=== PATIENT | female | born 1965 | race Caucasian/White ===

== ENCOUNTER 2020-04-07 15:12 | Outpatient (REF) | payer MEDICAID, SELFPAY ==
--- NOTE | 2020-04-07 | US_ITS ---
EXAMINATION: US ABDOMEN COMPLETE CLINICAL INFORMATION: 54-year-old female with left upper quadrant abdominal pain.. COMPARISON: Abdominal ultrasound February 20, [address] abdomen pelvis January 11, 2011 TECHNIQUE: Real-time imaging of the abdominal viscera. FINDINGS: PANCREAS: Visualized portions of pancreas are normal in appearance. ABDOMINAL AORTA: The proximal, mid, and distal segments are normal in caliber. INFERIOR VENA CAVA: Visualized portions are normal. LIVER: The liver is normal in size. The liver contour is normal. Echogenicity is diffusely increased. No focal hepatic lesion. There is no intrahepatic biliary duct dilatation seen. GALLBLADDER: Normal. The gallbladder is physiologically distended without evidence of stones, sludge, polyps, wall thickening or pericholecystic fluid. Negative sonographic Thorpe's sign. COMMON BILE DUCT: Normal in caliber measuring 0.3 cm in diameter. RIGHT KIDNEY: Normal. No hydronephrosis. No renal calculi or focal parenchymal lesions. The kidney measures 11.5 cm in maximum dimension. LEFT KIDNEY: Normal. No hydronephrosis. No renal calculi or focal parenchymal lesions. The kidney measures 11.3 cm in maximum dimension. SPLEEN: Normal. The spleen measures 7.2 cm in maximum dimension. FREE FLUID: None. US/US abdomen complete IMPRESSION: Diffusely increased liver echogenicity. This is a nonspecific finding but most suggestive of hepatic steatosis. Correlation with liver enzymes recommended.
== END 2020-04-07 15:13 | disposition home or self-care (01) ==
LOC: HO.HMGCX 15:12
PROVIDERS: Visit Provider Emergency Medicine
DX: R10.9 Unspecified abdominal pain (principal)
CPT/HCPCS: 76700

== ENCOUNTER 2020-08-01 15:15 | Emergency (ER) | payer MEDICAID, SELFPAY ==
--- NOTE | ~2020-08-01 | XR_ITS ---
EXAMINATION: LEFT SHOULDER, LEFT RIBS, LUMBAR SPINE CLINICAL INFORMATION: Low back pain along with chest and left shoulder pain after fall COMPARISON: Chest radiograph 11/26/2019, lumbar spine radiographs 02/23/2018 TECHNIQUE: Single view chest with 5 additional views left RIBS, 3 views left shoulder, 3 views lumbosacral spine FINDINGS: Chest and ribs: No significant abnormality is seen involving the heart lungs or bony thorax. No acute displaced rib fractures are seen. Left shoulder: No bone joint or soft tissue abnormality is seen. Lumbar spine: There is mild scoliosis convex to the left. Degenerative changes are present in the lower thoracic spine as well as lower lumbar sacral spine which have progressed minimally when compared to 02/23/2018. No acute fractures are seen. XR/XR shoulder LT min 2V IMPRESSION: No evidence of an acute injury. Degenerative changes present in the lumbosacral spine.
--- NOTE | ~2020-08-01 | XR_ITS ---
EXAMINATION: LEFT SHOULDER, LEFT RIBS, LUMBAR SPINE CLINICAL INFORMATION: Low back pain along with chest and left shoulder pain after fall COMPARISON: Chest radiograph 11/26/2019, lumbar spine radiographs 02/23/2018 TECHNIQUE: Single view chest with 5 additional views left RIBS, 3 views left shoulder, 3 views lumbosacral spine FINDINGS: Chest and ribs: No significant abnormality is seen involving the heart lungs or bony thorax. No acute displaced rib fractures are seen. Left shoulder: No bone joint or soft tissue abnormality is seen. Lumbar spine: There is mild scoliosis convex to the left. Degenerative changes are present in the lower thoracic spine as well as lower lumbar sacral spine which have progressed minimally when compared to 02/23/2018. No acute fractures are seen. XR/XR lumbar spine 2-3V IMPRESSION: No evidence of an acute injury. Degenerative changes present in the lumbosacral spine.
--- NOTE | ~2020-08-01 | XR_ITS ---
EXAMINATION: LEFT SHOULDER, LEFT RIBS, LUMBAR SPINE CLINICAL INFORMATION: Low back pain along with chest and left shoulder pain after fall COMPARISON: Chest radiograph 11/26/2019, lumbar spine radiographs 02/23/2018 TECHNIQUE: Single view chest with 5 additional views left RIBS, 3 views left shoulder, 3 views lumbosacral spine FINDINGS: Chest and ribs: No significant abnormality is seen involving the heart lungs or bony thorax. No acute displaced rib fractures are seen. Left shoulder: No bone joint or soft tissue abnormality is seen. Lumbar spine: There is mild scoliosis convex to the left. Degenerative changes are present in the lower thoracic spine as well as lower lumbar sacral spine which have progressed minimally when compared to 02/23/2018. No acute fractures are seen. XR/XR ribs LT min 3V w CXR1V IMPRESSION: No evidence of an acute injury. Degenerative changes present in the lumbosacral spine.
[2020-08-01 15:39] VITALS: BP 149/86; PULSE 82; RESP 16; TEMP 36.2; O2SAT 99; BMI 36.9
--- NOTE | 2020-08-01 17:56 | ED.FALL ---
HPI - Fall General Chief Complaint: Back Pain/Injury Stated Complaint: back pain Time Seen by Provider: 08/01/20 17:09 Source: patient and seismic interpreter Mode of arrival: ambulatory Limitations: no limitations and language barrier History of Present Illness HPI Narrative: 55 yo female with past medical history of arthritis, diabetes, hypertension, spinal stenosis here with complaints of fall. Patient tells me that she has chronic back pain and left lower extremity weakness for years. She tells me this is secondary to her spinal stenosis. Sometimes her leg gives out on her and 2 weeks ago her left leg gave out causing her to fall on her left side. She is here complaining of left shoulder pain, left rib pain, acute on chronic low back pain. There was no head injury or loss of consciousness. No anticoagulation use. Has chronic neck pain but does not feel its worst. No chest pain or abdominal pain. No nausea, vomiting, vision changes, headache. Using Voltaren topical, taking Flexeril and Percocet with continued pain Related Data Previous Rx's Medication Instructions Recorded lidocaine [Lidoderm] 1 patch TOPICAL DAILY #15 ea 08/01/20 Allergies Allergy/AdvReac Type Severity Reaction Status Date / Time Iodinated Contrast Media Allergy Unknown UNKNOWN Verified 08/01/20 19:53 [IV Dye, Iodine Containing] paroxetine [From Paxil] Allergy Depression Verified 08/01/20 19:53 methocarbamol [From ROBAXIN] AdvReac Unknown JAUNDICE Verified 08/01/20 19:53 Review of Systems Review of Systems: Yes all other systems are reviewed and are negative Constitutional: Constitutional: Reports no additional constitutional complaints, Denies body ache(s), Denies chills, Denies fever(s), Denies headache(s) and Denies weakness Eyes: Eyes: Reports no additional eye complaints and Denies change in vision ENT: Reports system reviewed and no additional complaints, except as documented, Denies dizziness, Denies headache(s), Denies nasal congestion, Denies nasal discharge and Denies neck pain Cardiovascular: Cardiovascular: Reports no additional cardiovascular complaints, Denies chest pain, Denies leg edema and Denies dyspnea Respiratory: Respiratory: Reports no additional respiratory complaints, Denies cough and Denies dyspnea Gastrointestinal: Gastrointestinal: Reports no additional gastrointestinal complaints, Denies abdominal pain, Denies diarrhea, Denies nausea and Denies vomiting Genitourinary: Genitourinary: Reports no additional female genitourinary complaints and Denies urinary incontinence Musculoskeletal: Musculoskeletal: Reports no additional musculoskeletal complaints, Reports back pain, Reports arthralgias, Denies joint swelling, Reports limited range of motion, Denies neck pain, Denies numbness and Denies tingling Integumentary/Breasts: Skin/Breast: Reports system reviewed and no additional complaints, except as docu and Denies rash Neurologic: Reports system reviewed and no additional complaints, except as documented, Denies Abnormal speech present, Denies dizziness, Denies headache(s), Denies numbness, Denies tingling and Denies weakness [facility] Past Medical History Attestation statement: The following information was validated with the patient. Source: old records reviewed and nursing notes reviewed Medical History Arthritis Diabetes HTN (hypertension) Spinal stenosis Social History Social History Advance Directives: No Advance Directives Information Provided: No Physical Exam Vital Signs: Vital Signs: Last Vital Signs Temp 97.2 F 08/01/20 15:39 Pulse 64 08/01/20 18:36 Resp 16 08/01/20 18:36 BP 149/86 H 08/01/20 15:39 Pulse Ox 97 08/01/20 18:36 Body Mass Index 36.9 Const: General: cooperative, healthy appearing, comfortable and no acute distress Orientation/consciousness: patient oriented x3 Limitations: no limitations HENMT: Head: Yes normal to inspection Ears: hearing grossly normal bilaterally General nose exam: Normal external nose present Face and sinus: Yes normal facial exam Mouth: Normal oral and palatal mucosa present Throat: Yes posterior oropharynx normal Eyes: General: appearance normal, both eyes and all related structures Pupils: Equal, round and reactive pupils present Neck: Other: No midline tenderness, step-offs or deformities. Full range of motion Neck: Yes normal visual inspection Chest: Other: Left rib tenderness with no ecchymosis, crepitus or deformity. Chest palpation & inspection: normal inspection of the chest Resp: Effort & Inspection: normal respiratory effort Auscultation: clear to auscultation bilaterally Cardio: Rate: regular rate Rhythm: regular rhythm Peripheral pulses: Peripheral pulses 2+ throughout GI: Inspection: Yes normal to inspection Palpation (GI): Soft to palpation and nontender Auscultation: normal bowel sounds Back/Spine/Pelvis: Other: Moderate lumbar midline tenderness with no step-offs or deformities. There is also tenderness over the lumbar left soft tissue area. Palpable muscle spasm. Worsened with flexion and extension of the lumbar spine. Thoracic/Lumbar Spine: thoracic and lumbar spine normal to inspection Skin: General skin exam: no rashes or lesions noted Neuro: Other: Right upper extremity 5/5 strength. Right lower extremity 5/5 strength. Left lower extremity 3/5-significant pain. Patient tells me this is her baseline. Limited range of motion to the left upper extremity due to shoulder pain. Strength in left hand 5/5 General: patient oriented x3 and normal sensation to monofilament Cranial nerves: Yes Equal, round and reactive pupils present Cognition (Neuro): normal cognition Speech: No Abnormal speech present Gait exam (Neuro): Normal gait present Sensory Exam: Normal double simultaneous stimulation for sensation Extrem: General: Yes normal to inspection, Yes no pedal edema and Yes no calf tenderness Left upper extremity: normal to inspection (Tenderness to the left anterior shoulder with limited abduction due to pain) and normal capillary refill; no cyanosis and no edema Course Course Course Narrative: 55-year-old female here status post mechanical fall with complaints of left shoulder pain, left rib pain, acute on chronic low back pain. She has weakness in the left lower extremity which she tells me is chronic and unchanged from previous. Will check imaging. Provide analgesia and reassess 2000-imaging unremarkable. Pain is improving with Toradol. Recommended patient follow-up with her primary care doctor as she has chronic pain. Reviewed worrisome signs and symptoms when to return to the emergency department. Comfortable discharge home. MDM - Fall Medical Records Attestation: I reviewed the patient's medical records. Lab Data Attestation: I reviewed the patient's lab results. Imaging Data lumbar spine: Attestation: I personally reviewed and interpreted this imaging study as follows: Radiologist's impression: Lumbar spine: There is mild scoliosis convex to the left. Degenerative changes are present in the lower thoracic spine as well as lower lumbar sacral spine which have progressed minimally when compared to 02/23/2018. No acute fractures are seen. shoulder xray: Attestation: I personally reviewed and interpreted this imaging study as follows: Radiologist's impression: Left shoulder: No bone joint or soft tissue abnormality is seen. ribs/chest: Attestation: I personally reviewed and interpreted this imaging study as follows: Radiologist's impression: Chest and ribs: No significant abnormality is seen involving the heart lungs or bony thorax. No acute displaced rib fractures are seen. Discharge Plan Discharge Clinical Impression: Strain of lumbar region, Fall Contusion Qualifiers: Encounter type: initial encounter Contusion area: shoulder Laterality: left Qualified Code(s): S40.012A - Contusion of left shoulder, initial encounter Patient Disposition: Home, Self-Care Instructions: Contusion in Adults (ED), Fall Prevention (ED) Additional Instructions: Alternate heat or ice Gentle stretching Follow-up with your primary care doctor Continue your flexeril, percocet, voltaren cream Discuss with your doctors about your medications and dosage Prescriptions: New lidocaine [Lidoderm] 5 % adhesive patch,medicated 1 patch topical DAILY Qty: 15 RF: 0 Referrals: Sienna Molina MD [Primary Care Provider] - 2 days Interventions: ED Discharge Assessment Last Done: 08/01/20 19:53 Discharge Date/Time: 08/01/20 19:57 Print Language: Hebrew
[2020-08-01] MEDS: Ketorolac Tromethamine 60 MG/2 ML VIAL IM (18:29)
[2020-08-01 18:36] VITALS: PULSE 64; RESP 16; O2SAT 97
== END 2020-08-01 19:57 | disposition home or self-care (01) ==
PROVIDERS: Emergency Provider Internal Medicine; PCP Family Medicine
DX: S39.012A Strain of muscle, fascia and tendon of lower back, initial encounter (principal); S40.012A Contusion of left shoulder, initial encounter; W17.89XA Other fall from one level to another, initial encounter; E11.9 Type 2 diabetes mellitus without complications; I10 Essential (primary) hypertension; Y93.9 Activity, unspecified; Y92.039 Unspecified place in apartment as the place of occurrence of the external cause; Y99.9 Unspecified external cause status
CPT/HCPCS: 71101; 72100; 73030; 96372; 99284; J1885

== ENCOUNTER → 2020-08-30 13:09 | Outpatient (BNVA) | payer MEDICAID, SELFPAY | PROVIDERS: Visit Provider Internal Medicine Pulmonary Disease | DX: J45.50 Severe persistent asthma, uncomplicated (principal); Z91.09 Other allergy status, other than to drugs and biological substances | CPT/HCPCS: 99212 ==

== ENCOUNTER 2020-11-11 13:28 | Outpatient (REF) | payer MEDICAID, SELFPAY | END 2020-11-11 13:29 | disposition home or self-care (01) | LOC: HO.MDS 13:28 | PROVIDERS: PCP Family Medicine; Visit Provider Internal Medicine Pulmonary Disease | DX: J45.50 Severe persistent asthma, uncomplicated (principal) | CPT/HCPCS: 96372 ==

== ENCOUNTER 2020-12-06 12:48 | Outpatient (REF) | payer MEDICAID, SELFPAY | END 2020-12-06 12:49 | disposition home or self-care (01) | LOC: HO.MDS 12:48 | PROVIDERS: PCP Family Medicine; Visit Provider Internal Medicine Pulmonary Disease | DX: J45.50 Severe persistent asthma, uncomplicated (principal) | CPT/HCPCS: 96372; J2357 ==

== ENCOUNTER 2020-12-29 13:23 | Outpatient (REF) | payer MEDICAID, SELFPAY | END 2020-12-29 13:24 | disposition home or self-care (01) | LOC: HO.MDS 13:23 | PROVIDERS: PCP Family Medicine; Visit Provider Internal Medicine | DX: J45.50 Severe persistent asthma, uncomplicated (principal) | CPT/HCPCS: 96372; J2357 ==

== ENCOUNTER 2020-12-29 14:32 | Emergency (ER) | payer MEDICAID, SELFPAY ==
[2020-12-29 14:40] VITALS: BP 164/85; PULSE 93; RESP 18; O2SAT 97
== END 2020-12-29 15:30 | disposition left against medical advice (07) ==
PROVIDERS: Emergency Provider Emergency Medicine
DX: R55 Syncope and collapse (principal)

== ENCOUNTER 2021-09-22 09:31 | Outpatient (REF) | payer MEDICAID, SELFPAY ==
--- NOTE | ~2021-09-22 | XR_ITS ---
EXAMINATION: XR HAND, BILATERAL CLINICAL INFORMATION: Bilateral hand pain. COMPARISON: None TECHNIQUE: 3 views of each hand. FINDINGS: Left Hand: There is a loss of PIP and DIP joint space all hands. The MCP, CMCP and intercarpal joint spaces are normal. Minimal deformity DIP joint 5th digit is noted. No visible acute fracture, dislocation or subluxation seen. Right Hand: There is loss of PIP and DIP joint space without bony erosive changes or spurring. There is mild deformity DIP joint 5th digit. No visible acute fracture or dislocation seen. The soft tissues are normal. XR/XR hand LT min 3V IMPRESSION: Early degenerative arthritic changes PIP and DIP joints without bony erosive changes or spurring. Mild deformity DIP joint 5th digits of both hands.
--- NOTE | ~2021-09-22 | XR_ITS ---
EXAMINATION: XR HAND, BILATERAL CLINICAL INFORMATION: Bilateral hand pain. COMPARISON: None TECHNIQUE: 3 views of each hand. FINDINGS: Left Hand: There is a loss of PIP and DIP joint space all hands. The MCP, CMCP and intercarpal joint spaces are normal. Minimal deformity DIP joint 5th digit is noted. No visible acute fracture, dislocation or subluxation seen. Right Hand: There is loss of PIP and DIP joint space without bony erosive changes or spurring. There is mild deformity DIP joint 5th digit. No visible acute fracture or dislocation seen. The soft tissues are normal. XR/XR hand RT min 3V IMPRESSION: Early degenerative arthritic changes PIP and DIP joints without bony erosive changes or spurring. Mild deformity DIP joint 5th digits of both hands.
[2021-09-22 10:45] LABS: Hematocrit 35.7 % (37.0-47.0); Hemoglobin 11.9 g/dl (12.0-16.0); Mean Corpuscular HGB Conc 33.3 g/dl (31.0-35.0); Mean Corpuscular Hemoglobin 29.7 pg (27.0-33.0); Mean Platelet Volume 9.3 fL (9.4-12.3); Platelet Count 265 X10*3/uL (160-400); Red Blood Count 4.01 X10*6/uL (4.20-5.50); Red Cell Distribution Width 14.9 % (11.0-16.0); White Blood Count 6.1 X10*3/uL (4.8-10.8)
[2021-09-22 11:11] LABS: Cholesterol 180 mg/dL; HDL Cholesterol 36 mg/dL; LDL Cholesterol Calculated 126 mg/dl; Triglycerides 94 mg/dL
[2021-09-22 11:27] LABS: TSH reflex Free T4 1.24 uIU/mL (0.32-4.0)
[2021-09-22 11:30] LABS: Estimated Average Glucose 114 mg/dL; Hemoglobin A1c % 5.6 %
== END 2021-09-22 09:32 | disposition home or self-care (01) ==
LOC: HO.LAB 09:31
PROVIDERS: PCP General Practice; Visit Provider General Practice
DX: E11.8 Type 2 diabetes mellitus with unspecified complications (principal); M79.641 Pain in right hand; M79.642 Pain in left hand
CPT/HCPCS: 36415; 73130; 80061; 83036; 84443; 85027

== ENCOUNTER 2021-09-26 13:03 | Outpatient (REF) | payer MEDICAID, SELFPAY ==
[2021-09-26 14:41] LABS: Creatinine Urine 151.39 mg/dL; Microalbumin Urine < 5.0 mg/L
== END 2021-09-26 13:04 | disposition home or self-care (01) ==
LOC: HO.LAB 13:03
PROVIDERS: PCP General Practice; Visit Provider General Practice
DX: E11.8 Type 2 diabetes mellitus with unspecified complications (principal)
CPT/HCPCS: 82043

== ENCOUNTER 2022-01-28 17:14 | Emergency (ER) | payer MEDICAID, SELFPAY ==
--- NOTE | ~2022-01-28 | CT_ITS ---
EXAMINATION: CT ABDOMEN AND PELVIS WITHOUT CONTRAST CLINICAL INFORMATION: Lower back pain. COMPARISON: Abdominal ultrasound 03/2020. CT scan of the abdomen and pelvis 12/2010. TECHNIQUE: Multidetector volumetric imaging was performed from the superior aspect of the liver through the pubic symphysis. Sagittal and coronal reformatted images were obtained on the technologist's workstation. This CT examination was performed using dose optimization techniques as appropriate, variously including the following: *Automated exposure control *Adjustment of mA and/or kV according to patient size (this includes techniques or standardized protocols for targeted exams where dose is matched to indication/reason for exam; i.e. extremities or head) *Use of iterative reconstruction technique DLP: 793 mGy-cm FINDINGS: LUNG BASES: The visualized lung bases are unremarkable. LIVER, GALLBLADDER, AND BILIARY TREE: The liver is normal in size, shape, and attenuation. No focal hepatic lesion or biliary ductal dilatation is present. The gallbladder is unremarkable with no evidence of radiopaque gallstones, gallbladder wall thickening, or obvious pericholecystic inflammatory changes. PANCREAS: Unremarkable. SPLEEN: Unremarkable. ADRENAL GLANDS: Unremarkable. KIDNEYS AND URETERS: There is a small 1 mm nonobstructing calculus in the mid to upper portion of the right kidney which is unchanged. No hydronephrosis or hydroureter. BLADDER: Unremarkable. GASTROINTESTINAL TRACT: Appendix not clearly visualized. No inflammatory changes in the right lower quadrant. Large and small bowel normal. Stomach is normal. ABDOMINAL WALL: No significant hernia is appreciated. LYMPH NODES: Normal. VASCULAR: [id number] arterial calcification noted. PELVIC VISCERA: Calcification within the left uterus likely representing a partially calcified fibroid, unchanged compared with prior exam. OSSEOUS STRUCTURES: Multilevel spondylosis of lumbosacral spine. Mild- to-moderate disc space narrowing at the L5-S1 levels with endplate osteophytes. Mild degenerative disc changes present at the L2-L3, L3-L4 and L4-L5 levels, manifested by endplate osteophytes. Facet arthrosis is present at the L3-L4 level. There is narrowing of the central canal at the L3-L4 and L4-L5 level secondary to bulging of the disc and hypertrophy of the ligamentum flavum. Mild osteoarthritis of both hips with subchondral cystic change present. CT/CT abdomen pelvis wo IV con IMPRESSION: No acute abnormality. Multilevel spondylosis of the lumbosacral spine with evidence of central lumbar stenosis at the L3-L4 and L4-L5 levels. Fleischner guidelines were followed.
--- NOTE | ~2022-01-28 | CT_ITS ---
EXAMINATION: CT THORACIC SPINE WITHOUT CONTRAST CLINICAL INFORMATION: Thoracic spine pain. COMPARISON: CT scan abdomen pelvis 01/11/2011. Lumbar spine plain film study 08/01/2020 TECHNIQUE: Axial images obtained through the thoracic spine. Coronal and sagittal reformatted images are performed at CT scanner This CT examination was performed using dose optimization techniques as appropriate, variously including the following: *Automated exposure control *Adjustment of mA and/or kV according to patient size (this includes techniques or standardized protocols for targeted exams where dose is matched to indication/reason for exam; i.e. extremities or head) *Use of iterative reconstruction technique DLP: 792.65 mGy-cm FINDINGS: Slight compression of both the superior and inferior endplate of the posterior T11 vertebral body. This is chronic in appearance. No paraspinal hematoma. There is no fracture line. No retropulsed fragment. The remainder of the thoracic spine vertebrae have normal height. There is normal alignment of the vertebrae. Mild degenerative spondylosis of multilevel disc height narrowing and vertebral endplate spur throughout the thoracic spine. CT/CT thoracic spine wo IV con IMPRESSION: Slight compression of both the superior and inferior posterior endplate of the T11 vertebrae. This is chronic in appearance. No acute abnormality the thoracic spine. There is multilevel degenerative spondylosis of the spine. Fleischner guidelines were followed.
[2022-01-28 18:26] VITALS: BP 130/79; PULSE 88; RESP 20; TEMP 36.1; O2SAT 100; BMI 36.9
[2022-01-28 20:00] VITALS: RESP 18
--- NOTE | 2022-01-28 21:51 | ED_ITS ---
HPI - Back Pain/Injury General Chief Complaint: Back Pain/Injury Stated Complaint: Back Leg Pain No Injury Time Seen by Provider: 01/28/22 20:23 Source: patient and family Mode of arrival: ambulatory Limitations: no limitations History of Present Illness HPI Narrative: 56-year-old female past medical history significant for OSVALDO, allergies, asthma, hypertension, diabetes, spinal stenosis, history of greater than 10 herniated disc, osteoporosis, RA presenting to the emergency department with acute on chronic back pain times a few days worsening. Patient tells me that this feels like her typical back pain, it starts right below the bra line bilaterally and goes all the way down into her lower back and at time radiates to bilateral lower extremities just above the knee. Patient tells me that she used to see [facility] however has not seen them for a long time, her current back pain is being managed by her PCP, she tells me she is on oxycodone 5 mg t.i.d. daily for pain. She denies any trauma the back. She tells me it is extremely difficult to ambulate as she is having such significant pain, tells me she is ambulating with a cane. She reports that the reason she came in today is because she feels as though her pain medication is not helping or working. She tells me cyclobenzaprine does not work, Lidoderm patches do not work, oxycodone does not work. She reports that this is a chronic issue she has been dealing with for a long time. Patient denies fevers, chills, chest pain, shortness of breath, headache, dizziness, weakness, bladder/bowel incontinence / retention, saddle paresthesias, IV drug abuse. MD elicited complaint: back pain Related Data Previous Rx's Medication Instructions Recorded omalizumab 150 mg subcutaneous 375 mg subcut Q2W 28 days #1 ea 10/03/20 solution (Xolair) albuterol sulfate 2.5 mg/3 mL 2.5 mg (3 mL) inhalation Q4H PRN 12/07/20 (0.083 %) solution for nebulization shortness of breath or wheezing #180 mL albuterol sulfate 90 mcg/actuation 2 puff inhalation Q4H PRN 06/16/21 aerosol inhaler (ProAir HFA) shortness of breath or wheezing #1 ea fluticasone 250 mcg-salmeterol 50 1 inh inhalation BID 30 days #1 ea 01/24/22 mcg/dose blistr powdr for inhalation (Wixela Inhub) ketorolac 10 mg tablet 10 mg PO TID PRN pain 5 days #15 01/28/22 tabs lidocaine 5 % topical cream 1 appl topical BID PRN pain #28.35 01/28/22 grams Allergies Allergy/AdvReac Type Severity Reaction Status Date / Time Iodinated Contrast Media Allergy Unknown UNKNOWN Verified 08/30/20 13:14 [IV Dye, Iodine Containing] morphine Allergy Rash Verified 01/28/22 21:55 paroxetine [From Paxil] Allergy Depression Verified 08/30/20 13:14 methocarbamol [From ROBAXIN] AdvReac Unknown JAUNDICE Verified 08/30/20 13:14 Review of Systems Review of Systems: Constitutional : No Weight loss, No Fever, No Chills, No Fatigue, No Malaise ENT/Mouth : No sore throat, No Rhinorrhea Eyes: No Eye Pain, No Swelling, No Redness Cardiovascular : No Chest Pain, No SOB, No Dyspnea on Exertion, No Orthopnea, No Edema, No Palpitations Respiratory : No Cough, No Sputum, No Wheezing Gastrointestinal : No Nausea, No Vomiting, No Diarrhea, No Constipation, No abdominal Pain, No Hematochezia, No Melena Genitourinary : No Dysuria, No Urinary Frequency, No Hematuria, Musculoskeletal : + joint pain, No Myalgias, No Joint Swelling Skin : No Skin Lesions, No rash Neuro : No Weakness, No Numbness, No Dizziness, No Headache All other systems reviewed and are negative Yes all other systems are reviewed and are negative [facility] Past Medical History Attestation statement: The following information was validated with the patient. Source: old records reviewed and nursing notes reviewed Medical History Arthritis Diabetes HTN (hypertension) Spinal stenosis Social History Social History Advance Directives: No Advance Directives Information Provided: No Physical Exam Vital Signs: Vital Signs: Last Vital Signs Temp 97 F 01/28/22 18:26 Pulse 88 01/28/22 18:26 Resp 18 01/29/22 00:00 BP 130/79 01/28/22 18:26 Pulse Ox 100 01/28/22 18:26 O2 Del Method 01/29/22 00:00 BMI result Body Mass Index 36.9 VSS Appearance: Alert.? Oriented X3.? No acute distress.? Head: Normocephalic, atraumatic, no step-offs or deformities Eyes: Pupils equal, round and reactive to light.? Neck: Normal inspection.? Neck supple.? CVS: Normal heart rate and rhythm.? Pulses normal.? Respiratory: No respiratory distress.? Breath sounds normal.? Abdomen: Soft and nontender.? Skin: Skin warm and dry.? Normal skin color.? Normal skin turgor.? Extremities: No lower extremity edema.? No calf ttp. 5/5 strength to bilateral upper and lower extremities Back: No midline tenderness, no C-spine tenderness, full range of motion However extremely painful., no CVA tenderness bilaterally + Lumbar and thoracic paraspinous tenderness bilaterally. Neuro: Oriented X 3.? No motor deficit.? No sensory deficit. CN 2-12 intact . Patient ambulating steady gait with cane. No saddle paresthesias. 2+ patellar DTRs to bilateral lower extremities. Course Reevaluation(s) Reevaluation #1: patient reports significant improvement after Toradol. Imaging pending. Patient was able to ambulate to the bathroom without difficulties, ambulating with steady gait normal coordination. Time: 23:24 Reevaluation #2: Will obtain renal functions to ensure patient can take p.o. Toradol. Discussed this case w/ my attending who agrees with my dx and tx plan/. Time: 23:31 Reevaluation #3: CBC w/ in normal limits, chemistry w/o electrolyte abnormalities, CRP slightly elevated however likely secondary to chronic back pain, at this time patient will be discharged home with PO toradol. Advised to follow-up with [facility], advised to return with new or worsening symptoms. At this time I feel comfortable discharge. At time of discharge patient reports slight improvement in pain, patient ambulating with steady gait normal coordination. At this time I feel comfortable with discharge home. Time: 00:23 MDM - Back Pain/Injury MDM Narrative Medical decision making narrative: 2100 56-year-old female presents with acute on chronic back pain, without trauma. Physical examination with pain with range of motion to back, and paraspinous tenderness to palpation to lumbar, thoracic region. Patient reports that ambulation makes her pain worse. Patient ambulating with steady gait with walker however in pain. 2+ patellar reflexes equal bilateral. No saddle paresthesias. Neuro exam nonfocal. Regular rate and rhythm, lungs clear, abdomen soft nontender nondistended. Stable vital signs. History and physical examination with low suspicion for cauda equina, epidural abscess. Likely lumbar/thoracic radiculopathy or sprain/ strain. For herniated disc. Plan at this time is to obtain basic imaging as patient tells me she has not had this done in years. Patient is not being followed by any providers at this time for her back pain, she tells me it is being managed by her PCP. Medical Records Attestation: I reviewed the patient's medical records. Lab Data Attestation: I reviewed the patient's lab results. Result diagrams: 01/28/22 23:48 01/28/22 23:48 Labs: Lab Results 01/28/22 01/28/22 Range/Units 23:48 23:48 WBC 7.9 (4.8-10.8) X10*3/uL RBC 4.09 L (4.20-5.50) X10*6/uL Hgb 12.1 (12.0-16.0) g/dl Hct 36.6 L (37.0-47.0) % MCV 89.5 (80.0-98.0) fL MCH 29.6 (27.0-33.0) pg MCHC 33.1 (31.0-35.0) g/dl RDW 15.0 (11.0-16.0) % Plt Count 259 (160-400) X10*3/uL MPV 9.1 L (9.4-12.3) fL Immature Gran % (Auto) 0.3 (0.0-0.4) % Neut % (Auto) 54.3 (45-73) % Lymph % (Auto) 35.7 (20-40) % Harrison % (Auto) 7.5 (2-11) % Eos % (Auto) 1.9 (0-4) % Baso % (Auto) 0.3 (0-2) % Lymph # (Auto) 2.8 (1.2-4.9) X10*3/uL Harrison # (Auto) 0.6 (0.1-1.2) X10*3/uL Eos # (Auto) 0.2 (0.0-0.4) X10*3/uL Baso # (Auto) 0.0 (0.0-0.2) X10*3/uL Abs Immat Gran (auto) 0.02 (0.00-0.03) X10*3/uL Absolute Neuts (auto) 4.3 (2.0-8.3) x10*3/uL Absolute Nucleated RBC 0.000 (0.0-0.012) X10*3/uL Nucleated RBC % (auto) 0.0 (0.0-0.2) /100WBC Sodium 140 (135-145) mmol/L Potassium 3.8 (3.3-5.1) mmol/L Chloride 98 (96-108) mmol/L Carbon Dioxide 29 (22-29) mmol/L Anion Gap 17 (12-20) BUN 14 (9-16) mg/dL Creatinine 0.94 (0.5-1.4) mg/dL Estim Creat Clear Calc 90.8 Estimated GFR > 60 Random Glucose 79 (60-115) mg/dL Calcium 9.3 (8.4-10.2) mg/dL Total Bilirubin 0.5 (0.0-1.0) mg/dL AST 26 (5-31) U/L ALT 14 (0-31) U/L Alkaline Phosphatase 107 (39-117) U/L C-Reactive Protein 1.20 H (< or = 0.50) mg/dL Total Protein 7.5 (6.5-8.0) g/dL Albumin 4.1 (3.5-5.0) g/dL Critical Care Time Critical Care Time Critical Care Time: No Discharge Plan Discharge Clinical Impression: Acute exacerbation of chronic low back pain, Thoracic back pain Patient Disposition: Home, Self-Care Instructions: Pain Management (ED), Back Pain (ED) Additional Instructions: Take your medications as prescribed. If you were prescribed antibiotics today, it is important that you take your medication to their entirety, do not skip any doses, do not finish them early. Follow-up with your primary care provider this week. please follow-up with [facility] Return to the emergency department with new or worsening symptoms. Such as fevers, chills, chest pain, shortness of breath, nausea, vomiting, dizziness, headache, vision changes, lethargy In case of emergency call 911 please do not take ibuprofen with Toradol or any blood thinners. [place] fr[place] medicamentos seg?n lo prescrito. Si le recetaron antibi?ticos hoy, es importante que tome cunningham medicamento en cunningham totalidad, no se salte ninguna dosis, no los termine antes de tiempo. Seguimiento con cunningham proveedor de atenci?n primaria esta semana. por favor, seguimiento con la columna vertebral y el deporte Regrese al departamento de emergencias con s?ntomas nuevos o que empeoran. [facility] fiebre, escalofr?os, dolor de pecho, dificultad para respirar, n?useas, v?mitos, mareos, dolor de flori, cambios en la visi?n, letargo En harris de emergencia llama al 911 por favor, no tome ibuprofeno con Toradol ni wiley?n anticoagulante. Prescriptions: New lidocaine 5 % cream 1 appl topical BID PRN (Reason: pain) Qty: 28.35 0RF ketorolac 10 mg tablet 10 mg PO TID PRN (Reason: pain) 5 Days Qty: 15 0RF Rx Instructions: Patient tolerated I a.m. Toradol in the emergency department Discontinued lidocaine [Lidoderm] 5 % adhesive patch,medicated 1 patch topical DAILY Qty: 15 0RF Rx Instructions: leave on most painful area for up to 12 hrs No Action albuterol sulfate 2.5 mg /3 mL (0.083 %) solution for nebulization 2.5 mg inhalation Q4H PRN (Reason: shortness of breath or wheezing) Qty: 180 1RF albuterol sulfate [ProAir HFA] 90 mcg/actuation HFA aerosol inhaler 2 puff inhalation Q4H PRN (Reason: shortness of breath or wheezing) Qty: 1 6RF fluticasone propion-salmeterol [Wixela Inhub] 250-50 mcg/dose blister with device 1 inh inhalation BID 30 Days Qty: 1 6RF Xolair 150 mg recon soln 375 mg subcut Q2W 28 Days Qty: 1 12RF Rx Instructions: requires multiple injection sites; do not exceed 150 mg per injection site Referrals: [facility] [Provider Group] - 2 days Krys Myers MD [Primary Care Provider] - 2 days Stand Alone Forms: Work/School Release
[2022-01-28] MEDS: Ketorolac Tromethamine 15 MG/ML VIAL 30 MG IVPUSH (22:10)
[2022-01-28] MEDS: Lidocaine 4 % Patch ADH..PATCH 1 PATCH TRANSDERMA (22:11)
[2022-01-28 23:52] LABS: Basophils Percent Auto 0.3 % (0-2); Eosinophils Absolute Auto 0.2 X10*3/uL (0.0-0.4); Eosinophils Percent Auto 1.9 % (0-4); Hematocrit 36.6 % (37.0-47.0); Hemoglobin 12.1 g/dl (12.0-16.0); Imm Gran Abs Auto 0.02 X10*3/uL (0.00-0.03); Imm Gran Pct Auto 0.3 % (0.0-0.4); Lymphocytes Absolute Auto 2.8 X10*3/uL (1.2-4.9); Lymphocytes Percent Auto 35.7 % (20-40); MANUAL DIFF FLAG NO; Mean Corpuscular HGB Conc 33.1 g/dl (31.0-35.0); Mean Corpuscular Hemoglobin 29.6 pg (27.0-33.0); Mean Corpuscular Volume 89.5 fL (80.0-98.0); Mean Platelet Volume 9.1 fL (9.4-12.3); Monocytes Absolute Auto 0.6 X10*3/uL (0.1-1.2); Monocytes Percent Auto 7.5 % (2-11); Neutrophils Absolute Auto 4.3 x10*3/uL (2.0-8.3); Neutrophils Percent Auto 54.3 % (45-73); Platelet Count 259 X10*3/uL (160-400); Red Blood Count 4.09 X10*6/uL (4.20-5.50); White Blood Count 7.9 X10*3/uL (4.8-10.8)
[2022-01-29] VITALS: RESP 18
[2022-01-29 00:14] LABS: Alanine Aminotransferase 14 U/L (0-31); Albumin Level 4.1 g/dL (3.5-5.0); Alkaline Phosphatase 107 U/L (39-117); Anion Gap 17 (12-20); Aspartate Amino Transferase 26 U/L (5-31); Bilirubin Total 0.5 mg/dL (0.0-1.0); Blood Urea Nitrogen 14 mg/dL (9-16); Calcium 9.3 mg/dL (8.4-10.2); Carbon Dioxide 29 mmol/L (22-29); Chloride 98 mmol/L (96-108); Creatinine Clr Calc Pharmacy 90.8; Estimated Glomerular Filt Rate > 60; Glucose Random 79 mg/dL (60-115); Potassium 3.8 mmol/L (3.3-5.1); Sodium 140 mmol/L (135-145); Total Protein 7.5 g/dL (6.5-8.0)
[2022-01-29 00:25] LABS: Erythrocyte Sedimentation Rate 28 MM/HR (0-20)
== END 2022-01-29 00:34 | disposition home or self-care (01) ==
PROVIDERS: Physician Assistant; Emergency Provider Internal Medicine; PCP General Practice
DX: M54.50 Low back pain, unspecified (principal); M54.6 Pain in thoracic spine; R10.9 Unspecified abdominal pain; Z79.899 Other long term (current) drug therapy
CPT/HCPCS: 36415; 72128; 74176; 80053; 85025; 85652; 86140; 96374; 96375; 99284; J1885

== ENCOUNTER 2022-08-13 18:33 | Emergency (ER) | payer MEDICAID, SELFPAY ==
--- NOTE | ~2022-08-13 | XR_ITS ---
EXAMINATION: Bilateral knees. CLINICAL INDICATION: bilateral knee pain. COMPARISON: Right knee 09/22/2016 TECHNIQUE: 4 views of each knee. FINDINGS: Left knee: There is maintained tricompartment joint space with periarticular spurring in the lateral and patellofemoral compartments. No loose bodies or joint effusion seen. There is a lateral patellar spurring noted. Right knee: The joint spaces are maintained normal. There is moderate periarticular spurring lateral medial compartments. No joint effusion seen. No bony erosive changes. No loose bodies. XR/XR knee LT 4V IMPRESSION: Mild degenerative changes in both knees mild lateral patellar spurring seen in the right knee and lateral and patellofemoral compartment left knee.
--- NOTE | ~2022-08-13 | US_ITS ---
EXAMINATION: US VENOUS ULTRASOUND WITH DOPPLER LOWER EXTREMITY, BILATERAL CLINICAL INFORMATION: Bilateral lower extreme swelling and pain COMPARISON: None available. TECHNIQUE: Ultrasound of the deep veins is performed from the hip to the calf with compression sonography and color and pulse Doppler assessment. Spectral analysis with color-flow imaging is performed. FINDINGS: RIGHT: There is normal venous compression and respiratory variation and augmented flow. The visualized common femoral vein, superficial femoral vein, profunda femoral vein, popliteal vein, and the trifurcation region shows no evidence of deep venous thrombosis. Posterior tibial vein is not seen. There is no significant popliteal fossa cyst. LEFT: There is normal venous compression and respiratory variation and augmented flow. The visualized common femoral vein, superficial femoral vein, profunda femoral vein, popliteal vein, and the trifurcation region shows no evidence of deep venous thrombosis. The posterior tibial vein is not seen. There is no significant popliteal fossa cyst. If the patient's symptoms persist, followup ultrasound in 5 days 7 days might be of value to exclude proximal propagation from a non-visualized calf vein. US/US venous duplex LE BI IMPRESSION: No DVT demonstrated in the bilateral lower extremity.
--- NOTE | ~2022-08-13 | XR_ITS ---
EXAMINATION: Bilateral knees. CLINICAL INDICATION: bilateral knee pain. COMPARISON: Right knee 09/22/2016 TECHNIQUE: 4 views of each knee. FINDINGS: Left knee: There is maintained tricompartment joint space with periarticular spurring in the lateral and patellofemoral compartments. No loose bodies or joint effusion seen. There is a lateral patellar spurring noted. Right knee: The joint spaces are maintained normal. There is moderate periarticular spurring lateral medial compartments. No joint effusion seen. No bony erosive changes. No loose bodies. XR/XR knee RT 4V IMPRESSION: Mild degenerative changes in both knees mild lateral patellar spurring seen in the right knee and lateral and patellofemoral compartment left knee.
[2022-08-13 19:56] VITALS: BP 186/105; PULSE 86; RESP 16; TEMP 36.8; O2SAT 95; BMI 37.9
--- NOTE | 2022-08-13 19:56 | ED.GENADULT ---
HPI - General Adult General Chief complaint: General Medical <TINO Saleem - Last Filed: 08/13/22 20:00> Stated complaint: pain in both legs <TINO Saleem - Last Filed: 08/13/22 20:00> Time Seen by Provider: 08/13/22 21:25 <TINO Saleem - Last Filed: 08/13/22 20:00> Source: patient and family (Daughter) <German Beyer MD - Last Filed: 08/13/22 22:23> Mode of arrival: ambulatory <German Beyer MD - Last Filed: 08/13/22 22:23> Limitations: language barrier (Patient prefers speaking in [place] but [place] is a 1st language. She does ask her daughter to interpret some phrases) <German Beyer MD - Last Filed: 08/13/22 22:23> History of Present Illness HPI narrative: 57-year-old female who presents emergency department for evaluation of bilateral lower extremity pain, weakness and difficulty ambulating. The patient states that she has arthritis of her spine and spinal stenosis. She states that she has chronic lower back pain that radiates down both legs. She states that she normally takes gabapentin and oxycodone 5 mg 3 times a day for her pain. She states that 3 weeks prior she had a doctor's appointment and had a urine drug test and was told that there was no oxycodone in her urine and they only prescribed 1 week of oxycodone. Patient states that over the past 2 weeks she has had increased pain in her lower extremities. She states that her left knee is more swollen than the right. She states that in the middle of the night she wakes up and she feels like her legs are not there secondary to severe pain. She denied weakness of her lower extremities but states that is very difficult to work secondary to her pain. RME reviewed <German Beyer MD - Last Filed: 08/13/22 22:23> Related Data Home medications: Previous Rx's Medication Instructions Recorded omalizumab 150 mg subcutaneous 375 mg subcut Q2W 28 days #1 ea 10/03/20 solution (Xolair) albuterol sulfate 2.5 mg/3 mL 2.5 mg (3 mL) inhalation Q4H PRN 12/07/20 (0.083 %) solution for nebulization shortness of breath or wheezing #180 mL albuterol sulfate 90 mcg/actuation 2 puff inhalation Q4H PRN 06/16/21 aerosol inhaler (ProAir HFA) shortness of breath or wheezing #1 ea fluticasone 250 mcg-salmeterol 50 1 inh inhalation BID 30 days #1 ea 01/24/22 mcg/dose blistr powdr for inhalation (Wixela Inhub) ketorolac 10 mg tablet 10 mg PO TID PRN pain 5 days #15 01/28/22 tabs lidocaine 5 % topical cream 1 appl topical BID PRN pain #28.35 01/28/22 grams oxycodone 5 mg tablet 5 mg PO TID 5 days #15 tabs 08/13/22 <TINO Saleem - Last Filed: 08/13/22 20:00> Allergies/adverse reactions: Allergies Allergy/AdvReac Type Severity Reaction Status Date / Time Iodinated Contrast Media Allergy Unknown UNKNOWN Verified 08/30/20 13:14 [IV Dye, Iodine Containing] morphine Allergy Rash Verified 01/28/22 21:55 paroxetine [From Paxil] Allergy Depression Verified 08/30/20 13:14 methocarbamol [From ROBAXIN] AdvReac Unknown JAUNDICE Verified 08/30/20 13:14 <TINO Saleem - Last Filed: 08/13/22 20:00> Review of Systems Review of Systems: Yes all other systems are reviewed and are negative <German Beyer MD - Last Filed: 08/13/22 22:23> FORMERLY [facility], [facility] Past Medical History Attestation statement: The following information was validated with the patient. <German Beyer MD - Last Filed: 08/13/22 22:23> FORMERLY [facility], [facility] Narrative: Past medical history: Reviewed below. Social history: She denies tobacco, alcohol use. She states she occasionally uses marijuana. <Germna Beyer MD - Last Filed: 08/13/22 22:23> Medical History: Medical History Arthritis Diabetes HTN (hypertension) Spinal stenosis <TINO Saleem - Last Filed: 08/13/22 20:00> Social History Social History: Social History Advance Directives: No Advance Directives Information Provided: No <TINO Saleem - Last Filed: 08/13/22 20:00> Physical Exam ED Vital Signs: Vital Signs - 24 hr 08/13/22 19:56 Temperature 98.3 F Pulse Rate 86 Respiratory Rate 16 Blood Pressure 186/105 H Pulse Oximetry 95 BMI result Body Mass Index 37.9 <TINO Saleem - Last Filed: 08/13/22 20:00> Vital Signs - 24 hr 08/13/22 19:56 Temperature 98.3 F Pulse Rate 86 Respiratory Rate 16 Blood Pressure 186/105 H Pulse Oximetry 95 BMI result Body Mass Index 37.9 <German Beyer MD - Last Filed: 08/13/22 22:23> Const Other: Awake, alert, female patient, very pleasant cooperative, in no distress, answers all questions appropriately, elevated BMI 38 <German Beyer MD - Last Filed: 08/13/22 22:23> HENMT Head: Yes normal to inspection, Yes normocephalic and Yes atraumatic <German Beyer MD - Last Filed: 08/13/22 22:23> Ears: external ears normal <German Beyer MD - Last Filed: 08/13/22 22:23> General nose exam: Normal external nose present <German Beyer MD - Last Filed: 08/13/22 22:23> Face and sinus: Yes normal facial exam <German Beyer MD - Last Filed: 08/13/22 22:23> Mouth: Normal oral and palatal mucosa present <German Beyer MD - Last Filed: 08/13/22 22:23> Throat: Yes posterior oropharynx normal <German Beyer MD - Last Filed: 08/13/22 22:23> Eyes General: appearance normal, both eyes and all related structures <German Beyer MD - Last Filed: 08/13/22 22:23> Pupils: Equal, round and reactive pupils present <German Beyer MD - Last Filed: 08/13/22 22:23> Neck Neck: Yes normal visual inspection, Yes no lymphadenopathy, Yes trachea midline and Yes supple <German Beyer MD - Last Filed: 08/13/22 22:23> Chest Chest palpation & inspection: normal inspection of the chest and normal palpation of entire chest wall <German Beyer MD - Last Filed: 08/13/22 22:23> Resp Effort & Inspection: normal respiratory effort and able to speak in complete sentences <German Beyer MD - Last Filed: 08/13/22 22:23> Auscultation: clear to auscultation bilaterally <German Beyer MD - Last Filed: 08/13/22 22:23> Cardio Rate: regular rate <German Beyer MD - Last Filed: 08/13/22 22:23> Rhythm: regular rhythm <German Beyer MD - Last Filed: 08/13/22 22:23> Heart sounds: S1 normal heart sound present, S2 normal heart sound present and no murmurs <German Beyer MD - Last Filed: 08/13/22 22:23> GI Inspection: Yes normal to inspection <German Beyer MD - Last Filed: 08/13/22 22:23> Palpation (GI): Soft to palpation, nontender and no guarding <German Beyer MD - Last Filed: 08/13/22 22:23> Auscultation: normal bowel sounds <German Beyer MD - Last Filed: 08/13/22 22:23> Back/Spine/Pelvis Other: Patient has tenderness palpation of her lumbar sacral vertebrae as well as the paraspinal muscles in his region as well, there is no spasm. Negative straight leg raises bilaterally <German Beyer MD - Last Filed: 08/13/22 22:23> Skin General skin exam: no rashes or lesions noted <German Beyer MD - Last Filed: 08/13/22 22:23> Neuro Cranial nerves: Yes CN's II-XII intact bilaterally and Yes Equal, round and reactive pupils present <German Beyer MD - Last Filed: 08/13/22 22:23> Cognition (Neuro): normal cognition <German Beyer MD - Last Filed: 08/13/22 22:23> Motor exam (neuro): 5/5 motor strength present throughout <German Beyer MD - Last Filed: 08/13/22 22:23> Extrem Other: Patient has no significant joint effusions to both knees, there is no significant tenderness palpation over the knee joint, over the thighs or calves, she has negative Homans sign bilaterally, the right calf appears to be slightly larger than the left <German Beyer MD - Last Filed: 08/13/22 22:23> Psych Appearance: grossly normal <German Beyer MD - Last Filed: 08/13/22 22:23> Speech and movement: Normal speech and movement present <German Beyer MD - Last Filed: 08/13/22 22:23> Affect: normal affect <German Beyer MD - Last Filed: 08/13/22 22:23> Attitude: cooperative <German Beyer MD - Last Filed: 08/13/22 22:23> Course Course Course Narrative: This is an RME: Additional HPI, ROS, PE not included below will be deferred to primary provider. 57-year-old female history of opiate dependence, diabetes, hypertension, OSVALDO, asthma presenting to the emergency department complaints of weakness of bilateral lower extremity, she tells me she feels like they are not there and this has been worsening, at times associated with bilateral knee pain, rib below the tibia. Patient reports this is severe. She also reports some swelling to lower extremities. Not on blood thinners. No history of PE or DVT. Physical examination benign. Palpable pulses bilaterally to lower extremities. Negative Alexandra. Plan basic labs, inflammatory markers, D-dimer, imaging <TINO Saleem - Last Filed: 08/13/22 20:00> Medical Decision Making Medical Decision Making MDM Narrative: 57-year-old female who presents emergency department for evaluation lower back pain with bilateral lower extremity pain and weakness with the pain being worse at night. Patient has chronic pain syndrome and takes gabapentin and oxycodone 5 mg 3 times a day. The patient's oxycodone was discontinued 2 weeks prior for an unclear reason. Patient states that her urine drug screen was negative for oxycodone and she was only given a 1 week 3 weeks prior. Patient's physical examination did reveal tenderness palpation of her lumbar sacral spine as well as the paraspinal muscles in the lumbar sacral area. Patient does appear to have increased swelling of her right calf compared to the left otherwise her lower extremities appear to be normal. I did discuss with the patient that many drug screens only test for natural opiate such as morphine and heroin but do not test for synthetic opiates such as oxycodone , fentanyl, hydrocodone. Patient did have test ordered from provider triage which included CBC, CMP, CRP, ESR, D-dimer. Bilateral lower extremity venous duplex studies. X-rays of the right left knee. 2202: My interpretation of the patient's laboratory evaluation is as follows. CBC and CMP were normal. ESR was only slightly elevated at 26. CRP is only slightly elevated at 0.77. D-dimer was elevated but I did not think that the patient has any evidence for DVT or PE. Patient's x-ray of the knees are consistent with arthritic changes most likely osteoarthritis. Duplex ultrasounds of the lower extremities revealed no DVT. I did ask the patient to discuss her chronic pain with her PCP and see if the PCP will represcribed the patient's oxycodone. I will give the patient a 5 day supply of oxycodone help her with her pain and she can read discuss the need of this medication with her PCP. <German Beyer MD - Last Filed: 08/13/22 22:23> Differential Diagnosis Differential diagnosis includes was not limited to chronic pain secondary to spinal stenosis, cauda equina syndrome, central disc bulging, osteoarthritis of the knees, chronic pain syndrome, paraspinal abscess <German Beyer MD - Last Filed: 08/13/22 22:23> Lab Data [facility] Lab Attestation statement: I reviewed the patient's lab results. <German Beyer MD - Last Filed: 08/13/22 22:23> Please see MDM <German Beyer MD - Last Filed: 08/13/22 22:23> Result Diagrams: 08/13/22 20:09 08/13/22 20:09 <TINO Saleem - Last Filed: 08/13/22 20:00> Labs: Lab Results 08/13/22 08/13/22 08/13/22 Range/Units 20:09 20:09 20:09 WBC 6.6 (4.8-10.8) X10*3/uL RBC 4.02 L (4.20-5.50) X10*6/uL Hgb 11.9 L (12.0-16.0) g/dl Hct 36.0 L (37.0-47.0) % MCV 89.6 (80.0-98.0) fL MCH 29.6 (27.0-33.0) pg MCHC 33.1 (31.0-35.0) g/dl RDW 14.9 (11.0-16.0) % Plt Count 259 (160-400) X10*3/uL MPV 9.3 L (9.4-12.3) fL Immature Gran % (Auto) 0.3 (0.0-0.4) % Neut % (Auto) 56.6 (45-73) % Lymph % (Auto) 32.8 (20-40) % [place] % (Auto) 6.8 (2-11) % Eos % (Auto) 3.2 (0-4) % Baso % (Auto) 0.3 (0-2) % Lymph # (Auto) 2.2 (1.2-4.9) X10*3/uL [place] # (Auto) 0.5 (0.1-1.2) X10*3/uL Eos # (Auto) 0.2 (0.0-0.4) X10*3/uL Baso # (Auto) 0.0 (0.0-0.2) X10*3/uL Abs Immat Gran (auto) 0.02 (0.00-0.03) X10*3/uL Absolute Neuts (auto) 3.7 (2.0-8.3) x10*3/uL Absolute Nucleated RBC 0.000 (0.0-0.012) X10*3/uL Nucleated RBC % (auto) 0.0 (0.0-0.2) /100WBC ESR 26 H (0-20) MM/HR D-Dimer High Sensitivty 252 NG/ML Sodium (135-145) mmol/L Potassium (3.3-5.1) mmol/L Chloride (96-108) mmol/L Carbon Dioxide (22-29) mmol/L Anion Gap (12-20) BUN (9-16) mg/dL Creatinine (0.5-1.4) mg/dL Estim Creat Clear Calc Estimated GFR Random Glucose (60-115) mg/dL Calcium (8.4-10.2) mg/dL Total Bilirubin (0.0-1.0) mg/dL AST (5-31) U/L ALT (0-31) U/L Alkaline Phosphatase (39-117) U/L C-Reactive Protein (< or = 0.50) mg/dL Total Protein (6.5-8.0) g/dL Albumin (3.5-5.0) g/dL 08/13/22 Range/Units 20:09 WBC (4.8-10.8) X10*3/uL RBC (4.20-5.50) X10*6/uL Hgb (12.0-16.0) g/dl Hct (37.0-47.0) % MCV (80.0-98.0) fL MCH (27.0-33.0) pg MCHC (31.0-35.0) g/dl RDW (11.0-16.0) % Plt Count (160-400) X10*3/uL MPV (9.4-12.3) fL Immature Gran % (Auto) (0.0-0.4) % Neut % (Auto) (45-73) % Lymph % (Auto) (20-40) % [place] % (Auto) (2-11) % Eos % (Auto) (0-4) % Baso % (Auto) (0-2) % Lymph # (Auto) (1.2-4.9) X10*3/uL [place] # (Auto) (0.1-1.2) X10*3/uL Eos # (Auto) (0.0-0.4) X10*3/uL Baso # (Auto) (0.0-0.2) X10*3/uL Abs Immat Gran (auto) (0.00-0.03) X10*3/uL Absolute Neuts (auto) (2.0-8.3) x10*3/uL Absolute Nucleated RBC (0.0-0.012) X10*3/uL Nucleated RBC % (auto) (0.0-0.2) /100WBC ESR (0-20) MM/HR D-Dimer High Sensitivty NG/ML Sodium 139 (135-145) mmol/L Potassium 4.1 (3.3-5.1) mmol/L Chloride 100 (96-108) mmol/L Carbon Dioxide 27 (22-29) mmol/L Anion Gap 16 (12-20) BUN 9 (9-16) mg/dL Creatinine 0.76 (0.5-1.4) mg/dL Estim Creat Clear Calc 112.6 Estimated GFR > 60 Random Glucose 86 (60-115) mg/dL Calcium 9.2 (8.4-10.2) mg/dL Total Bilirubin 0.5 (0.0-1.0) mg/dL AST 22 (5-31) U/L ALT 11 (0-31) U/L Alkaline Phosphatase 107 (39-117) U/L C-Reactive Protein 0.77 H (< or = 0.50) mg/dL Total Protein 7.5 (6.5-8.0) g/dL Albumin 4.4 (3.5-5.0) g/dL <TINO Saleem - Last Filed: 08/13/22 20:00> Lab Results 08/13/22 08/13/22 08/13/22 Range/Units 20:09 20:09 20:09 WBC 6.6 (4.8-10.8) X10*3/uL RBC 4.02 L (4.20-5.50) X10*6/uL Hgb 11.9 L (12.0-16.0) g/dl Hct 36.0 L (37.0-47.0) % MCV 89.6 (80.0-98.0) fL MCH 29.6 (27.0-33.0) pg MCHC 33.1 (31.0-35.0) g/dl RDW 14.9 (11.0-16.0) % Plt Count 259 (160-400) X10*3/uL MPV 9.3 L (9.4-12.3) fL Immature Gran % (Auto) 0.3 (0.0-0.4) % Neut % (Auto) 56.6 (45-73) % Lymph % (Auto) 32.8 (20-40) % [place] % (Auto) 6.8 (2-11) % Eos % (Auto) 3.2 (0-4) % Baso % (Auto) 0.3 (0-2) % Lymph # (Auto) 2.2 (1.2-4.9) X10*3/uL [place] # (Auto) 0.5 (0.1-1.2) X10*3/uL Eos # (Auto) 0.2 (0.0-0.4) X10*3/uL Baso # (Auto) 0.0 (0.0-0.2) X10*3/uL Abs Immat Gran (auto) 0.02 (0.00-0.03) X10*3/uL Absolute Neuts (auto) 3.7 (2.0-8.3) x10*3/uL Absolute Nucleated RBC 0.000 (0.0-0.012) X10*3/uL Nucleated RBC % (auto) 0.0 (0.0-0.2) /100WBC ESR 26 H (0-20) MM/HR D-Dimer High Sensitivty 252 NG/ML Sodium (135-145) mmol/L Potassium (3.3-5.1) mmol/L Chloride (96-108) mmol/L Carbon Dioxide (22-29) mmol/L Anion Gap (12-20) BUN (9-16) mg/dL Creatinine (0.5-1.4) mg/dL Estim Creat Clear Calc Estimated GFR Random Glucose (60-115) mg/dL Calcium (8.4-10.2) mg/dL Total Bilirubin (0.0-1.0) mg/dL AST (5-31) U/L ALT (0-31) U/L Alkaline Phosphatase (39-117) U/L C-Reactive Protein (< or = 0.50) mg/dL Total Protein (6.5-8.0) g/dL Albumin (3.5-5.0) g/dL 08/13/22 Range/Units 20:09 WBC (4.8-10.8) X10*3/uL RBC (4.20-5.50) X10*6/uL Hgb (12.0-16.0) g/dl Hct (37.0-47.0) % MCV (80.0-98.0) fL MCH (27.0-33.0) pg MCHC (31.0-35.0) g/dl RDW (11.0-16.0) % Plt Count (160-400) X10*3/uL MPV (9.4-12.3) fL Immature Gran % (Auto) (0.0-0.4) % Neut % (Auto) (45-73) % Lymph % (Auto) (20-40) % [place] % (Auto) (2-11) % Eos % (Auto) (0-4) % Baso % (Auto) (0-2) % Lymph # (Auto) (1.2-4.9) X10*3/uL [place] # (Auto) (0.1-1.2) X10*3/uL Eos # (Auto) (0.0-0.4) X10*3/uL Baso # (Auto) (0.0-0.2) X10*3/uL Abs Immat Gran (auto) (0.00-0.03) X10*3/uL Absolute Neuts (auto) (2.0-8.3) x10*3/uL Absolute Nucleated RBC (0.0-0.012) X10*3/uL Nucleated RBC % (auto) (0.0-0.2) /100WBC ESR (0-20) MM/HR D-Dimer High Sensitivty NG/ML Sodium 139 (135-145) mmol/L Potassium 4.1 (3.3-5.1) mmol/L Chloride 100 (96-108) mmol/L Carbon Dioxide 27 (22-29) mmol/L Anion Gap 16 (12-20) BUN 9 (9-16) mg/dL Creatinine 0.76 (0.5-1.4) mg/dL Estim Creat Clear Calc 112.6 Estimated GFR > 60 Random Glucose 86 (60-115) mg/dL Calcium 9.2 (8.4-10.2) mg/dL Total Bilirubin 0.5 (0.0-1.0) mg/dL AST 22 (5-31) U/L ALT 11 (0-31) U/L Alkaline Phosphatase 107 (39-117) U/L C-Reactive Protein 0.77 H (< or = 0.50) mg/dL Total Protein 7.5 (6.5-8.0) g/dL Albumin 4.4 (3.5-5.0) g/dL <German Beyer MD - Last Filed: 08/13/22 22:23> Discharge Plan Discharge Clinical Impression: Localized osteoarthritis of both knees, Low back pain radiating to both legs, Spinal stenosis <TINO Saleem - Last Filed: 08/13/22 20:00> Patient Disposition: Home, Self-Care <TINO Saleem - Last Filed: 08/13/22 20:00> Instructions: Osteoarthritis (ED), Lumbar Spinal Stenosis (ED) <TINO Saleem - Last Filed: 08/13/22 20:00> Additional Instructions: Your blood work was unremarkable except for some mild elevation in your inflammatory markers The x-rays of your knees are consistent with arthritis of the knees, there are no broken bones noted on the x-ray The duplex ultrasound of your lower extremities did not reveal any blood clots in your lower legs to explain your swelling. At this time I believe that the pain in your lower legs is due to your spinal stenosis and arthritis of your knees. I want you to call your doctor and ask them why they stopped your oxycodone. Standard urine drug screens do not test for synthetic narcotic such as oxycodone. The drug screen that we use in the emergency department does not test for oxycodone either. In order to test for oxycodone it often requires a special urine drug screen. The fact that your urine drug screen was negative for oxycodone and you were still taking oxycodone suggest to me that your doctor may not be using an extended spectrum drug screen that attacks oxycodone. I am going to prescribe a 5 day supply of oxycodone for you until you can discuss this issue with your doctor. Follow-up with your doctor in 2 days. Please return to the emergency department if your symptoms get worse or if you develop any symptoms that are concerning to you. <TINO Saleem - Last Filed: 08/13/22 20:00> Prescriptions: New oxycodone 5 mg tablet 5 mg PO TID 5 Days Qty: 15 0RF Rx Instructions: Patient may request partial refill; Partial Fill upon patient request. No Action albuterol sulfate 2.5 mg /3 mL (0.083 %) solution for nebulization 2.5 mg inhalation Q4H PRN (Reason: shortness of breath or wheezing) Qty: 180 1RF albuterol sulfate [ProAir HFA] 90 mcg/actuation HFA aerosol inhaler 2 puff inhalation Q4H PRN (Reason: shortness of breath or wheezing) Qty: 1 6RF fluticasone propion-salmeterol [Wixela Inhub] 250-50 mcg/dose blister with device 1 inh inhalation BID 30 Days Qty: 1 6RF lidocaine 5 % cream 1 appl topical BID PRN (Reason: pain) Qty: 28.35 0RF ketorolac 10 mg tablet 10 mg PO TID PRN (Reason: pain) 5 Days Qty: 15 0RF Rx Instructions: Patient tolerated I a.m. Toradol in the emergency department Xolair 150 mg recon soln 375 mg subcut Q2W 28 Days Qty: 1 12RF Rx Instructions: requires multiple injection sites; do not exceed 150 mg per injection site <TINO Saleem - Last Filed: 08/13/22 20:00>
[2022-08-13 20:15] LABS: MANUAL DIFF FLAG NO
[2022-08-13 20:21] LABS: Basophils Percent Auto 0.3 % (0-2); Eosinophils Absolute Auto 0.2 X10*3/uL (0.0-0.4); Eosinophils Percent Auto 3.2 % (0-4); Hemoglobin 11.9 g/dl (12.0-16.0); Imm Gran Abs Auto 0.02 X10*3/uL (0.00-0.03); Imm Gran Pct Auto 0.3 % (0.0-0.4); Lymphocytes Absolute Auto 2.2 X10*3/uL (1.2-4.9); Lymphocytes Percent Auto 32.8 % (20-40); Mean Corpuscular HGB Conc 33.1 g/dl (31.0-35.0); Mean Corpuscular Hemoglobin 29.6 pg (27.0-33.0); Mean Corpuscular Volume 89.6 fL (80.0-98.0); Mean Platelet Volume 9.3 fL (9.4-12.3); Monocytes Absolute Auto 0.5 X10*3/uL (0.1-1.2); Monocytes Percent Auto 6.8 % (2-11); Neutrophils Absolute Auto 3.7 x10*3/uL (2.0-8.3); Neutrophils Percent Auto 56.6 % (45-73); Platelet Count 259 X10*3/uL (160-400); Red Blood Count 4.02 X10*6/uL (4.20-5.50); Red Cell Distribution Width 14.9 % (11.0-16.0); White Blood Count 6.6 X10*3/uL (4.8-10.8)
[2022-08-13 20:34] LABS: D Dimer High Sensitivity 252 NG/ML
[2022-08-13 20:35] LABS: Alanine Aminotransferase 11 U/L (0-31); Albumin Level 4.4 g/dL (3.5-5.0); Alkaline Phosphatase 107 U/L (39-117); Anion Gap 16 (12-20); Aspartate Amino Transferase 22 U/L (5-31); Bilirubin Total 0.5 mg/dL (0.0-1.0); Blood Urea Nitrogen 9 mg/dL (9-16); C Reactive Protein 0.77 mg/dL (< or = 0.50); Calcium 9.2 mg/dL (8.4-10.2); Carbon Dioxide 27 mmol/L (22-29); Chloride 100 mmol/L (96-108); Creatinine Clr Calc Pharmacy 112.6; Estimated Glomerular Filt Rate > 60; Glucose Random 86 mg/dL (60-115); Potassium 4.1 mmol/L (3.3-5.1); Sodium 139 mmol/L (135-145); Total Protein 7.5 g/dL (6.5-8.0)
[2022-08-13 21:09] LABS: Erythrocyte Sedimentation Rate 26 MM/HR (0-20)
[2022-08-13] MEDS: oxyCODONE HCl Immed Release 5 MG TABLET 10 MG PO (21:58)
[2022-08-13 23:06] VITALS: BP 172/94; PULSE 70; RESP 16; TEMP 37; O2SAT 98
== END 2022-08-13 23:16 | disposition home or self-care (01) ==
PROVIDERS: Physician Assistant; Emergency Provider Emergency Medicine Emergency Medical Services; PCP General Practice
DX: M17.0 Bilateral primary osteoarthritis of knee (principal); M48.00 Spinal stenosis, site unspecified; M25.462 Effusion, left knee; M25.461 Effusion, right knee; R26.2 Difficulty in walking, not elsewhere classified; M54.50 Low back pain, unspecified; Z79.899 Other long term (current) drug therapy
CPT/HCPCS: 36415; 73564; 80053; 85025; 85379; 85652; 86140; 93970; 99283; 99284

== ENCOUNTER 2023-04-29 11:15 | Outpatient (REF) | payer MEDICAID, SELFPAY ==
[2023-04-29 14:22] LABS: Alanine Aminotransferase 11 U/L (0-31); Albumin Level 4.4 g/dL (3.5-5.0); Alkaline Phosphatase 98 U/L (39-117); Anion Gap 14 (12-20); Aspartate Amino Transferase 24 U/L (5-31); Bilirubin Total 0.6 mg/dL (0.0-1.0); Blood Urea Nitrogen 13 mg/dL (9-16); Calcium 10.1 mg/dL (8.4-10.2); Carbon Dioxide 30 mmol/L (22-29); Chloride 101 mmol/L (96-108); Cholesterol 183 mg/dL (<200); Estimated Glomerular Filt Rate 56; Glucose Random 82 mg/dL (60-115); HDL Cholesterol 37 mg/dL (>40); LDL Cholesterol Calculated 109 mg/dL (<100); Potassium 4.5 mmol/L (3.3-5.1); Sodium 140 mmol/L (135-145); Total Protein 8.1 g/dL (6.5-8.0); Triglycerides 188 mg/dL (<150)
[2023-04-29 14:37] LABS: TSH reflex Free T4 0.96 uIU/mL (0.32-4.0)
== END 2023-04-29 11:16 | disposition home or self-care (01) ==
LOC: HO.HHCL 11:15
PROVIDERS: Visit Provider General Practice
DX: E11.69 Type 2 diabetes mellitus with other specified complication (principal); E66.9 Obesity, unspecified
CPT/HCPCS: 36415; 80053; 80061; 84443

== ENCOUNTER 2023-06-25 21:05 | Emergency (ER) | payer MEDICAID, SELFPAY ==
--- NOTE | 2023-06-25 | ECG_ITS ---
Test Reason : COUGH/CP Blood Pressure : / mmHG Vent. Rate : 079 BPM Atrial Rate : 079 BPM P-R Int : 140 ms QRS Dur : 092 ms QT Int : 372 ms P-R-T Axes : 003 -02 031 degrees QTc Int : 426 ms Normal sinus rhythm Normal ECG When compared with ECG of 06-FEB-2002 17:47, No significant change was found Referred By: Generic ED Physician Electronically Signed By:CEDRIC MARIN MD
--- NOTE | ~2023-06-25 | XR_ITS ---
EXAMINATION: XR CHEST CLINICAL INFORMATION: Shortness of breath. COMPARISON: Prior chest radiographs, most recently 08/01/2020. TECHNIQUE: Frontal view of the chest was obtained. FINDINGS: No significant abnormality is noted involving the heart, lungs, mediastinum, bony thorax or soft tissues. XR/XR chest 1V IMPRESSION: Unremarkable examination.
[2023-06-25 21:12] VITALS: BP 161/88; PULSE 87; RESP 18; TEMP 36.2; O2SAT 95; BMI 36.7
--- NOTE | 2023-06-25 21:32 | MHC.EDTECH ---
Patient brought into triage area,EKG taken per order and signed by provider, covid,and flu swabs obtained and sent to lab.
[2023-06-25 21:56] LABS: COVID-19 Test Negative (Negative); IDNOW Serial# 08D9AD1C; IDNOW Serial# 152EDE1D; Influenza A Negative (Negative); Influenza B2 Negative (Negative)
[2023-06-25] MEDS: predniSONE 20 MG TABLET 40 MG PO (22:52)
--- NOTE | 2023-06-25 22:57 | ED_ITS ---
HPI - URI/Sore Throat General Chief Complaint: Upper Respiratory Symptoms Stated Complaint: back pain Time Seen by Provider: 06/25/23 22:14 Source: patient Mode of arrival: ambulatory Limitations: no limitations History of Present Illness HPI Narrative: Patient is a 58-year-old female who presents emergency department for evaluation of upper respiratory symptoms, she reports 1 week with chest congestion, productive cough, shortness of breath that was unrelieved with her nebulizer/albuterol inhalers. Now she is having pain to the left upper abdomen that radiates into her back, reproducible to cough, deep inspiration and movement. Denies associated nausea, vomiting. Denies fevers, chills, headache, dizziness, neck pain, neck stiffness, sore throat, nausea, vomiting, numbness or tingling of the extremities, genitourinary symptoms. Related Data Previous Rx's Medication Instructions Recorded omalizumab 150 mg subcutaneous 375 mg subcut Q2W 28 days #1 ea 10/03/20 solution (Xolair) albuterol sulfate 2.5 mg/3 mL 2.5 mg (3 mL) inhalation Q4H PRN 12/07/20 (0.083 %) solution for nebulization shortness of breath or wheezing #180 mL albuterol sulfate 90 mcg/actuation 2 puff inhalation Q4H PRN 06/16/21 aerosol inhaler (ProAir HFA) shortness of breath or wheezing #1 ea fluticasone 250 mcg-salmeterol 50 1 inh inhalation BID 30 days #1 ea 01/24/22 mcg/dose blistr powdr for inhalation (Wixela Inhub) ketorolac 10 mg tablet 10 mg PO TID PRN pain 5 days #15 01/28/22 tabs lidocaine 5 % topical cream 1 appl topical BID PRN pain #28.35 01/28/22 grams oxycodone 5 mg tablet 5 mg PO TID 5 days #15 tabs 08/13/22 azithromycin 250 mg tablet See Rx Instructions PO .COMPLEX #6 06/26/23 tabs prednisone 20 mg tablet 40 mg (2 x 20 mg) PO DAILY 4 days 06/26/23 #8 tabs Allergies Allergy/AdvReac Type Severity Reaction Status Date / Time Iodinated Contrast Media Allergy Unknown UNKNOWN Verified 08/30/20 13:14 [IV Dye, Iodine Containing] morphine Allergy Rash Verified 01/28/22 21:55 paroxetine [From Paxil] Allergy Depression Verified 08/30/20 13:14 methocarbamol [From ROBAXIN] AdvReac Unknown JAUNDICE Verified 08/30/20 13:14 Review of Systems Review of Systems: Yes all other systems are reviewed and are negative [facility] Past Medical History Attestation statement: The following information was validated with the patient. Source: old records reviewed Medical History Diabetes HTN (hypertension) Arthritis Spinal stenosis Social History Social History Advance Directives: No Advance Directives Information Provided: No Physical Exam Vital Signs: Vital Signs: Last Vital Signs Temp 98.3 F 06/25/23 23:52 Pulse 79 06/26/23 00:18 Resp 18 06/26/23 00:18 BP 161/94 H 06/25/23 23:52 Pulse Ox 94 06/26/23 00:08 O2 Del Method Room Air 06/26/23 00:08 BMI result Body Mass Index 36.7 Appearance: Alert.?Oriented to person, place and time. No acute distress.?Normal affect. Eyes: Pupils equal, round and reactive to light.? ENT: TM normal bilaterally. Pharynx normal.?? Neck: Normal inspection.? Neck supple.??No cervical adenopathy CVS: Heart sounds normal. Normal heart rate and rhythm.? Pulses normal.?? Respiratory: No respiratory distress.? Lung sounds bilaterally, expiratory wheezing, diminished bases Abdomen: Soft and non-tender. Normoactive bowel sounds. Skin: Skin warm and dry.? Normal skin color.? ? Extremities: No lower extremity edema.? Neuro: Moves all extremities spontaneously. Sensation intact bilaterally. No motor deficits. Ambulates with normal steady gait. Course Reevaluation(s) Reevaluation #1: Increased aeration after nebulizer expiratory wheezing persists, she continues to report feeling significantly short of breath even with minimal exertion, ambulatory O2 trial with O2 saturation remaining above 93% on room air. She reports persistent pain, to her back, reports a history of spinal stenosis for which she is taking gabapentin. Will trial another nebulizer at this time Time: 00:13 Reevaluation #2: Increased aeration after 2nd nebulizer. She reports notable improvement. When asked, she states that she would like to be discharged home tonight, she does not feel as though she requires admission. She has her albuterol nebulizer solution at home and inhaler. I will send a short course of prednisone to the pharmacy in addition to Rx for azithromycin. Strict return precautions were discussed. Stable for discharge. Ambulatory with a steady gait. Time: 00:46 Medications Administered Discontinued Medications Generic Name Dose Route Start Last Admin Trade Name Brody PRN Reason Stop Dose Admin Albuterol Sulfate 2.5 mg/ 5 mg 06/25/23 22:53 06/25/23 22:58 Albuterol Sulfate 2.5 mg INHALE 06/25/23 22:54 5 mg ONCE ONE Administration Levalbuterol HCl 2.5 mg/ 0 mg 06/26/23 00:07 06/26/23 00:16 Ipratropium [place] 0.5 mg INHALE 06/26/23 00:08 5 dose ONCE ONE Administration Prednisone 40 mg 06/25/23 22:40 06/25/23 22:52 Prednisone 20 Mg Tablet PO 06/25/23 22:41 40 mg ONCE ONE Administration Medical Decision Making Medical Decision Making MDM Narrative: Patient is a old female with past medical history of diabetes, hypertension, arthritis, asthma, presenting for evaluation of upper respiratory symptoms. COVID-19 testing negative. Influenza testing negative. At this time history and physical exam not consistent with ACS/PE. EKG obtained reveals a normal sinus rhythm with ventricular rate of 79, no ST elevation/ST depression or acute ischemic findings. Wells negative. Chest x-ray without evidence of acute cardiopulmonary abnormality or consolidation/infiltrate to suggest pneumonia. Well-appearing, nontoxic, afebrile, no tachycardia or tachypnea/hypoxia. Received prednisone in the emergency department. Speaking clear full sentences, ambulatory with steady gait. Suspect bronchitis with acute asthma exacerbation. Discussed conservative treatment including rest, hydration, Tylenol/ibuprofen as needed for fever and body aches, saline nasal spray, humidifier, [id number] cold medication. Advised to follow-up with primary care provider as needed, discussed reasons to return back to the emergency de partment. All questions were answered. Patient discharged home in stable condition. Differential Diagnosis Differential Diagnoses: The differential diagnosis associated with the presentation includes ( See narrative above) Admission/Observation Consideration of admission/observation: Escalation of care including admission/observation considered ( see narrative above) Lab Data MDM Lab Attestation statement: I reviewed the patient's lab results. ( see narrative above) Labs: Lab Results 06/25/23 Range/Units 21:32 COVID-19 (DOC) Negative (Negative) COVID-19 Clin Com See Note Influenza Type A ([place]) Negative (Negative) Influenza Type B ([place]) Negative (Negative) Influenza A & B Note See Note Independent Interpretation I performed an independent interpretation of an: EKG (See narrative above) and Plain X-Ray (I personally interpreted chest x-ray and agree with radiologist impression) Radiology Impression Discussion of test interpretation with radiology: I have reviewed the radiologist's reading. Radiologist Impression: XR/XR chest 1V IMPRESSION: Unremarkable examination. Independent Historian Clinical information obtained from an independent historian. History obtained from or confirmed by: Friend (Present who confirms history) External Record Review External record reviewed: Outpatient record Prescription Management I considered prescription management with: Pain Medication ( acetaminophen/ibuprofen) and Other Critical Care Time Critical Care Time Critical Care Time: Yes Total Critical Care Time: 45 Attestation: I personally attest to this critical care time spent taking care of the patient exclusive of all other billable procedures was approximately 45 minutes in cluding initial evaluation of patient, ordering tests, x-ray interpretation, EKG interpretation, medical consultation, documentation, re-evaluation. Discharge Plan Discharge Clinical Impression: Acute bronchitis with asthma with acute exacerbation Patient Disposition: Home, Self-Care Instructions: Asthma (ED), Acute Bronchitis (ED) Additional Instructions: Return back to emergency department any new or worsening symptoms or concerns. Contact your primary care provider and arrange for a follow-up visit. Prescriptions: New prednisone 20 mg tablet 40 mg PO DAILY 4 Days Qty: 8 0RF azithromycin 250 mg tablet See Rx Instructions .ROUTE .COMPLEX Qty: 6 0RF Rx Instructions: For 250 mg dose pack: take 500 mg today (day 1), then 250 mg for 4 days (days 2-5) No Action albuterol sulfate 2.5 mg /3 mL (0.083 %) solution for nebulization 2.5 mg inhalation Q4H PRN (Reason: shortness of breath or wheezing) Qty: 180 1RF albuterol sulfate [ProAir HFA] 90 mcg/actuation HFA aerosol inhaler 2 puff inhalation Q4H PRN (Reason: shortness of breath or wheezing) Qty: 1 6RF fluticasone propion-salmeterol [Wixela Inhub] 250-50 mcg/dose blister with device 1 inh inhalation BID 30 Days Qty: 1 6RF oxycodone 5 mg tablet 5 mg PO TID 5 Days Qty: 15 0RF Rx Instructions: Patient may request partial refill; Partial Fill upon patient request. lidocaine 5 % cream 1 appl topical BID PRN (Reason: pain) Qty: 28.35 0RF ketorolac 10 mg tablet 10 mg PO TID PRN (Reason: pain) 5 Days Qty: 15 0RF Rx Instructions: Patient tolerated I a.m. Toradol in the emergency department Xolair 150 mg recon soln 375 mg subcut Q2W 28 Days Qty: 1 12RF Rx Instructions: requires multiple injection sites; do not exceed 150 mg per injection site Referrals: Krys Myers MD [Primary Care Provider] - Interventions: ED Discharge Assessment Last Done: 06/26/23 01:15 Discharge Date/Time: 06/26/23 01:16
[2023-06-25] MEDS: Albuterol Sulfate 2.5 MG, Albuterol Sulfate (0.083%) 2.5 MG 5 MG INHALE (22:58)
[2023-06-25 23:00] VITALS: PULSE 87; RESP 18; O2SAT 95
[2023-06-25 23:52] VITALS: BP 161/94; PULSE 79; RESP 20; TEMP 36.8; O2SAT 97
--- NOTE | 2023-06-26 00:05 | MHC.EDTECH ---
Patient ambulated with a walking o2 sat 93 to 94% ,patient couldn't ambulated that far due to pain provider at bedside and is aware.
--- NOTE | 2023-06-26 00:07 | MHC.EDTECH ---
Late Entry this tech assumed care of patient at 2330, hourly rounds and vitals completed. Call blunt in reach and friend at bedside
[2023-06-26 00:08] VITALS: O2SAT 94
[2023-06-26] MEDS: levalbuterol HCL 2.5 MG, Ipratropium Bromide 0.5 MG INHALE (00:16)
[2023-06-26 00:18] VITALS: PULSE 79; RESP 18; O2SAT 97
== END 2023-06-26 01:16 | disposition home or self-care (01) ==
PROVIDERS: Emergency Provider Emergency Medicine; PCP General Practice
DX: J45.901 Unspecified asthma with (acute) exacerbation (principal); R05.9 Cough, unspecified; R07.89 Other chest pain; M54.50 Low back pain, unspecified; Z79.899 Other long term (current) drug therapy; Z11.52 Encounter for screening for COVID-19
CPT/HCPCS: 71045; 87502; 87635; 93005; 94640; 99284

== ENCOUNTER → 2023-06-25 21:29 | Outpatient (BNV) | payer MEDICAID, SELFPAY | PROVIDERS: Emergency Provider Emergency Medicine; PCP General Practice; Visit Provider Internal Medicine Cardiovascular Disease | DX: R07.9 Chest pain, unspecified (principal) | CPT/HCPCS: 93010 ==

== ENCOUNTER 2023-09-02 10:14 | Outpatient (REF) | payer MEDICAID, SELFPAY ==
--- NOTE | ~2023-09-02 | XR_ITS ---
EXAMINATION: XR FOOT, RIGHT CLINICAL INFORMATION: Right foot pain following injury 2 weeks ago. COMPARISON: None available. TECHNIQUE: AP, lateral, and oblique views of the right foot. FINDINGS: No displaced fracture. No dislocation. Tiny marginal osteophytes at the first metatarsophalangeal joint. Plantar and dorsal calcaneal enthesophytes. No concerning lytic or blastic osseous lesion. XR/XR foot RT min 3V IMPRESSION: 1. No acute fracture or dislocation. 2. Mild first metatarsophalangeal degenerative arthritis. 3. Plantar and dorsal calcaneal spurs.
== END 2023-09-02 10:15 | disposition home or self-care (01) ==
LOC: HO.HHCX 10:14
PROVIDERS: Visit Provider Student in an Organized Health Care Education/Training Program
DX: M79.671 Pain in right foot (principal)
CPT/HCPCS: 73630

== ENCOUNTER 2023-11-19 10:50 | Outpatient (REF) | payer MEDICAID, SELFPAY ==
--- NOTE | ~2023-11-19 | XR_ITS ---
EXAMINATION: XR ABDOMEN KUB CLINICAL INDICATION: Left flank pain for 3 days, did upright images horizontal due to patient body habitus. Best possible images. COMPARISON: CT abdomen and pelvis of 01/28/2022. TECHNIQUE: 5 views, supine and upright of the abdomen. FINDINGS: Levoscoliosis of the lumbar spine with multilevel degenerative changes. No free intraperitoneal air appreciated. Nonobstructive bowel gas pattern. Moderate amount of stool in the colon. Corticated ossicle redemonstrated along the inferior aspect of the left sacroiliac joint. XR/XR KUB IMPRESSION: Nonobstructive bowel gas pattern. Moderate amount of stool in the colon. This study was presented today November 19, 2023 for interpretation. Stat results provided at this time as requested by referring provider.
== END 2023-11-19 10:51 | disposition home or self-care (01) ==
LOC: HO.HHCX 10:50
PROVIDERS: Visit Provider Student in an Organized Health Care Education/Training Program
DX: R10.9 Unspecified abdominal pain (principal)
CPT/HCPCS: 74018

== ENCOUNTER 2023-11-29 12:32 | Outpatient (REF) | payer MEDICAID, SELFPAY ==
[2023-11-29 13:31] LABS: Estimated Average Glucose 111 mg/dL; Hemoglobin A1c % 5.5 % (<6.0)
[2023-11-29 14:03] LABS: Creatinine Urine 92.25 mg/dL; Microalbumin Urine < 5.0 mg/L
[2023-11-29 16:30] LABS: TSH reflex Free T4 0.64 uIU/mL (0.32-4.0)
[2023-11-29 16:32] LABS: Alanine Aminotransferase 12 U/L (0-31); Albumin Level 4.2 g/dL (3.5-5.0); Alkaline Phosphatase 96 U/L (39-117); Anion Gap 12 (12-20); Aspartate Amino Transferase 22 U/L (5-31); Bilirubin Total 0.4 mg/dL (0.0-1.0); Blood Urea Nitrogen 14 mg/dL (9-16); Calcium 9.7 mg/dL (8.4-10.2); Carbon Dioxide 30 mmol/L (22-29); Chloride 104 mmol/L (96-108); Estimated Glomerular Filt Rate > 60; Glucose Random 56 mg/dL (60-115); Potassium 3.9 mmol/L (3.3-5.1); Sodium 142 mmol/L (135-145); Total Protein 7.5 g/dL (6.5-8.0)
== END 2023-11-29 12:33 | disposition home or self-care (01) ==
LOC: HO.HHCL 12:32
PROVIDERS: Visit Provider General Practice
DX: I10 Essential (primary) hypertension (principal)
CPT/HCPCS: 36415; 80053; 82043; 82570; 83036; 84443

== ENCOUNTER 2023-12-16 12:39 | Outpatient (REF) | payer MEDICAID, SELFPAY ==
--- NOTE | ~2023-12-16 | MR_ITS ---
EXAMINATION: MR ANKLE WITHOUT CONTRAST, RIGHT CLINICAL INFORMATION: Swelling. Tenderness. Bruising at the right medial malleolus. COMPARISON: None available. TECHNIQUE: MRI of the ankle was performed using routine sequences on a high-field scanner. FINDINGS: ACHILLES TENDON: Normal. OTHER TENDONS: Kucyjfth-dp-ewanil tendinosis of the posterior tibialis at the navicular insertion with mild associated underlying edema signal within the navicular. No discrete tears are identified. No tenosynovitis. Medial flexor tendons are otherwise unremarkable. Intact peroneal and extensor tendons. LIGAMENTS: Anterior talofibular ligament is mildly thickened, likely the result of an old sprain. Osseous prominence at the anterior tibiofibular ligament is likely the result of an old tear with osseous hypertrophy. Calcaneofibular, posterior talofibular, and posterior tibiofibular ligaments are intact. Deltoid ligament is normal. Spring ligament is intact, though there is significant adjacent edema signal near the superomedial band. BONE AND ARTICULAR CARTILAGE: There is chondral fissuring at the medial margin of the talar dome with mild underlying subchondral marrow edema signal. Additional mild chondral fissuring is present at the lateral malleolus and lateral margin of the talus small marginal osteophytes. JOINT FLUID AND SOFT TISSUES: No joint effusion. Mild surrounding edema signal medially at the midfoot adjacent to the posterior tibialis tendon. Moderate fatty atrophy of the abductor digiti minimi. PLANTAR FASCIA: Intact. SINUS TARSI AND TARSAL TUNNEL: Normal. MR/MR ankle RT wo con IMPRESSION: 1. Bsenxhno-rn-zxysva insertional tendinosis of the posterior tibialis tendon. No tears. 2. Mild tibiotalar osteoarthritis with chondral fissuring at the medial margin of the talar dome. 3. Old sprains of the anterior talofibular and anterior tibiofibular ligaments. 4. Fatty atrophy of the abductor digiti minimi. 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
== END 2023-12-16 12:40 | disposition home or self-care (01) ==
LOC: HO.MRI 12:39
PROVIDERS: PCP General Practice; Visit Provider General Practice
DX: M25.571 Pain in right ankle and joints of right foot (principal)
CPT/HCPCS: 73721

== ENCOUNTER 2024-02-12 20:11 | Emergency (ER) | payer OTHER, MEDICAID, SELFPAY ==
--- NOTE | 2024-02-12 21:14 | ED_ITS ---
HPI - Psych General Chief Complaint: Psychiatric Symptoms Stated Complaint: Crisis Time Seen by Provider: 02/12/24 20:40 Source: patient Mode of arrival: ambulatory History of Present Illness HPI Narrative: Patient is a 58-year-old female who presents to the emergency department for evaluation. 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 She lives alone, states she has been compliant with her medications including her Seroquel but her depression continues to worsen. She endorses having associated anxiety, admits to having auditory hallucinations but not command hallucinations. Denies suicidal or homicidal ideations. Denies recreational drug or alcohol usage. Related Data Previous Rx's ?Medication ?Instructions ?Recorded omalizumab 150 mg subcutaneous 375 mg subcut Q2W 28 days #1 ea 10/03/20 solution (Xolair) albuterol sulfate 2.5 mg/3 mL 2.5 mg (3 mL) inhalation Q4H PRN 12/07/20 (0.083 %) solution for nebulization shortness of breath or wheezing #180 mL albuterol sulfate 90 mcg/actuation 2 puff inhalation Q4H PRN 06/16/21 aerosol inhaler (ProAir HFA) shortness of breath or wheezing #1 ea fluticasone 250 mcg-salmeterol 50 1 inh inhalation BID 30 days #1 ea 01/24/22 mcg/dose blistr powdr for inhalation (Wixela Inhub) ketorolac 10 mg tablet 10 mg PO TID PRN pain 5 days #15 01/28/22 tabs lidocaine 5 % topical cream 1 appl topical BID PRN pain #28.35 01/28/22 grams oxycodone 5 mg tablet 5 mg PO TID 5 days #15 tabs 08/13/22 azithromycin 250 mg tablet See Rx Instructions PO .COMPLEX #6 06/26/23 tabs prednisone 20 mg tablet 40 mg (2 x 20 mg) PO DAILY 4 days 06/26/23 #8 tabs Allergies Allergy/AdvReac Type Severity Reaction Status Date / Time Iodinated Contrast Media Allergy Unknown UNKNOWN Verified 02/12/24 21:24 [IV Dye, Iodine Containing] morphine Allergy Rash Verified 02/12/24 21:24 paroxetine [From Paxil] Allergy Depression Verified 02/12/24 21:24 methocarbamol [From ROBAXIN] AdvReac Unknown JAUNDICE Verified 02/12/24 21:24 Review of Systems 2 Review of Systems: Yes all other systems are reviewed and are negative [facility] Past Medical History Attestation statement: The following information was validated with the patient. Source: old records reviewed Medical History Diabetes HTN (hypertension) Arthritis Spinal stenosis Social History Social History Advance Directives: No Advance Directives Information Provided: No Do you have a plan to hurt others: No Plan Physical Exam 2 Vital Signs: Vital Signs: Last Vital Signs Temp 97.8 F 02/13/24 00:21 Pulse 76 02/13/24 00:21 Resp 16 02/13/24 00:21 BP 162/95 H 02/13/24 00:21 Pulse Ox 99 02/13/24 00:21 O2 Del Method Room Air 02/12/24 21:16 BMI result Body Mass Index 29.4 Appearance: Alert.?Oriented to person, place and time. No acute distress.?Normal affect. Eyes: Pupils equal, round and reactive to light.? ENT: Pharynx normal.?? Neck: Normal inspection.? Neck supple.?? CVS: Heart sounds normal. Normal heart rate and rhythm.? Pulses normal.?? Respiratory: No respiratory distress.? Lung sounds clear to auscultation bilaterally?? Abdomen: Soft and non-tender. Normoactive bowel sounds. Skin: Skin warm and dry.? Normal skin color.? Extremities: No lower extremity edema.? No calf ttp? Neuro: Moves all extremities spontaneously. Sensation intact bilaterally. CN II- XII intact. No focal neuro deficits. Ambulates with normal steady gait. Medications Administered Discontinued Medications Generic Name Dose Route Start Last Admin Trade Name Freq PRN Reason Stop Dose Admin Al Hydroxide/Mg Hydroxide 30 ml 02/12/24 23:53 02/12/24 23:55 Magnesium Hydrox/Alum Hydrox 30 Ml Oral.Susp PO 02/12/24 23:54 30 ml ONCE ONE Administration Medical Decision Making Medical Decision Making MDM Narrative: Patient is a 58-year-old female past medical history, diabetes, OSVALDO, asthma, spinal stenosis, chronic pain presenting to emergency department reports of increased depression as per HPI. Denies SI/HI denies recreational drug or alcohol usage. She is calm and cooperative. Endorsing chronic pain to the bilateral feet otherwise no acute physical complaints. Examination bilateral feet without acute wounds lesions erythema or obvious deformity. Will obtain labs for medical clearance, and refer to care team for safe disposition planning. Differential Diagnosis Differential Diagnoses: The differential diagnosis associated with the presentation includes (Depression, anxiety, polysubstance, chronic pain) Admission/Observation Consideration of admission/observation: Escalation of care including admission/observation considered Patient is being observed in the Emergency Department for depression and anxiety. Observation time was started at 21:52 on 02/12/2024..?The patient is currently stable and non-toxic appearing. Observation is being initiated in the Emergency Department to allow time to help differentiate if the patient's depression and anxiety is due to Substance Induced Mood Disorder and Anxiety versus Major Depressive Disorder, Bipolar Dana, Bipolar Depression, and Schizophrenia. The patient will receive frequent psychiatric assessments from the provider as well as from nursing staff. The patient will also be monitored for the need of PRN agitation medications such as Haldol, Ativan, and Benadryl. Consult Healthcare Provider Management of the patient was discussed with: Behavioral Health Provider Lab Data MDM Lab Attestation statement: I reviewed the patient's lab results. CBC is without leukocytosis anemia or thrombocytopenia. No electrolyte derangement. No BLAINE.. LFTs and lipase within normal range. Urinalysis without evidence of infection. HCG negative. Toxicology negative. 02/12/24 22:19 02/12/24 22:19 Labs: Lab Results 02/12/24 02/12/24 Range/Units 21:51 22:19 WBC 7.2 (4.8-10.8) X10*3/uL RBC 3.95 L (4.20-5.50) X10*6/uL Hgb 12.0 (12.0-16.0) g/dl Hct 35.3 L (37.0-47.0) % MCV 89.4 (80.0-98.0) fL MCH 30.4 (27.0-33.0) pg MCHC 34.0 (31.0-35.0) g/dl RDW 14.7 (11.0-16.0) % Plt Count 275 (160-400) X10*3/uL MPV 9.1 L (9.4-12.3) fL Immature Gran % (Auto) 0.3 (0.0-0.4) % Neut % (Auto) 57.0 (45-73) % Lymph % (Auto) 31.5 (20-40) % [place] % (Auto) 8.9 (2-11) % Eos % (Auto) 1.9 (0-4) % Baso % (Auto) 0.4 (0-2) % Lymph # (Auto) 2.3 (1.2-4.9) X10*3/uL [place] # (Auto) 0.6 (0.1-1.2) X10*3/uL Eos # (Auto) 0.1 (0.0-0.4) X10*3/uL Baso # (Auto) 0.0 (0.0-0.2) X10*3/uL Abs Immat Gran (auto) 0.02 (0.00-0.03) X10*3/uL Absolute Neuts (auto) 4.1 (2.0-8.3) x10*3/uL Absolute Nucleated RBC 0.000 (0.0-0.012) X10*3/uL Nucleated RBC % (auto) 0.0 (0.0-0.2) /100WBC Sodium 138 (135-145) mmol/L Potassium 4.3 (3.3-5.1) mmol/L Chloride 102 (96-108) mmol/L Carbon Dioxide 28 (22-29) mmol/L Anion Gap 12 (12-20) BUN 8 L (9-16) mg/dL Creatinine 0.85 (0.5-1.4) mg/dL Estim Creat Clear Calc 90.2 Estimated GFR > 60 Random Glucose 117 H (60-115) mg/dL Calcium 9.6 (8.4-10.2) mg/dL Magnesium 1.7 (1.6-2.6) mg/dL Total Bilirubin 0.3 (0.0-1.0) mg/dL AST 20 (5-31) U/L ALT 12 (0-31) U/L Alkaline Phosphatase 109 (39-117) U/L Total Protein 7.8 (6.5-8.0) g/dL Albumin 4.3 (3.5-5.0) g/dL Urine Color Yellow Urine Appearance Clear Urine pH 6.0 (5.0-9.0) Ur Specific [place] 1.020 (1.005-1.025) Urine Protein Negative (Neg-Trace) mg/dL Urine Glucose (UA) Negative (Negative) mg/dL Urine Ketones Trace (Negative) mg/dL Urine Blood Negative (Negative) Urine Nitrite Negative (Negative) Ur Leukocyte Esterase Small (1+) H (Negative) Urine RBC 0-2 (0-2) /HPF Urine WBC 0-5 (0-5) /HPF Ur Squamous Epith Cells 6-10 (0-2) /HPF Urine Bacteria None Seen (None Seen) Hyaline Casts 0-2 (0-2) /LPF Urine Test NEGATIVE (NEGATIVE) Urine Opiates Screen Not Detected (Not Detect) Ur Buprenorphine Scrn Not Detected (Not Detect) ng/mL Ur Oxycodone Screen Not Detected (Not Detect) ng/mL Urine Methadone Screen Not Detected (Not Detect) ng/mL Urine Fentanyl Screen Not Detected (Not Detect) Ur Barbiturates Screen Not Detected (Not Detect) Ur Phencyclidine Scrn Not Detected (Not Detect) Ur Amphetamines Screen Not Detected (Not Detect) U Benzodiazepines Scrn Not Detected (Not Detect) Urine Cocaine Screen Not Detected (Not Detect) U Marijuana (THC) Screen Not Detected (Not Detect) Ethyl Alcohol < 10 mg/dL External Record Review External record reviewed: Outpatient record Discharge Plan Discharge Clinical Impression: Depression Patient Disposition: Still a Patient Prescriptions: No Action albuterol sulfate 2.5 mg /3 mL (0.083 %) solution for nebulization 2.5 mg inhalation Q4H PRN (Reason: shortness of breath or wheezing) Qty: 180 1RF albuterol sulfate [ProAir HFA] 90 mcg/actuation HFA aerosol inhaler 2 puff inhalation Q4H PRN (Reason: shortness of breath or wheezing) Qty: 1 6RF fluticasone propion-salmeterol [Wixela Inhub] 250-50 mcg/dose blister with device 1 inh inhalation BID 30 Days Qty: 1 6RF oxycodone 5 mg tablet 5 mg PO TID 5 Days Qty: 15 0RF Rx Instructions: Patient may request partial refill; Partial Fill upon patient request. lidocaine 5 % cream 1 appl topical BID PRN (Reason: pain) Qty: 28.35 0RF ketorolac 10 mg tablet 10 mg PO TID PRN (Reason: pain) 5 Days Qty: 15 0RF Rx Instructions: Patient tolerated I a.m. Toradol in the emergency department prednisone 20 mg tablet 40 mg PO DAILY 4 Days Qty: 8 0RF azithromycin 250 mg tablet See Rx Instructions .ROUTE .COMPLEX Qty: 6 0RF Rx Instructions: For 250 mg dose pack: take 500 mg today (day 1), then 250 mg for 4 days (days 2-5) Xolair 150 mg recon soln 375 mg subcut Q2W 28 Days Qty: 1 12RF Rx Instructions: requires multiple injection sites; do not exceed 150 mg per injection site Interventions: Clinch-Suicide Risk Severity Scale Last Done: 02/12/24 23:51 Print Language: Luxembourger
[2024-02-12 21:16] VITALS: BP 190/111; PULSE 99; RESP 16; TEMP 36.6; O2SAT 99; BMI 29.4
[2024-02-12 22:24] LABS: MANUAL DIFF FLAG NO
[2024-02-12 22:26] LABS: Appearance Urine Clear; Color Urine Yellow; Glucose Urine UA Negative (Negative); Leukocyte Esterase Urine Small (1+) (Negative); Nitrite Urine Negative (Negative); UMIC TRIGGER UACC YES; Urine Blood Negative (Negative); Urine Ketones Trace mg/dL (Negative); Urine Protein Negative (Neg-Trace)
[2024-02-12 22:26] LABS: UPreg QC Valid YES; Urine Pregnancy NEGATIVE (NEGATIVE)
[2024-02-12 22:28] LABS: Basophils Percent Auto 0.4 % (0-2); Eosinophils Absolute Auto 0.1 X10*3/uL (0.0-0.4); Eosinophils Percent Auto 1.9 % (0-4); Hematocrit 35.3 % (37.0-47.0); Imm Gran Abs Auto 0.02 X10*3/uL (0.00-0.03); Imm Gran Pct Auto 0.3 % (0.0-0.4); Lymphocytes Absolute Auto 2.3 X10*3/uL (1.2-4.9); Lymphocytes Percent Auto 31.5 % (20-40); Mean Corpuscular Hemoglobin 30.4 pg (27.0-33.0); Mean Corpuscular Volume 89.4 fL (80.0-98.0); Mean Platelet Volume 9.1 fL (9.4-12.3); Monocytes Absolute Auto 0.6 X10*3/uL (0.1-1.2); Monocytes Percent Auto 8.9 % (2-11); Neutrophils Absolute Auto 4.1 x10*3/uL (2.0-8.3); Platelet Count 275 X10*3/uL (160-400); Red Blood Count 3.95 X10*6/uL (4.20-5.50); Red Cell Distribution Width 14.7 % (11.0-16.0); White Blood Count 7.2 X10*3/uL (4.8-10.8)
[2024-02-12 22:40] LABS: Ethanol < 10 mg/dL
[2024-02-12 22:41] LABS: Amphetamine Screen Urine Not Detected (Not Detect); Barbiturates, Urine Not Detected (Not Detect); Benzodiazepines Screen Urine Not Detected (Not Detect); Buprenorphine Scr Not Detected (Not Detect); Cannabinoid Screen Urine Not Detected (Not Detect); Cocaine Screen Urine Not Detected (Not Detect); Fentanyl, urine Not Detected (Not Detect); Methadone Screen, Urine Not Detected (Not Detect); Opiate Screen Urine Not Detected (Not Detect); Oxycodone Screen Urine Not Detected (Not Detect); Phencyclidine Screen Urine Not Detected (Not Detect)
[2024-02-12 22:41] LABS: Alanine Aminotransferase 12 U/L (0-31); Albumin Level 4.3 g/dL (3.5-5.0); Alkaline Phosphatase 109 U/L (39-117); Anion Gap 12 (12-20); Aspartate Amino Transferase 20 U/L (5-31); Bilirubin Total 0.3 mg/dL (0.0-1.0); Blood Urea Nitrogen 8 mg/dL (9-16); Calcium 9.6 mg/dL (8.4-10.2); Carbon Dioxide 28 mmol/L (22-29); Chloride 102 mmol/L (96-108); Creatinine Clr Calc Pharmacy 90.2; Estimated Glomerular Filt Rate > 60; Glucose Random 117 mg/dL (60-115); Magnesium 1.7 mg/dL (1.6-2.6); Potassium 4.3 mmol/L (3.3-5.1); Sodium 138 mmol/L (135-145); Total Protein 7.8 g/dL (6.5-8.0)
[2024-02-12 23:03] LABS: Bacteria Urine None Seen (None Seen); Hyaline Casts Urine 0-2 /LPF (0-2); RBC Urine 0-2 /HPF (0-2); UACC Culture Trigger YES; WBC Urine 0-5 /HPF (0-5)
[2024-02-12] MEDS: Magnesium Hydrox/Alum Hydrox 30 ML ORAL.SUSP PO (23:55)
[2024-02-13 00:21] VITALS: BP 162/95; PULSE 76; RESP 16; TEMP 36.6; O2SAT 99
--- NOTE | 2024-02-13 05:28 | PC.NURSE ---
will convey to next staff-metformin client states is only once daily however it appears bid in all documentation i can see.
[2024-02-13] MEDS: QUEtiapine Fumarate 300 MG TABLET PO (06:26)
[2024-02-13] MEDS: Losartan Potassium 25 MG TABLET PO (10:57)
[2024-02-13] MEDS: polyethylene glycoL 3350 17 GM POWD.PACK PO (10:57)
[2024-02-13] MEDS: Gabapentin 400 MG CAPSULE 800 MG PO (10:57)
[2024-02-13] MEDS: metFORMIN HCl ER 500 MG TAB.ER.24H PO (10:58)
[2024-02-13 11:33] VITALS: BP 142/95; PULSE 103; RESP 16; TEMP 36.7; O2SAT 98
--- NOTE | 2024-02-13 11:34 | P.CNPS_ITS ---
History of Present Illness Date of Service: 02/13/2024 Chief Complaint: Crisis Reason for Consult: psychosis Requesting physician: Ellie Jennings Discussed with referring provider: Yes Sources of Information: patient interviewed, chart reviewed and crisis/core team assessment reviewed Additional Sources of Information: daughter Branden HPI Narrative: Mrs. Sheikh is a 58 year-old woman with hx of depression who self presented to [facility] asking for refill of seroquel as she is going to visit her son in [place]. She reported increase neuropathic pain and foot/back pain after fracture of right toe using a boot. She reported depressed mood related to pain but denied any safety concerns including SI/HI. She reports at times hearing God or spirits. Utox is negative. Pt presented as oriented x 4. Pt assessed this morning, she reiterates information she provided to ED provider and care team clinician. However, she confused as to why she has been recommended for inpatient level of care. Collateral information gathered from daughter who reports there is no safety concerns in terms of SI or HI. Episodic reports of hearing voice of God or sensing spirits have been intermittent through out her life without affecting her ability to function. Her insight is quiet intact in that she is worried about leaving to [place] without her medications and there was a delayed in her prescription. She reports difficulty sleeping recently due to pain and although overwhelmed, she adamantly denies again SI. She notes she has to go to appointment with specialist. [facility] Medical History Diabetes HTN (hypertension) Arthritis Spinal stenosis Diagnostics Vital Signs (24Hr): Vital Signs - 24 hr 02/12/24 21:16 02/13/24 00:21 Temperature 97.8 F 97.8 F Pulse Rate 99 76 Respiratory Rate 16 16 Blood Pressure 190/111 H 162/95 H Pulse Oximetry 99 99 Oxygen Delivery Method Room Air BMI result Body Mass Index 29.4 Labs 02/12/24 22:19 02/12/24 22:19 Labs: Laboratory Results - last 48 hr 02/12/24 02/12/24 21:51 22:19 WBC 7.2 RBC 3.95 L Hgb 12.0 Hct 35.3 L MCV 89.4 MCH 30.4 MCHC 34.0 RDW 14.7 Plt Count 275 MPV 9.1 L Immature Gran % (Auto) 0.3 Neut % (Auto) 57.0 Lymph % (Auto) 31.5 [place] % (Auto) 8.9 Eos % (Auto) 1.9 Baso % (Auto) 0.4 Lymph # (Auto) 2.3 [place] # (Auto) 0.6 Eos # (Auto) 0.1 Baso # (Auto) 0.0 Abs Immat Gran (auto) 0.02 Absolute Neuts (auto) 4.1 Absolute Nucleated RBC 0.000 Nucleated RBC % (auto) 0.0 Sodium 138 Potassium 4.3 Chloride 102 Carbon Dioxide 28 Anion Gap 12 BUN 8 L Creatinine 0.85 Estim Creat Clear Calc 90.2 Estimated GFR > 60 Random Glucose 117 H Calcium 9.6 Magnesium 1.7 Total Bilirubin 0.3 AST 20 ALT 12 Alkaline Phosphatase 109 Total Protein 7.8 Albumin 4.3 Urine Color Yellow Urine Appearance Clear Urine pH 6.0 Ur Specific [place] 1.020 Urine Protein Negative Urine Glucose (UA) Negative Urine Ketones Trace Urine Blood Negative Urine Nitrite Negative Ur Leukocyte Esterase Small (1+) H Urine RBC 0-2 Urine WBC 0-5 Ur Squamous Epith Cells 6-10 Urine Bacteria None Seen Hyaline Casts 0-2 Urine Test NEGATIVE Urine Opiates Screen Not Detected Ur Buprenorphine Scrn Not Detected Ur Oxycodone Screen Not Detected Urine Methadone Screen Not Detected Urine Fentanyl Screen Not Detected Ur Barbiturates Screen Not Detected Ur Phencyclidine Scrn Not Detected Ur Amphetamines Screen Not Detected U Benzodiazepines Scrn Not Detected Urine Cocaine Screen Not Detected U Marijuana (THC) Screen Not Detected Ethyl Alcohol < 10 Mental Status Exam Mental Status Exam Narrative: Appearance: wearing hospital gown, good hygiene, in NAD behavior: cooperative Psychomotor: no agitation or retardation noted Speech: clear, normal rate/rhythm/volume, spontaneous TP: linear TC: wanting to go home, having refill on medications Mood: good except for pain Affect: congruent, brightens at times SI: NONE HI: none VH/AH: intermittent reports of God or spirits for years on and off Delusions: none Insight/judgment: intact x 2. Memory/cog:alert, oriented x 4. no formal testing, grossly intact to conversational testing. Medications Medications Current Medications Albuterol Sulfate (Albuterol Sulfate (0.083%) 2.5 Mg/3 Ml Vial.Neb) 2.5 mg INHALE Q4H PRN PRN Reason: Shortness of Breath/Wheezing Albuterol Sulfate (Albuterol Sulfate 90 Mcg 8 Gm Inhaler) 2 puff INHALE Q4H PRN PRN Reason: Wheezing Gabapentin (Gabapentin 400 Mg Capsule) 800 mg PO TID [facility] Last Admin: 02/13/24 10:57 Dose: 800 mg Losartan Potassium (Losartan Potassium 25 Mg Tablet) 25 mg PO DAILY [facility]; Protocol Last Admin: 02/13/24 10:57 Dose: 25 mg Metformin HCl (Metformin Hcl Er 500 Mg Tab.Er.24h) 500 mg PO BIDWM [facility] Last Admin: 02/13/24 10:58 Dose: 500 mg Polyethylene Glycol (Polyethylene Glycol 3350 17 Gm Powd.Pack) 17 gm PO DAILY [facility] Last Admin: 02/13/24 10:57 Dose: 17 gm Pravastatin Sodium (Pravastatin Sodium 40 Mg Tablet) 40 mg PO BEDTIME SUZANNE Quetiapine Fumarate (Quetiapine Fumarate 25 Mg Tablet) 25 mg PO DAILY@1200 SUZANNE Quetiapine Fumarate (Quetiapine Fumarate 300 Mg Tablet) 300 mg PO BEDTIME [facility] Last Admin: 02/13/24 06:26 Dose: 300 mg Senna (Sennosides 8.6 Mg Tablet) 8.6 mg PO DAILY@1200 SUZANNE Allergies Allergies Allergy/AdvReac Type Severity Reaction Status Date / Time Iodinated Contrast Media Allergy Unknown UNKNOWN Verified 02/12/24 21:24 [IV Dye, Iodine Containing] morphine Allergy Rash Verified 02/12/24 21:24 paroxetine [From Paxil] Allergy Depression Verified 02/12/24 21:24 methocarbamol [From ROBAXIN] AdvReac Unknown JAUNDICE Verified 02/12/24 21:24 Assessment & Plan Assessment & Plan (1) MDD (major depressive disorder), recurrent episode, with atypical features: Status: Acute Code(s): F33.9 - Major depressive disorder, recurrent, unspecified Plan Mrs. Lr is a 58 year-old woman who self presented initially asking for refill for seroquel as she is going to [place], there was some delay in her prescription from her PCP and she is worried she will not have her medications. She did mention depression in context of increase foot pain after fracture, wearing boot that is exacerbating back pain and affecting her sleep. No SI/HI. Collateral information gathered from from daughter, who denies any safety concerns in terms of SI or HI. In addition there is NO concern in terms of her ability to care for herself or showing ANY signs of being gravely disable to warrant inpatient psychiatric admission. In fact, pt shows intact insight as to her concern of missing her medications and going to [place] without them. She also shows understanding as to steps she needs to follow to address increased in back pain and knows she has to see a specialist for this. PLAN 1. There no safety concerns in terms of SI or HI, nor patient is gravely disable due to psychiatric symptoms. Pt can discharge home. Daughter agrees with plan as well and denies any safety concerns. 2. will send rx for seroquel 300mg po qhs, with additional 50mg po qhs prn sleep Total time managing care of this patient today ____ minutes. Patient educated on: diagnosis
[2024-02-13 11:44] VITALS: BP 142/95; PULSE 103; RESP 16; TEMP 36.7; O2SAT 98
--- NOTE | 2024-02-13 11:49 | PC.NURSE ---
pt cleared by care team as well as psychiatry and no longer requires inpatient bed search. vitals updated. pt's belongings returned.
--- NOTE | 2024-02-13 13:43 | MHC.CARE ---
Pt has been referred to [facility] for a mid level prescriber and [facility] for therapy
== END 2024-02-13 11:52 | disposition home or self-care (01) ==
PROVIDERS: Nurse Practitioner Family; Emergency Provider Emergency Medicine; PCP General Practice
DX: F33.1 Major depressive disorder, recurrent, moderate (principal); F41.9 Anxiety disorder, unspecified; G89.29 Other chronic pain; Z79.899 Other long term (current) drug therapy
CPT/HCPCS: 36415; 80053; 80307; 81001; 81025; 83735; 85025; 87086; 99284; S9485

== ENCOUNTER → 2024-02-12 21:28 | Outpatient (BNV) | payer OTHER, SELFPAY | PROVIDERS: Emergency Provider Emergency Medicine; PCP General Practice; Visit Provider Social Worker | DX: F33.1 Major depressive disorder, recurrent, moderate (principal) | CPT/HCPCS: 99284 ==

== ENCOUNTER 2024-04-17 12:16 | Outpatient (REF) | payer OTHER, SELFPAY ==
[2024-04-17 17:43] LABS: CT PCR NOT DETECTED (Not Detect.); NG PCR NOT DETECTED (Not Detect.)
[2024-04-18 03:43] LABS: HIV AB/AG Nonreactive (Nonreactive); HIV Num 1 0.05 S/CO (0.00-0.99); ~Hepatitis C Antibody Nonreactive (Nonreactive)
[2024-04-18 13:16] LABS: Bacterial Vaginosis PCR NEGATIVE (Negative); Candida Group PCR NOT DETECTED (Not Detect); Candida glab krusei PCR NOT DETECTED (Not Detect); Trichomonas vaginalis PCR NOT DETECTED (Not Detect)
[2024-04-20 10:38] LABS: HPV 16,18/45 See PAP report
== END 2024-04-17 12:17 | disposition home or self-care (01) ==
LOC: HO.HHCL 12:16
PROVIDERS: Visit Provider General Practice
DX: Z11.3 Encounter for screening for infections with a predominantly sexual mode of transmission (principal); Z12.4 Encounter for screening for malignant neoplasm of cervix; Z78.0 Asymptomatic menopausal state
CPT/HCPCS: 0352U; 36415; 86803; 87389; 87491; 87591; 87624; 88175

== ENCOUNTER 2024-05-28 16:46 | Emergency (ER) | payer MEDICAID, SELFPAY ==
--- NOTE | ~2024-05-28 | XR_ITS ---
CLINICAL HISTORY: Pneumonia? Coughing 1 view chest x-ray Comparison: 06/25/23 Findings: No new consolidation or effusion. Normal size heart. No acute fracture. IMPRESSION: 1. No acute findings. This document has been electronically signed by: Ayaz Christian MD on 05/28/2024 18:26:47
[2024-05-28 17:07] VITALS: BP 150/84; PULSE 92; RESP 19; TEMP 36.6; O2SAT 98; BMI 35.0
--- NOTE | 2024-05-28 17:14 | ED_ITS ---
HPI - General Adult General Chief complaint: Upper Respiratory Symptoms Stated complaint: fever,congested cough,asthma Time Seen by Provider: 05/28/24 20:49 Source: patient, family, RN notes reviewed and old records reviewed Mode of arrival: ambulatory Limitations: no limitations History of Present Illness ED Provider: Derick HPI narrative: 59-year-old female past medical history significant for hypertension, diabetes, major depressive disorder, asthma presents for evaluation of chills fevers, congestion and shortness of breath. She reports her symptoms started 1 week ago with shortness of breath and cough. She reports that she has blood-tinged sputum when she blows her nose. She has not taken her temperature but reports fevers and chills She was used numerous [id number] medications as well as multiple nebulizers without any improvement in her symptoms Denies any chest pain. No other complaints or concerns at this time Related Data Home Medications ?Medication ?Instructions ?Recorded ?Confirmed albuterol sulfate 90 mcg/actuation 2 puff inhalation Q4H PRN wheezing 02/13/24 02/13/24 aerosol inhaler (Ventolin HFA) diclofenac sodium 1 % topical gel 2 g topical BID-TID 02/13/24 02/13/24 epinephrine 0.3 mg/0.3 mL 0.3 mg IM ONCE anaphylaxis 02/13/24 02/13/24 injection, auto-injector fluticasone propionate 230 2 puff inhalation BID 02/13/24 02/13/24 mcg-salmeterol 21 mcg/actuation HFA inhaler (Advair HFA) gabapentin 800 mg tablet 800 mg PO TID 02/13/24 02/13/24 losartan 25 mg tablet 25 mg PO DAILY 02/13/24 02/13/24 metformin 500 mg tablet,extended 500 mg PO BID 02/13/24 02/13/24 release 24 hr polyethylene glycol 3350 17 gram 17 g PO DAILY 02/13/24 02/13/24 oral powder packet pravastatin 40 mg tablet 40 mg PO BEDTIME cholesterol 02/13/24 02/13/24 quetiapine 25 mg tablet 25 mg PO QNOON 02/13/24 02/13/24 quetiapine 300 mg tablet 300 mg PO BEDTIME 02/13/24 02/13/24 sennosides 8.6 mg tablet (senna) 8.6 mg PO QNOON 02/13/24 02/13/24 tramadol 50 mg tablet 50 mg PO Q8H PRN pain 02/13/24 02/13/24 Previous Rx's ?Medication ?Instructions ?Recorded albuterol sulfate 2.5 mg/3 mL 2.5 mg (3 mL) inhalation Q4H PRN 12/07/20 (0.083 %) solution for nebulization shortness of breath or wheezing #180 mL quetiapine 300 mg tablet (Seroquel) 300 mg PO BEDTIME #30 tabs 02/13/24 quetiapine 50 mg tablet (Seroquel) 50 mg PO BEDTIME #30 tabs 02/13/24 azithromycin 250 mg tablet See Rx Instructions PO .COMPLEX #6 05/28/24 tabs prednisone 20 mg tablet 40 mg (2 x 20 mg) PO DAILY #10 tabs 05/28/24 Allergies Allergy/AdvReac Type Severity Reaction Status Date / Time Iodinated Contrast Media Allergy Unknown UNKNOWN Verified 05/28/24 17:10 [IV Dye, Iodine Containing] morphine Allergy Rash Verified 05/28/24 17:10 paroxetine [From Paxil] Allergy Depression Verified 05/28/24 17:10 shellfish derived [shellfish] Allergy Hives Verified 05/28/24 17:10 methocarbamol [From ROBAXIN] AdvReac Unknown JAUNDICE Verified 05/28/24 17:10 Review of Systems Constitutional: Constitutional: Reports body ache(s), Reports chills, Reports fever(s), Reports headache(s), Denies lethargy and Denies weakness Eyes: Eyes: Denies blurry vision ENT: Denies ear discharge, Denies otalgia, Reports facial pain, Reports headache(s), Reports nasal congestion and Denies sore throat Cardiovascular: Cardiovascular: Denies dyspnea Respiratory: Respiratory: Denies cough and Denies dyspnea Gastrointestinal: Gastrointestinal: Denies abdominal pain, Denies nausea and Denies vomiting Musculoskeletal: Musculoskeletal: Denies back pain Integumentary/Breasts: Skin/Breast: Denies rash Neurologic: Reports headache(s) and Denies weakness Psychiatric: Psychiatric: Denies anxiety PMFSH Past Medical History Medical History Diabetes HTN (hypertension) Arthritis Spinal stenosis Social History Social History Advance Directives: No Advance Directives Information Provided: No Do you have a plan to hurt others: No Plan Physical Exam ED Vital Signs: Vital Signs - 24 hr 05/28/24 17:07 05/28/24 19:04 05/28/24 21:34 Temperature 98 F 0 F L Pulse Rate 92 99 99 Respiratory Rate 19 22 H 22 H Blood Pressure 150/84 H 00/00 L Pulse Oximetry 98 0 L Oxygen Delivery Method Room Air BMI result Body Mass Index 35.0 Const General: healthy appearing, comfortable, no acute distress, alert and awake Nutritional Appearance: well nourished Orientation/consciousness: patient oriented x3 HENMT Head: Yes normocephalic and Yes atraumatic General nose exam: Normal septum present and No nasal discharge present Face and sinus: No sinuses nontender and Yes sinus tenderness Eyes Eyelids: Yes eyelids normal Conjunctivae: conjunctivae normal Sclerae: sclerae normal Corneas: corneas normal Pupils: Equal, round and reactive pupils present EOM: EOMs intact bilaterally Neck Neck: Yes full ROM Resp Effort & Inspection: normal respiratory effort, able to speak in complete sentences and not labored Cardio Rate: regular rate Rhythm: regular rhythm GI Inspection: No distended Palpation (GI): Soft to palpation, not firm, nontender, no guarding and not rigid Skin General skin exam: elasticity normal Neuro General: patient oriented x3 Cranial nerves: Yes Equal, round and reactive pupils present and Yes Bilaterally intact EOM present Cognition (Neuro): normal cognition Extrem Other: Moving all extremities well without any obvious deformities Course Course Course Narrative: RME: 59-year-old female presents to the ED for coughing fever chills congestion for 1 week. Diminished lung sounds. ED bronchodilator x-ray SARs strep ordered Medications Administered Discontinued Medications Generic Name Dose Route Start Last Admin Trade Name Freq PRN Reason Stop Dose Admin Albuterol Sulfate 5 mg/ 0 mg 05/28/24 18:58 05/28/24 19:04 Albuterol/Ipratropium 3 ml INHALE 05/28/24 18:59 1 each ONCE ONE Administration Medical Decision Making Medical Decision Making MDM Narrative: 59-year-old female with past medical history as documented above presents for evaluation of subjective fevers and upper respiratory symptoms. Her primary complaint seems to be sinus pressure and tenderness. She does have tenderness to the sinuses bilaterally. She has been sick for a week with upper respiratory symptoms and likely has acute sinusitis. Her chest x-ray does not show any evidence of pneumonia, viral swabs are negative. We will treat acute sinusitis with azithromycin and prednisone given that she is an asthmatic Differential Diagnosis Differential Diagnoses: The differential diagnosis associated with the presentation includes Acute sinusitis Upper respiratory infection Pneumonia Bronchitis Lab Data Labs: Lab Results 05/28/24 Range/Units 18:13 Influenza Type A (PCR) NEGATIVE (Negative) Influenza Type B (PCR) NEGATIVE (Negative) RSV RNA Qual (PCR) NEGATIVE (Negative) SARS-CoV-2 RNA (RT-PCR) NEGATIVE (Negative) S. pyogenes GrpA DESHANW Negative (Negative) Radiology Impression Discussion of test interpretation with radiology: I have reviewed the radiologist's reading. Radiologist Impression: Findings: No new consolidation or effusion. Normal size heart. No acute fracture. IMPRESSION: 1. No acute findings. This document has been electronically signed by: Ayaz Christian MD on 05/28/2024 18:26:47 Discharge Plan Discharge Clinical Impression: Acute sinusitis Patient Disposition: Home, Self-Care Instructions: Sinusitis (ED) Additional Instructions: You tested negative for influenza, COVID-19, RSV. Your chest x-ray was clear. Take azithromycin as prescribed and I recommend that you take prednisone 40 mg daily for the next 5 days. Check your blood sugar frequently while you are taking this medication as it will likely cause your sugars to be elevated Prescriptions: New azithromycin 250 mg tablet See Rx Instructions .ROUTE .COMPLEX Qty: 6 0RF Rx Instructions: For 250 mg dose pack: take 500 mg today (day 1), then 250 mg for 4 days (days 2-5) prednisone 20 mg tablet 40 mg PO DAILY Qty: 10 0RF No Action albuterol sulfate 2.5 mg /3 mL (0.083 %) solution for nebulization 2.5 mg inhalation Q4H PRN (Reason: shortness of breath or wheezing) Qty: 180 1RF fluticasone propion-salmeterol [Advair HFA] 230-21 mcg/actuation HFA aerosol inhaler 2 puff inhalation BID diclofenac sodium 1 % gel 2 g topical BID-TID tramadol 50 mg tablet 50 mg PO Q8H PRN (Reason: pain) gabapentin 800 mg tablet 800 mg PO TID sennosides [senna] 8.6 mg tablet 8.6 mg PO QNOON quetiapine 300 mg tablet 300 mg PO BEDTIME polyethylene glycol 3350 17 gram powder in packet 17 g PO DAILY metformin 500 mg tablet extended release 24 hr 500 mg PO BID quetiapine 25 mg tablet 25 mg PO QNOON losartan 25 mg tablet 25 mg PO DAILY epinephrine 0.3 mg/0.3 mL auto-injector 0.3 mg IM ONCE pravastatin 40 mg tablet 40 mg PO BEDTIME albuterol sulfate [Ventolin HFA] 90 mcg/actuation HFA aerosol inhaler 2 puff inhalation Q4H PRN (Reason: wheezing) quetiapine [Seroquel] 300 mg tablet 300 mg PO BEDTIME Qty: 30 0RF quetiapine [Seroquel] 50 mg tablet 50 mg PO BEDTIME Qty: 30 0RF Interventions: ED Discharge Assessment Last Done: 05/28/24 21:34 Discharge Date/Time: 05/28/24 21:35 Print Language: Bulgarian
[2024-05-28 19:04] VITALS: PULSE 99; RESP 22; O2SAT 97
[2024-05-28] MEDS: Albuterol Sulfate 5 MG, Albuterol/Iprat 2.5/0.5MG 3 ML 3 ML INHALE (19:04)
[2024-05-28 19:05] LABS: IDNOW Serial# 08D9AD1C; Strep A Nucleic Acid Negative (Negative)
[2024-05-28 19:35] LABS: Influenza A PCR NEGATIVE (Negative); Influenza B PCR NEGATIVE (Negative); Resp Syncy Virus RNA Qual PCR NEGATIVE (Negative); SARS COV2 PCR INHOUSE NEGATIVE (Negative)
[2024-05-28 21:34] VITALS: BP 00/00; PULSE 99; RESP 22; TEMP -17.7; TEMP 0; O2SAT 0
== END 2024-05-28 21:35 | disposition home or self-care (01) ==
PROVIDERS: Physician Assistant; Emergency Provider Emergency Medicine; PCP General Practice
DX: J01.90 Acute sinusitis, unspecified (principal); R50.9 Fever, unspecified; R05.9 Cough, unspecified; J45.909 Unspecified asthma, uncomplicated; R06.02 Shortness of breath; Z03.818 Encounter for observation for suspected exposure to other biological agents ruled out; Z79.899 Other long term (current) drug therapy
CPT/HCPCS: 0241U; 71045; 87651; 94640; 99283; 99284

== ENCOUNTER → 2024-05-28 17:12 | Outpatient (BNV) | payer MEDICAID, SELFPAY | PROVIDERS: PCP General Practice; Visit Provider Specialist | DX: R05.9 Cough, unspecified (principal) | CPT/HCPCS: 71045 ==

== ENCOUNTER 2024-10-26 12:41 | Outpatient (REF) | payer MEDICAID, SELFPAY ==
--- NOTE | ~2024-10-26 | XR_ITS ---
EXAMINATION: XR HIP 2 OR MORE VIEWS BILATERAL HISTORY: trouble with walking COMPARISON: Comparison is made with the prior examination of the pelvis and left hip dated 08/11/2019. FINDINGS: Two AP views of the pelvis and two views of each hip are submitted. Osseous mineralization is normal. There is no fracture or dislocation. There is mild narrowing of both hip joint spaces. There is also mild degenerative change of the sacroiliac joints. The soft tissues are unremarkable. XR/XR hips OLEG min 3V IMPRESSION: Mild narrowing of both hip joints. Electronically signed by: Judson Moore MD 10/26/2024 01:27 PM EDT
--- OUTSIDE RECORDS SUMMARY | 2024-10-26 13:37 | XMS_ITS | Encounter Summary ---
Author Organization [employer] Address [address] [place] [address] Care Team Providers Care Edge Setter Name Role Phone Krys Myers MD Primary Care Provider [phone] Reason for Visit * Reason Comments Med Refill Encounter Details Date Type Department Care Team ([facility] Contact Info) Description 04/11/2023 Refill [facility] [address] [place] [address] Ladonna Wellington MD [address] [place] [address] Social History Tobacco Use Types Packs/Day Years Used Date Smoking Tobacco: Former Cigarettes Smokeless Tobacco: Never Comments Unknown Sex and Gender Information Value Date Recorded Sex Assigned at Female 03/26/2022 10:14 AM EDT Legal Sex Female 10:14 AM EDT Gender Identity Female 03/26/2022 10:14 AM EDT Sexual Orientation Choose not to disclose 2021 10:14 AM EDT documented as of this encounter Plan of Treatment Not on file documented as of this encounter Visit Diagnoses Not on filedocumented in this encounter Care Teams Edge Setter Relationship Specialty Start Date End Date Krys Myers MD [address] [place] [address] PCP - General Family Medicine 04/06/20 documented as of this encounter
== END 2024-10-26 12:42 | disposition home or self-care (01) ==
LOC: HO.HHCX 12:41
PROVIDERS: Visit Provider General Practice
DX: M25.551 Pain in right hip (principal); M25.552 Pain in left hip
CPT/HCPCS: 73522

== ENCOUNTER → 2024-10-26 12:41 | Outpatient (BNV) | payer MEDICAID, SELFPAY | PROVIDERS: Visit Provider Radiology Diagnostic Radiology | DX: M16.0 Bilateral primary osteoarthritis of hip (principal) | CPT/HCPCS: 73522 ==

== ENCOUNTER 2025-01-26 14:11 | Outpatient (REF) | payer MEDICAID, SELFPAY ==
--- NOTE | ~2025-01-26 | XR_ITS ---
EXAMINATION: XR FOOT, RIGHT CLINICAL INFORMATION: 8 days of right 5 th toe pain and sweeling after kicking a box COMPARISON: None available. TECHNIQUE: AP, lateral, and oblique views of the right foot. FINDINGS: There is an oblique fracture involving the fifth proximal phalanx that extends from plantar neck region to the proximal metadiaphysis. Other abnormalities are evident. XR/XR foot RT min 3V IMPRESSION: There is an acute extra-articular fracture of the fifth proximal phalanx. Electronically signed by: Binu Bernstein MD 01/26/2025 03:30 PM EDT
--- OUTSIDE RECORDS SUMMARY | 2025-01-26 14:00 | XMS_ITS | Encounter Summary ---
Author Organization [employer] Address 75 [facility] 7t [place] [address] Care Team Providers Care Geography Professor Name Role Phone rKys Myers MD Primary Care Provider [phone] Reason for Visit * Reason Comments Neck Pain Shoulder Pain right foot pain Encounter Details Date Type Department Care Team (Latest Contact Info) Description 01/26/2025 2:00 PM EDT Office Visit [facility] [address] [place] [address] [phone] Name, MD James [address] [place] [address] Neck pain, musculoskeletal (Primary Dx); Acute pain of right shoulder; Toe joint pain, right; Unspecified fracture of right toe(s), initial encounter for closed fracture Social History Tobacco Use Types Packs/Day Years Used Date Smoking Tobacco: Former Cigarettes Passive Smoke Exposure: Current Smokeless Tobacco: Never Tobacco Cessation:Counseling Given: Not Answered Depression Answer Date Recorded Patient Health Questionnaire-9 Score 3 09/18/2023 Patient Health Questionnaire-9 Score 3 09/18/2023 Last PHQ-9: Questionnaire Data Not on file 0 09/18/2023 Housing Stability Answer Date Recorded What is your housing situation today? I have edith terra 04/29/[address] you li ve. Do you have problems with any of the following? None of the above 04/29/2023 Food Insecurity Answer Date Recorded Within the past 12 months, y ou worried that your food would run out before you got money to buy more: Never True 04/29/2023 Within the past 12 months,th e food you bought just didn't last and you didn't have enough money to get more: Never True 08/2022 Transportation Answer Date Recorded In the past 12 months, has l ack of transportation kept you from medical appts, meetings, work or from getting things needed for daily living? No 04/29/2023 Utilities Answer Date Recorded In the past 12 months, has t he electric, gas, oil or water company threatened to shut off services in your home? No 04/29/2023 Depression Answer Date Recorded Patient Health Questionnaire-2 Score 2 09/18/2023 Comments Unknown Sex and Gender Information Value Date Recorded Sex Assigned at Female 03/26/2022 10:14 AM EDT Legal Sex Female 10:14 AM EDT Gender Identity Female 03/26/2022 10:14 AM EDT Sexual Orientation Choose not to disclose 2021 10:14 AM EDT documented as of this encounter Last Filed Vital Signs Vital Sign Reading Time Taken Comments Blood Pressure 144/93 01/26/2025 1:33 PM EDT Pulse 104 01/26/2025 1:33 PM EDT Temperature 36.8 C (98.2 F) 01/26/2025 1:33 PM EDT Respiratory Rate 18 01/26/2025 1:33 PM EDT Oxygen Saturation 98% 01/26/2025 1:33 PM EDT Inhaled Oxygen Concentration - - Weight 122 kg (269 lb) 01/26/2025 1:33 PM EDT Height - - Body Mass Index 39.72 04/17/2024 11:04 AM EST documented in this encounter Progress Notes * James Teran MD - 01/26/2025 2:00 PM EDT Subjective Patient ID: Latisha Lr is a 59 y.o. female who presents for Neck Pain, Shoulder Pain, and right foot pain. Patient comes for a sick visit. She is accompanied by her daughter. She complains of 2 days of severe neck pain with radiation to right shoulder. She describes increased tension on the muscles of theright posterior neck and right shoulder areas. Pain is exacerbated by movements of the right shoulder. She does not have any rash on the affected area, no history of trauma, no fevers or chills. The patient explains to me this is a recurring problem for her. She tells me she was diagnosed with a cervical spine disc herniation many years ago. The patient is already on tramadol prescribed by PCP for chronic musculoskeletal pain. She is also prescribed cyclobenzaprine that she does not use regularly. Patient also complains of about a week of right foot pain, she has slight swelling and discomfort on palpation of the right fifth toe. Pain started after she accidentally kicked a piece of furniture.She has difficulties wearing closed shoes due to the pain. Review of Systems Constitutional: Negative for chills and fever. HENT: Negative for sore throat. Respiratory: Negative for cough, shortness of breath and wheezing. Cardiovascular: Negative for chest pain, palpitations and leg swelling. Gastrointestinal: Negative for abdominal pain. Musculoskeletal: See HPI Objective Vitals: 01/26/25 1333 BP: (!) 144/93 BP Location: Right arm Patient Position: Sitting BP Cuff Size: Large adult Pulse: 104 Resp: 18 Temp: 98.2 ??F (36.8 ??C) TempSrc: Temporal SpO2: 98% Weight: 269 lb (122 kg) Physical Exam Constitutional: Appearance: Normal appearance. Cardiovascular: Rate and Rhythm: Normal rate and regular rhythm. Heart sounds: No murmur heard. No gallop. Pulmonary: Effort: Pulmonary effort is normal. No respiratory distress. Breath sounds: Normal breath sounds. No wheezing. Musculoskeletal: Right shoulder: Tenderness present. No swelling or bony tenderness. Decreased range of motion. Cervical back: Spasms and tenderness present. No swelling or bony tenderness. Decreased range of motion. Right lower leg: No edema. Left lower leg: No edema. Feet: Comments: Slight swelling and discomfort on palpation of the right fifth toe. Neurological: Mental Status: She is alert. Assessment/Plan Diagnoses and all orders for this visit: Neck pain, musculoskeletal Comments: Myofascial pain?, pain related to cervical spine disc herniation? I prescribed the patient a short course of prednisone for the pain. She told me that she responded to this type of treatment in the past. She is encouraged to continue using the tramadol and Flexeril as prescribed by her PCP. Call orcome back if not much better after using the prednisone. Acute pain of right shoulder Toe joint pain, right Comments: I have recommended evaluation with foot x-ray to rule out toe fracture. She is recommended foot elevation and apply ice to the affected area. The foot x-ray did confirm a closed nondisplaced fracture of the right fifth toe. We did manda taping and prescribed the patient a walking boot in addition to above recommendations. Orders: - XR Foot 3+ Views Right; Future Other orders - predniSONE (Deltasone) 20 MG tablet; Take 2 tablets (40 mg) by mouth Once per day for 5 days. Future Appointments Date Time Provider Department Center 01/26/2025 2:00 PM [facility] 1 WALK-IN [facility] 03/16/2025 11:30 AM Yancy Quezada RN MEDICINE [facility] documented in this encounter Plan of Treatment Upcoming Encounters Date Type Department Care Team (Late st Contact Info) Description 03/16/2025 11:30 AM EDT Clinical Support [facility] [address] [place] [phone] Yancy Quezada RN Scheduled Orders Name Type Priority Associated Diagnoses Orde r Schedule XR Foot 3+ Views Right Imaging Routine Toe joint pain, right Expected: 01/26/2025, Expires: 01/26/2026 documented as of this encounter Visit Diagnoses Diagnosis Neck pain, musculoskeletal- Primary Acute pain of right shoulder Toe joint pain, right Unspecified fracture of right toe(s), initial encounter for closed fracture documented in this encounter Additional Health Concerns Assessment Noted Time PHQ-9 Depression Total Score: 3 09/18/19 24 3:35 PM EDT documented as of this encounter Care Teams Geography Professor Relationship Specialty Start Date End Date Krys Myers MD [address] [place] [address] PCP - General Family Medicine 04/06/20 documented as of this encounter
--- OUTSIDE RECORDS SUMMARY | 2025-01-26 15:26 | XMS_ITS | Encounter Summary ---
Author Organization [employer] [facility] Address [address] [facility] 7t [place] [address] Care Team Providers Care Telecommunications Cable Jointer Name Role Phone Krys Myers MD Primary Care Provider [phone] Reason for Visit * Reason Comments Med Refill Encounter Details Date Type Department Care Team ([facility] Contact Info) Description 04/11/2023 Refill [facility] [address] [place], [place] [phone] Ladonna Wellington MD [address] [place] [address] Social History Tobacco Use Types Packs/Day Years [...] as of this encounter Plan of Treatment Upcoming Encounters Date Type Department Care Team ([facility] Contact Info) Description 03/16/2025 11:30 AM EDT Clinical Support [facility] MEDICINE [address] [place] [address] Yancy Quezada RN documented as of this encounter Visit Diagnoses Not on filedocumented in this encounter Care Teams Telecommunications Cable Jointer Relationship Specialty Start Date End Date Krys Myers MD [address] [place], [place] [phone] PCP - General Family Medicine 04/06/20 documented as of this encounter
--- OUTSIDE RECORDS SUMMARY | 2025-01-26 15:26 | XMS_ITS | Encounter Summary ---
Author Organization [employer] Address 75 [facility] 7t [place] [address] Care Team Providers Care Box Attacher Name Role Phone Krys Myers MD Primary Care Provider [phone] Reason for Visit * Reason Comments Med Refill Encounter Details Date Type Department Care Team ([facility] Contact Info) Description 06/19/2024 Refill [facility] [address] [place], [place] [phone] Krys Myers MD [address] [place], [place] [phone] Chronic pansinusitis; Depression, psychotic (CMS/HCC); Type 2 diabetes mellitus with obesity (CMS/HCC) (CMS/HCC) Social History Tobacco Use Types Packs/Day Years Used Date Smoking Tobacco: Former Cigarettes Passive Smoke Exposure: Current Smokeless Tobacco: Never Depression Answer Date Recorded Patient Health Questionnaire-9 Score 3 09/18/2023 Patient Health Questionnaire-9 Score 3 09/18/2023 Last PHQ-9: Questionnaire Data Not on file 0 09/18/2023 Housing Stability Answer Date Recorded What is your housing situation today? I have edith ellison 04/29/[address] you li [...] Description 03/16/2025 11:30 AM EDT Clinical Support [facility] [address] [place] [address] Yancy Quezada, RN documented as of this encounter Visit Diagnoses Diagnosis Chronic pansinusitis Other chronic sinusitis Depression, psychotic (CMS/HCC) Major depressive disorder, single episode, unspecified Type 2 diabetes mellitus with obesity (CMS/HCC) (CMS/HCC) documented in this encounter Additional Health Concerns Assessment Noted Time PHQ-9 Depression Total Score: 3 09/18/19 24 3:35 PM EDT documented as of this encounter Care Teams Box Attacher Relationship Specialty Start Date End Date Krys Myers MD [address] [place] [phone] PCP - General Family Medicine 04/06/20 documented as of this encounter
--- OUTSIDE RECORDS SUMMARY | 2025-01-26 15:26 | XMS_ITS | Encounter Summary ---
Author Organization [employer] Address [address] [facility] 7t [place] [address] Care Team Providers Care Mini Baccarat Dealer Name Role Phone Krys Myers MD Primary Care Provider [phone] Encounter Details Date Type Department Care Team ([facility] st Contact Info) Description 03/20/2024 Orders Only [facility] MED[facility]INE [address] [place], [place] [phone] Krys Myers MD [address] [place], [place] [phone] Social History Tobacco Use Types Packs/Day Years [...] Description 03/16/2025 11:30 AM EDT Clinical Support [facility] [address] [place] [address] Yancy Quezada RN documented as of this encounter Visit Diagnoses Not on filedocumented in this encounter Additional Health Concerns Assessment Noted Time PHQ-9 Depression Total Score: 3 09/18/19 24 3:35 PM EDT documented as of this encounter Care Teams Mini Baccarat Dealer Relationship Specialty Start Date End Date Krys Myers MD [address] [place] [address] PCP - General Family Medicine 04/06/20 documented as of this encounter
--- OUTSIDE RECORDS SUMMARY | 2025-01-26 15:26 | XMS_ITS | Encounter Summary ---
Author Organization [employer] Address [address] [facility] 7t [place] [address] Care Team Providers Care Wrapper Caser Name Role Phone Krys Myers MD Primary Care Provider Reason for Visit * Reason Comments Med Refill Encounter Details Date Type Department Care Team ([facility] Contact Info) Description 04/16/2024 Refill [facility] MEDICINE [address] [place], [place] [phone] Krys Myers MD [address] [place], [place] [phone] Social History Tobacco Use Types Packs/Day Years [...] Description 03/16/2025 11:30 AM EDT Clinical Support [facility] MEDICINE [address] [place] [phone] Yancy Quezada RN documented as of this encounter Visit Diagnoses Not on filedocumented in this encounter Additional Health Concerns Assessment Noted Time PHQ-9 Depression Total Score: 3 09/18/19 24 3:35 PM EDT documented as of this encounter Care Teams Wrapper Caser Relationship Specialty Start Date End Date Krys Myers MD [address] [place] [phone] PCP - General Family Medicine 04/06/20 documented as of this encounter
--- OUTSIDE RECORDS SUMMARY | 2025-01-26 15:26 | XMS_ITS | Encounter Summary ---
Author Organization [employer] Address [address] [facility] 7t [place] [address] Care Team Providers Care Commodity Loan Clerk Name Role Phone Krys Myers MD Primary Care Provider [phone] Reason for Visit * Reason Comments Med Refill Encounter Details Date Type Department Care Team ([facility] Contact Info) Description 06/14/2024 Refill [facility] MED[facility]INE [address] [place], [place] [phone] Krys Myers MD 230 [place], [place] [phone] Social History Tobacco Use Types Packs/Day Years [...] Description 03/16/2025 11:30 AM EDT Clinical Support [facility] MEDICINE [address] [place] [phone] Yancy Quezada RN documented as of this encounter Visit Diagnoses Not on filedocumented in this encounter Additional Health Concerns Assessment Noted Time PHQ-9 Depression Total Score: 3 09/18/19 24 3:35 PM EDT documented as of this encounter Care Teams Commodity Loan Clerk Relationship Specialty Start Date End Date Krys Myers MD [address] [place] [address] PCP - General Family Medicine 04/06/20 documented as of this encounter
--- OUTSIDE RECORDS SUMMARY | 2025-01-26 15:27 | XMS_ITS | Encounter Summary ---
Author Organization [employer] Address [address] [facility] 7t [place] [address] Care Team Providers Care Knockout Machine Operator Name Role Phone Krys Myers MD Primary Care Provider [phone] Reason for Visit * Reason Onset Date Comments Med Refill 07/09/2024 Encounter Details Date Type Department Care Team ([facility] st Contact Info) Description 07/09/2024 Telephone [facility] MEDICINE [address] [place], [place] [phone] Krys Myers MD 230 [place] [address] Med Refill Social History Tobacco Use Types Packs/Day Years [...] AM EDT documented as of this encounter Miscellaneous Notes * Telephone Encounter - Yancy Quezada RN - 07/10/2024 11:49 AM EST Received the following message from PCP today: Please call patient and re- iterate that she is supposed to be doing PT and ortho, not Tramadol mgmt. She is not on [employer] agreement and cannot receive opioids continuously then. Also, I am still receiving Seroquel refills and she was supposed to be transferred to psych. What happened there? Please offer to book her in chronic pain, non-[employer] group. TC to patient, interpretation provided by staff member Brandie Resendiz, no answer. L/M asking her to call back. * Telephone Encounter - Yancy Quezada RN - 07/09/2024 11:35 AM EST Per [facility] Tramadol last picked up 06/16/24, refill not due until 07/16/24. Per message from PCP 06/16/24, I just signed this with change in sig for 50mg every 12 hours prn. This is not designed as a skilled nursing prescription, she is supposed to be getting into ortho and PT. I did not see that was in her chart at all. Maybe we can figure out if that is the case. She would be agood one for groups, acupuncture, all of the above. * Telephone Encounter - Janell De La Garza - 07/09/2024 10:12 AM EST TC from pt requesting medication refill. Medications needing refill : traMADol (Ultram) 50 MG tablet To be sent to: [facility][id number] - [place], [place] - [address] documented in this encounter Plan of Treatment Upcoming Encounters Date Type Department Care Team (Late st Contact Info) Description 03/16/2025 11:30 AM EDT Clinical Support [facility] MEDICINE [address] [place] [address] Yancy Quezada RN documented as of this encounter Visit Diagnoses Not on filedocumented in this encounter Additional Health Concerns Assessment Noted Time PHQ-9 Depression Total Score: 3 09/18/19 24 3:35 PM EDT documented as of this encounter Care Teams Knockout Machine Operator Relationship Specialty Start Date End Date Krys Myers MD [address] [place] [phone] PCP - General Family Medicine 04/06/20 documented as of this encounter
--- OUTSIDE RECORDS SUMMARY | 2025-01-26 15:27 | XMS_ITS | Encounter Summary ---
Author Organization [employer] Address [address] [facility] 7t [place] [address] Care Team Providers Care Pinked Edge Sewing Machine Operator Name Role Phone Krys Myers MD Primary Care Provider [phone] Reason for Visit * Reason Comments Med Refill Encounter Details Date Type Department Care Team ([facility] Contact Info) Description 07/09/2024 Refill [facility] MEDICINE [address] [place], [place] [phone] Krys Myers MD [address] [place], [place] [phone] Benign hypertension Social History Tobacco Use Types Packs/Day Years [...] Description 03/16/2025 11:30 AM EDT Clinical Support [facility] MEDICINE [address] [place] [address] Yancy Quezada RN documented as of this encounter Visit Diagnoses Diagnosis Benign hypertension Essential hypertension, benign documented in this encounter Additional Health Concerns Assessment Noted Time PHQ-9 Depression Total Score: 3 09/18/19 24 3:35 PM EDT documented as of this encounter Care Teams Pinked Edge Sewing Machine Operator Relationship Specialty Start Date End Date Krys Myers MD [address] [place] [address] PCP - General Family Medicine 04/06/20 documented as of this encounter
--- OUTSIDE RECORDS SUMMARY | 2025-01-26 15:27 | XMS_ITS | Encounter Summary ---
Author Organization [employer] Address [address] [facility] 7t [place] [address] Care Team Providers Care Customs Import Specialist Name Role Phone Krys Myers MD Primary Care Provider [phone] Reason for Visit * Reason Comments Med Refill Encounter Details Date Type Department Care Team ([facility] Contact Info) Description 07/08/2023 Refill [facility] [address] [place], [place] [phone] Name, MD James [address] [place], [place] [phone] Recurrent major depressive disorder, remission status unspecified (CMS/[facility]) Social History Tobacco Use Types Packs/Day Years Used Date Smoking Tobacco: Former Cigarettes Smokeless Tobacco: Never Housing Stability Answer Date Recorded What is your housing situation today? I have edithelsy ellison 04/29/[address] [...] off services in your home? No 04/29/2023 Comments Unknown Sex and Gender Information Value [...] Description 03/16/2025 11:30 AM EDT Clinical Support [facility] [address] [place] [address] Yancy Quezada, [facility] documented as of this encounter Visit Diagnoses Diagnosis Recurrent major depressive disorder, remission status unspecified (CMS/[facility]) documented in this encounter Care Teams Customs Import Specialist Relationship Specialty Start Date End Date Krys Myers MD [address] [place] [phone] PCP - General Family Medicine 04/06/20 documented as of this encounter
--- OUTSIDE RECORDS SUMMARY | 2025-01-26 15:27 | XMS_ITS | Encounter Summary ---
Author Organization [employer] Address 75 [facility] 7t [place] [address] Care Team Providers Care Oil Field Laborer Name Role Phone Krys Myers MD Primary Care Provider [phone] Encounter Details Date Type Department Care Team (Latest Contact Info) Description 01/26/2025 Travel Social History Tobacco Use Types Packs/Day Years [...] Description 03/16/2025 11:30 AM EDT Clinical Support [facility] MEDICINE [address] [place] [address] Yancy Quezada, RN documented as of this encounter Visit Diagnoses Not on filedocumented in this encounter Additional Health Concerns Assessment Noted Time PHQ-9 Depression Total Score: 3 09/18/19 24 3:35 PM EDT documented as of this encounter Care Teams Oil Field Laborer Relationship Specialty Start Date End Date Krys Myers MD [address] [place] [address] PCP - General Family Medicine 04/06/20 documented as of this encounter
--- OUTSIDE RECORDS SUMMARY | 2025-01-26 15:27 | XMS_ITS | Encounter Summary ---
Author Organization [employer] Address 75 [facility] 7t [place] [address] Care Team Providers Care Transport Aide Name Role Phone Krys Myers MD Primary Care Provider Reason for Visit * Reason Comments Med Refill Encounter Details Date Type Department Care Team ([facility] Contact Info) Description 09/22/2024 Refill [facility] MEDICINE [address] [place], [place] [phone] Krys Myers MD 230 [place], [place] [phone] Social History Tobacco Use Types Packs/Day Years [...] Description 03/16/2025 11:30 AM EDT Clinical Support [facility] MEDICINE [address] [place] [address] Yancy Quezada RN documented as of this encounter Visit Diagnoses Not on filedocumented in this encounter Additional Health Concerns Assessment Noted Time PHQ-9 Depression Total Score: 3 09/18/19 24 3:35 PM EDT documented as of this encounter Care Teams Transport Aide Relationship Specialty Start Date End Date Krys Myers MD [address] [place] [id number] PCP - General Family Medicine 04/06/20 documented as of this encounter
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
--- OUTSIDE RECORDS SUMMARY | 2025-01-26 15:27 | XMS_ITS | Encounter Summary ---
Author Organization [employer] Address [address] [facility] 7t [place] [address] Care Team Providers Care Porcelain Technician Name Role Phone Krys Myers MD Primary Care Provider Reason for Visit * Reason Comments Med Refill Encounter Details Date Type Department Care Team ([facility] Contact Info) Description 07/29/2023 Refill [facility] MEDICINE [address] [place], [place] [phone] Waleska Shrestha DO [address] [place], [place] [phone] Recurrent major depressive disorder, remission status unspecified (CMS/HCC) Social History Tobacco Use Types Packs/Day [...] Description 03/16/2025 11:30 AM EDT Clinical Support [facility] MEDICINE [address] [place] [address] Yancy Quezada, [facility] documented as of this encounter Visit Diagnoses Diagnosis Recurrent major depressive disorder, remission status unspecified (CMS/[facility]) documented in this encounter Care Teams Porcelain Technician Relationship Specialty Start Date End Date Krys Myers MD [address] [place] [phone] PCP - General Family Medicine 04/06/20 documented as of this encounter
--- OUTSIDE RECORDS SUMMARY | 2025-01-26 15:27 | XMS_ITS | Encounter Summary ---
Author Organization [employer] Address [address] [facility] 7t [place] [address] Care Team Providers Care Physical Meteorologist Name Role Phone Krys Myers MD Primary Care Provider [phone] Reason for Visit * Reason Comments Med Refill Encounter Details Date Type Department Care Team ([facility] Contact Info) Description 10/28/2023 Refill [facility] MEDICINE [address] [place], [place] [phone] Krys Myers MD [address] [place], [place] [phone] Low back pain at multiple sites Social History Tobacco Use Types Packs/Day Years [...] Description 03/16/2025 11:30 AM EDT Clinical Support [facility] MEDICINE [address] [place] [phone] Yancy Quezada RN documented as of this encounter Visit Diagnoses Diagnosis Low back pain at multiple sites documented in this encounter Additional Health Concerns Assessment Noted Time PHQ-9 Depression Total Score: 3 09/18/19 24 3:35 PM EDT documented as of this encounter Care Teams Physical Meteorologist Relationship Specialty Start Date End Date Krys Myers MD [address] [place] [address] PCP - General Family Medicine 04/06/20 documented as of this encounter
--- OUTSIDE RECORDS SUMMARY | 2025-01-26 15:27 | XMS_ITS | Encounter Summary ---
Author Organization [employer] Address [address] [facility] 7t [place] [address] Care Team Providers Care Financial Analyst Name Role Phone Krys Myers MD Primary Care Provider [phone] Reason for Visit * Reason Onset Date Comments Med Refill 11/18/2024 Encounter Details Date Type Department Care Team ([facility] Contact Info) Description 11/18/2024 Telephone [facility] MEDICINE [address] [place], [place] [phone] Krys Myers MD [address] [place], [place] [phone] Med Refill Social History Tobacco Use Types [...] encounter Miscellaneous Notes * Telephone Encounter - Waleska Pritchett LPN - 11/18/2024 2:03 PM EDT Gabapentin has refills RN confirmed with pharmacy yesterday. Seroquel was sent to [facility] on 11/17/24 at patients request. Patient can call pharmacy and transfer medication to [facility]. * Telephone Encounter - Janell De La Garza - 11/18/2024 1:50 PM EDT TC from pt requesting medication refill. Medications needing refill : QUEtiapine (SEROquel) 400 MG tablet gabapentin (Neurontin) 800 MG tablet To be sent to: [facility]/pharmacy #[id number] [place], [place] - [address] [facility] [place] documented in this encounter Plan of Treatment Upcoming Encounters Date Type Department Care Team (Late st Contact Info) Description 03/16/2025 11:30 AM EDT Clinical Support [facility] MEDICINE [address] [place] [phone] Yancy Quezada RN documented as of this encounter Visit Diagnoses Not on filedocumented in this encounter Additional Health Concerns Assessment Noted Time PHQ-9 Depression Total Score: 3 09/18/19 24 3:35 PM EDT documented as of this encounter Care Teams Financial Analyst Relationship Specialty Start Date End Date Krys Myers MD [address] [place] [address] PCP - General Family Medicine 04/06/20 documented as of this encounter
--- OUTSIDE RECORDS SUMMARY | 2025-01-26 15:27 | XMS_ITS | Encounter Summary ---
Author Organization [employer] Address [address] [facility] 7t [place] [address] Care Team Providers Care Hat Blocker Name Role Phone Krys Myers MD Primary Care Provider [phone] Reason for Visit * Reason Onset Date Comments Results 09/03/2023 Encounter Details Date Type Department Care Team ([facility] Contact Info) Description 09/03/2023 Telephone [facility] MEDICINE [address] [place], [place] [phone] Krys Myers MD [address] [place], [place] [phone] Results Social History Tobacco Use Types Packs/Day Years Used Date Smoking Tobacco: Former Cigarettes Passive Smoke Exposure: Current Smokeless Tobacco: Never Housing Stability Answer Date [...] encounter Miscellaneous Notes * Telephone Encounter - Gabriela Valverde RN - 09/10/2023 2:27 PM EDT TC X1 to pt regarding XR results. LVM to return call to nurses. * Telephone Encounter - Ladonna Wellington MD - 09/10/2023 12:04 PM EDT Xray reviewed No acute fracture or dislocation. 2. Mild first metatarsophalangeal degenerative arthritis. 3. Plantar and dorsal calcaneal spurs. * Telephone Encounter - Gabriela Valverde RN - 09/06/2023 9:40 AM EDT Pt requesting XR results. Please review and advise. Result scanned into chart. * Telephone Encounter - Kaylynn Patrick - 09/06/2023 9:16 AM EDT Tc from pt daughter latisha HAWK returning call back for results. Please contact at [phone] * Telephone Encounter - Homer Noonan - 09/03/2023 2:59 PM EDT TC from pt requesting call back regarding Results. Type of results: X-ray Date when done: 09/01 Facility: [facility] documented in this encounter Plan of Treatment Upcoming Encounters Date Type Department Care Team (Late st Contact Info) Description 03/16/2025 11:30 AM EDT Clinical Support [facility] MEDICINE [address] [place] [address] Yancy Quezada RN documented as of this encounter Visit Diagnoses Not on filedocumented in this encounter Care Teams Hat Blocker Relationship Specialty Start Date End Date Krys Myers MD [address] [place] [address] PCP - General Family Medicine 04/06/20 documented as of this encounter
--- OUTSIDE RECORDS SUMMARY | 2025-01-26 15:27 | XMS_ITS | Encounter Summary ---
Author Organization [employer] Address [address] [facility] 7t [place] [address] Care Team Providers Care Superintendent Communications Name Role Phone Krys Myers MD Primary Care Provider [phone] Reason for Visit * Reason Onset Date Comments Med Refill 02/11/2024 Encounter Details Date Type Department Care Team ([facility] st Contact Info) Description 02/11/2024 Telephone [facility] MEDICINE [address] [place], [place] [phone] Krys Myers MD [address] [place] [address] Med Refill Social History Tobacco Use Types [...] Telephone Encounter - Waleska Pritchett LPN - 02/11/2024 1:24 PM EDT Medication was sent to [facility] #[id number] on 09/10/23 #90 with 3 refills. * Telephone Encounter - Fiona Cunningham - 02/11/2024 1:16 PM EDT TC from pt daughter requesting medication refill. Medications needing refill : QUEtiapine (SEROquel) 300 MG tablet To be sent to: [facility]/pharmacy #[id number] - [address] documented in this encounter Plan of Treatment Upcoming Encounters Date Type Department Care Team (Late st Contact Info) Description 03/16/2025 11:30 AM EDT Clinical Support [facility] MEDICINE [address] [place] [address] Yancy Quezada RN documented as of this encounter Visit Diagnoses Not on filedocumented in this encounter Additional Health Concerns Assessment Noted Time PHQ-9 Depression Total Score: 3 09/18/19 24 3:35 PM EDT documented as of this encounter Care Teams Superintendent Communications Relationship Specialty Start Date End Date Krys Myers MD [address] [place] [address] PCP - General Family Medicine 04/06/20 documented as of this encounter
--- OUTSIDE RECORDS SUMMARY | 2025-01-26 15:27 | XMS_ITS | Encounter Summary ---
Author Organization [employer] Address [address] [facility] 7[address] [place] [address] Care Team Providers Care Upper Leather Sorter Name Role Phone Krys Myers MD Primary Care Provider [phone] Reason for Visit * Reason Comments Med Refill Encounter Details Date Type Department Care Team ([facility] Contact Info) Description 01/03/2025 Refill [facility] MEDICINE [address] [place], [place] [phone] Krys Myers MD [address] [place], [place] [phone] Depression, psychotic (CMS/HCC) Social History Tobacco Use Types Packs/Day [...] Description 03/16/2025 11:30 AM EDT Clinical Support [facility] MEDICINE [address] [place] [phone] Yancy Quezada, RN documented as of this encounter Visit Diagnoses Diagnosis Depression, psychotic (CMS/HCC) Major depressive disorder, single episode, unspecified documented in this encounter Additional Health Concerns Assessment Noted Time PHQ-9 Depression Total Score: 3 09/18/19 24 3:35 PM EDT documented as of this encounter Care Teams Upper Leather Sorter Relationship Specialty Start Date End Date Krys Myers MD [address] [place] [phone] PCP - General Family Medicine 04/06/20 documented as of this encounter
--- OUTSIDE RECORDS SUMMARY | 2025-01-26 15:27 | XMS_ITS | Clinical Summary ---
Author Organization [employer] Address [address] [facility] [address] [place] [address] Care Team Providers Care Airborne Operations Superintendent Name Role Phone Krys Myers MD Primary Care Provider [phone] Allergies Active Allergy Reactions Criticality Noted Date Comments Iodine 09/28/2015 Methocarbamol Swelling 05/11/2022 Morphine 03/01/2022 Paroxetine Anxiety Low 05/11/2022 Shellfish Allergy High 05/04/2022 Other reaction(s): swelling Medications * This document contains information received from the source organization and may not represent a complete record from that organization. glucose blood (FREESTYLE LITE) test strip every 8 (eight) hours. 02/17/20 21 Active polyethylene glycol, PEG, 3350 (Miralax) 17 g packet Take 17 g by mouth Once per day. 28 packet 11 11/29/19 24 Active QUEtiapine (SEROquel) 50 MG tabletIndicatio ns:Depression, psychotic (CMS/HCC) Take 1 tablet (50 mg) by mouth Once daily as needed (depression). 30 tablet 3 02/26/20 24 Active metFORMIN XR (Glucophage-XR) 500 MG 24 hr tabletIndicatio ns:Type 2 diabetes mellitus with obesity (CMS/HCC) (CMS/HCC) Take 1 tablet (500 mg) by mouth 2 times daily. Do not crush, chew, or split. 180 tablet 3 04/17/20 24 Active pravastatin (Pravachol) 40 MG tabletIndicatio ns:Type 2 diabetes mellitus with obesity (CMS/HCC) (CMS/HCC) Take 1 tablet (40 mg) by mouth at bedtime. 90 tablet 3 04/17/20 24 Active gabapentin (Neurontin) 800 MG tabletIndicatio ns:Acute right ankle pain Take 1 tablet (800 mg) by mouth 3 times daily. 90 tablet 11 04/17/20 24 2024 Active Advair HFA 230-21 MCG/ACT inhalerIndicati ons:Moderate persistent asthma without complication INHALE 2 PUFFS IN THE MORNING AND AT BEDTIME 12 g 11 05/28/19 25 Active Ventolin HFA 108 (90 Base) MCG/ACT inhalerIndicati ons:Moderate persistent asthma without complication INHALE 2 PUFFS EVERY 4 (FOUR) HOURS IF NEEDED FOR WHEEZING OR SHORTNESS OF BREATH. 18 g 11 06/12/19 25 Active losartan (Cozaar) 25 MG tabletIndicatio ns:Benign hypertension TAKE 1 TABLET BY MOUTH EVERY DAY 90 tablet 3 07/24/19 25 Active benzonatate (Tessalon) 100 MG capsule TAKE 1 CAPSULE BY MOUTH 3 TIMES A DAY IF NEEDED FOR COUGH FOR UP TO 7 DAYS. DO NOT CRUSH OR CHEW. 06/11/19 25 Active predniSONE (Deltasone) 20 MG tablet Take 2 tablets by mouth Once per day. 05/28/19 25 Active predniSONE (Deltasone) 50 MG tablet Take 1 tablet by mouth Once per day. 06/11/19 25 Active albuterol (2.5 MG/3ML) 0.083% nebulizer solutionIndicat ions:Chronic pansinusitis USE 1 VIAL VIA NEBULIZER 3 TIMES A DAY 300 mL 4 09/22/19 25 Active Diclofenac Sodium 1 % gel APPLY 2 GRAM BY TOPICAL ROUTE 2-3 TIMES A DAY TO HANDS 100 g 3 09/29/19 25 Active QUEtiapine (SEROquel) 400 MG tabletIndicatio ns:Depression, psychotic (CMS/HCC) TAKE 1 TABLET BY MOUTH AT BEDTIME 30 tablet 3 11/18/19 25 Active QUEtiapine (SEROquel) 25 MG tablet Take 1 tablet (25 mg) by mouth in the morning. Take 25 mg by mouth in the morning. 30 tablet 3 11/26/19 25 Active naloxone (Narcan) 4 mg/0.1 mL nasal sprayIndication s:long term care social worker current use of opiate analgesic Administer 1 spray (4 mg) into affected nostril(s) if needed for opioid reversal. May repeat every 2-3 minutes if needed, alternating nostrils, until medical assistance becomes available. 2 each 12/10/19 25 2025 Active sennosides (Senokot) 8.6 MG tablet TAKE 1 TABLET BY MOUTH EVERY MORNING 90 tablet 3 12/24/19 25 Active omeprazole (PriLOSEC) [address] capsule Take 1 capsule (40 mg) by mouth before breakfast. Do not crush or chew. 30 capsule 11 12/24/19 25 2025 Active lidocaine (Xylocaine) 5 % ointment APPLY TO AFFECTED AREA TWICE A DAY 50 g 6 01/27/20 25 Active EPINEPHrine (Epipen) 0.3 MG/0.3ML injection syringeIndicati ons:Allergy to shellfish INJECT 0.3 ML (0.3 MG) DIRECTED 1 (ONE) TIME FOR 1 DOSE. 2 each 1 01/27/20 25 Active cyclobenzaprine (Flexeril) 5 MG tablet TAKE 1 TABLET BY MOUTH 3 TIMES DAILY. 30 tablet 3 01/27/20 25 Active traMADol (Ultram) 50 MG tabletIndicatio ns:Bilateral hip pain,Spinal stenosis of lumbar region without neurogenic claudication Take 1 tablet (50 mg) by mouth every 12 (twelve) hours if needed for severe pain for up to 28 days. 56 tablet 01/27/20 25 2024 Active predniSONE (Deltasone) 20 MG tablet Take 2 tablets (40 mg) by mouth Once per day for 5 days. 10 tablet 01/27/20 25 2024 Active cyclobenzaprine (Flexeril) 5 MG tablet TAKE 1 TABLET BY MOUTH 3 TIMES DAILY. 30 tablet 3 06/12/19 25 2024 Discontinued lidocaine (Xylocaine) 5 % ointment Apply topically 2 times daily. to affected area 50 g 3 09/22/19 25 2024 Discontinued EPINEPHrine (Epipen) 0.3 MG/0.3ML injection syringeIndicati ons:Allergy to shellfish INJECT 0.3 ML (0.3 MG) DIRECTED 1 (ONE) TIME FOR 1 DOSE. 0.3 mL 09/30/19 25 2024 Discontinued traMADol (Ultram) 50 MG tabletIndicatio ns:Bilateral hip pain,Spinal stenosis of lumbar region without neurogenic claudication Take 1 tablet (50 mg) by mouth every 12 (twelve) hours if needed for severe pain for up to 28 days. Do not start before December 24, 2024. 56 tablet 12/25/19 25 2024 Discontinued(R eorder (will not trigger notification to Pharmacy)) Active Problems Problem Noted Date Diagnosed Date Bilateral hip pain 10/27/2024 Assessment & Plan (11/03/2024 2:44 PM EDT): Pt attended and participated in chronic pain group today - good engagement with group model of care - continue to use combination of non-pharmacological modalities to address pain - followup in one week for ongoing care long-term current use of opiate analgesic 2024 Overview (08/24/2024): Dx: Low back pain/spinal stenosis, R akle pain Rx: Tramadol 50mg BID Last HELICOPTER DISPATCHER agreement: pending appointment Tier II (visit every 3 months) Additional considerations: prior dependence issues with morphine 200 eq daily Timeline: PTSD (post-traumatic stress disorder) 11/19/2023 Assessment & Plan (02/10/2024 5:39 PM EDT): Discussed with the pt that I cannot increase her psychiatric medication in walk- in clinic. -will reach out to Dr. Pool(pt's PCP) tomorrow to then reach out to pt. -will also have behavioral health call the pt. Assessment & Plan (11/20/2023 8:28 AM EDT): PROGRESS NOTE: ID: Latisha is a 58 y.o. Decline to answer choose not to disclose- identified cis-female with MH services including OP Psychotherapy psychopharmacology No previous hx of MH dx or sx who presents for PTSD (Post-Traumatic Stress Disorder). Latisha lives alone. Has extensive Hx of trauma in childhood and adulthood. She is engaged with the Pain support group. Latisha reported Hx of Schizophrenia in her family. During IBH Consult Latisha presenting with Flight of ideas and Other: delusions, hallucinations, disorganized speech, flight of ideas, racing thoughts, grandiosity and Intrusive trauma memories and thoughts, Hypervigilance, Avoidance of trauma reminders/triggers, Increased startle response, Fear and distrust in relationships, Withdrawn, and Feelings of impending doom; for a period of 0-6 mo, for some symptoms in the context of comorbidity, recent ankle injury, stress relationship with mother, lack of OP services. PLAN: New/Additional Services needed PCP management Off-site services for Behavioral Health Integration Plan External OP therapy referral and OP psychiatry Referral Patient Self Plan Patient to reach out to [facility] team as needed, Comply with medication , Patient to engage in OP therapy , and Patient to reach out to [facility] as needed Other schizophrenia 11/19/2023 Assessment & Plan (02/28/2024 10:08 AM EDT): Will prescribe Seroquel at 300mg once a day and 150mg at other time DO NOT INCREASE medication without talking to a medical provider STAT psychiatry referral placed Contracts for safety for SI/HI with me and family members Chronic pain of right ankle 09/20/2023 Assessment & Plan (02/28/2024 10:09 AM EDT): Needs to book with ortho, referral given and number highlighted May take Tramadol 50mg up to four times daily until ortho appointment Assessment & Plan (09/20/2023 6:12 AM EDT): Will obtain MRI due to non weight bearing Suspect ligamentous injury at this point with location and bruising Will give short supply of Tramadol 50mg every 8 hours, Pt aware of the risks of opioid medication and not mixing with other medications or driving while she is taking the medication Referral to ortho as well Class 2 obesity 09/17/2023 Pain in both hands 05/02/2023 Allergy to shellfish 05/02/2023 Constipation 05/11/2022 Assessment & Plan (05/11/2022 2:47 PM EST): Patient requested referral for GI, referral placed Obstructive sleep apnea syndrome 05/04/2022 Assessment & Plan (12/05/2023 9:50 AM EDT): Severe OSVALDO, cannot tolerate CPAP Untreated OSVALDO is affecting her life with deleterious blood pressure, weight, and mood effects Will refer to sleep medicine for consideration of BiPap or other treatment modalities Assessment & Plan (05/02/2023 9:06 AM EST): Severe OSVALDO, cannot tolerate CPAP Refer to ENT to consider Inspire surgery Elevated LFTs 05/04/2022 Type 2 diabetes mellitus with obesity ([facility]/HCC) 10/27/2018 Assessment & Plan (05/02/2023 9:04 AM EST): Well controlled on Metformin monotherapy Tenosynovitis of left wrist 03/20/2018 Rectal pain 03/20/2018 Abscess 01/14/2018 Spinal stenosis of lumbar region 12/18/2017 Assessment & Plan (08/24/2024 12:48 PM EDT): Pt attended and participated in chronic pain group today - good engagement with group model of care - continue to use combination of non-pharmacological modalities to address pain - followup in one month for theme nutrition Assessment & Plan (08/18/2024 1:40 PM EDT): Pt attended and participated in chronic pain group today - good engagement with group model of care - continue to use combination of non-pharmacological modalities to address pain - followup in one month for theme nutrition Moderate persistent asthma 05/03/2016 Assessment & Plan (05/02/2023 9:05 AM EST): Continue Advair daily and CAROLYN prn Low back pain at multiple sites 05/03/2016 Assessment & Plan (08/09/2022 3:27 PM EDT): Pt is here due tobeing given 21 Oxycodone pills instead of 80 . -07/26/2022 her UTOX was negative for Oxycodone. -Pt overdue come for random UTOX but was not reachable on multiple occasion. -Pt given cup today for UTOX and told she needed to produce urine to continue opiate medicaion . -Pt did not produced urine. Pt was given water and told she was able to stay as long as she needed. Pt attempted to leave with Urine cup. Advised she can not leave and return with urine cup. Pt appeared was frustrated and returned cup to [place] and left. -no medication written. Chronic pansinusitis 05/03/2016 Benign hypertension 05/03/2016 Assessment & Plan (12/05/2023 9:47 AM EDT): Continue Losartan 25mg daily Monitor BP at home Assessment & Plan (05/02/2023 9:05 AM EST): Continue Losartan 25mg daily Monitor BP at home Labs today Resolved Problems Problem Noted Date Diagnosed Date Resolved Date Nasal congestion 05/11/2022 11/03/2024 Assessment & Plan (05/11/2022 2:47 PM EST): Likely rhinosinusitis, at this moment given duration will send antibiotics. She also has some wheezing on exam will send steroids. Encounters Date Type Department Care Team Description 01/26/2025 2:00 PM EDT Office Visit [facility] [address] [place] [address] Name, MD James Neck pain, musculoskeletal (Primary Dx); Acute pain of right shoulder; Toe joint pain, right; Unspecified fracture of right toe(s), initial encounter for closed fracture 01/26/2025 Travel 01/26/2025 Refill [facility] [address] [place] [address] Krys Myers MD Bilateral hip pain; Spinal stenosis of lumbar region without neurogenic claudication 01/23/2025 Refill [facility] [address] [place] [address] Krsy Myers MD Allergy to shellfish 01/19/2025 Telephone [facility] [address] [place] [address] Krys Myers MD Med Refill 01/03/2025 Refill [facility] [address] [place] [address] Krys Myers MD Depression, psychotic ([facility]/HCC) 12/28/2024 Travel 12/23/2024 Refill [facility] [address] [place] [address] Krys Myers MD 12/23/2024 Refill [facility] [address] [place] [address] Krys Myers MD 12/23/2024 Refill [facility] [address] [place] [address] Krys Myers MD Bilateral hip pain; Spinal stenosis of lumbar region without neurogenic claudication 12/14/2024 Travel 12/09/2024 11:30 AM EDT Clinical Support [facility] [address] [place] [address] Yancy Quezada, [facility] long term care social worker current use of opiate analgesic (Primary Dx) 12/09/2024 Refill [facility] [address] [place] [address] Yancy Quezada RN long-term current use of opiate analgesic (Primary Dx) 12/09/2024 Travel 12/07/2024 Travel 11/25/2024 Refill [facility] [address] [place] [address] Krys Myers MD 11/25/2024 Telephone [facility] [address] [place] [address] Krys Myers MD Med Refill 11/24/2024 Refill [facility] [address] [place] [address] Krys Myers MD Bilateral hip pain; Spinal stenosis of lumbar region without neurogenic claudication 11/18/2024 Telephone [facility] [address] [place] [address] Krys Myers MD Med Refill 11/17/2024 Telephone [facility] [address] [place] [address] Krys Myers MD Med Refill 11/17/2024 Refill [facility] [address] [place] [address] Krys Myers MD Depression, psychotic ([facility]/HCC) 11/17/2024 Refill [facility] [address] [place] [address] Krys Myers MD Depression, psychotic ([facility]/HCC) 11/17/2024 Telephone [facility] [address] [place] [address] Krys Myers MD telephone call 11/10/2024 Travel 11/02/2024 11:00 AM EDT Office Visit [facility] [address] [place] [address] Krys Myers MD Bilateral primary osteoarthritis of hip (Primary Dx); long term care social worker current use of opiate analgesic; Bilateral hip pain 11/02/2024 Travel 10/28/2024 Telephone [facility] [address] [place] [phone] Krys Myers MD Results 10/28/2024 Travel 10/26/2024 11:00 AM EDT Office Visit [facility] [address] [place] [address] Krys Myers MD Bilateral hip pain (Primary Dx); Spinal stenosis of lumbar region without neurogenic claudication; Moderate persistent asthma without complication; Type 2 diabetes mellitus with obesity (CMS/HCC) ([facility]/HCC); Other schizophrenia ([facility]/HCC) 10/26/[address] [address] Krys Myers MD Appointment Request; HELICOPTER DISPATCHER Tier 2 10/26/2024 Travel from Last 3 Months Immunizations Immunization Administration Dates Next Due Pfizer Covid-19 Vaccine 12+ 10/03/2020, Tdap 02/08/2022 Social History Tobacco Use Types Packs/Day Years [...] not to disclose 2021 10:14 AM EDT Last Filed Vital Signs Vital Sign Reading Time Taken Comments Blood Pressure 144/93 01/26/2025 1:33 PM EDT Pulse 104 01/26/2025 1:33 PM EDT Temperature 36.8 C (98.2 F) 01/26/2025 1:33 PM EDT Respiratory Rate 18 01/26/2025 1:33 PM EDT Oxygen Saturation 98% 01/26/2025 1:33 PM EDT Inhaled Oxygen Concentration - - Weight 122 kg (269 lb) 01/26/2025 1:33 PM EDT Height 175.3 cm (5' 9 ) 04/17/2024 11:04 AM EST Body Mass Index 39.72 04/17/2024 11:04 AM EST Plan of Treatment Upcoming Encounters Date Type Department Care Team (Late st Contact Info) Description 03/16/2025 11:30 AM EDT Clinical Support [facility] [address] [place] [id number] Yancy Quezada, [facility] Health Maintenance Due Date Last Done Comments CT Colonography 1966 Colonoscopy 1966 Colorectal Cancer Screening 1966 FIT DNA/Cologuard 1966 FIT 1966 FOBT 1966 Sigmoidoscopy 1966 Disability Screening 1966 Eye Exam 1976 Alcohol/Substance Use Screening 1978 Hepatitis B Vaccines (1 of 3 - 19+ 3-dose series) 1985 Pneumococcal Vaccine: 50+ Years (1 of 2 - PCV) 1985 Zoster Vaccines (1 of 2) 2016 Mammogram 11/26/2021 11/27/2019, 07/0 07/2018, 12/26/2017 Lipid Panel 04/29/2024 04/29/2023, 09/22/2021 SDOH Screening 04/29/2024 04/29/2023 Diabetes: Hemoglobin A1C 05/31/2024 024, 04/29/2023, 09/22/2021, Additional history exists Diabetes: Foot Exam 09/01/2024 09/02/2023 Depression Screening 09/17/2024 09/18/2023, 09/18/19 Diabetes: Urine Protein Screening 11/28/2024 11/29/2023, 09/26/2021 COVID-19 Vaccine ( season) 2025 10/03/2020, 09/08/2020 Influenza Vaccine (#1) 2025 Tobacco Screening 01/26/2026 01/26/2025 Cervical Cancer Screening 04/17/2029 HPV/Cotest 04/17/2029 04/17/2024 Pap Smear 04/17/2029 04/17/2024, 05/15/2016 DTaP/Tdap/Td Vaccines (2 - Td or Tdap) 02/09/2032 02/08/2022 RSV Patients and Patients Aged 60 years or older (1 - 1-dose 75+ series) 2041 HIV Screening Completed 04/17/2024 Hepatitis C Screening [...] patient's age to complete this topic Meningococcal Vaccine Aged Out No lawrence arnav eligible based on patient's age to complete this topic RSV under 20 months Aged Out No longe r eligible based on patient's age to complete this topic Rotavirus Vaccines Aged Out No longer eligible based on patient's age to complete this topic Procedures Procedure Name Priority Date/Time Associated Diagnosis Comments POCT FABIÁN-14 URINE DRUG SCREEN Routine 12/09/2024 11:30 AM EDT long-term current use of opiate analgesic XR HIPS BILATERAL 3 OR 4 VIEWS WITH OR WITHOUT PELVIS Routine 10/26/2024 12:41 PM EDT Bilateral hip pain HEPATITIS C AB W/REFL TO HCV RNA, QN, PCR Routine 04/17/2024 12:19 PM EST Screening examination for STI HIV 1/2 ANTIGEN/ANTIBODY, FOURTH GENERATION W/RFL Routine 04/17/2024 12:19 PM EST Screening examination for STI PAP SMEAR Routine 04/17/2024 11:37 AM EST HPV MRNA E6/E7 REFLEX TO HPV 16, 18/45 Routine 04/17/2024 12:00 AM EST ALBUMIN, RANDOM URINE W/CREATININE Routine 11/29/2023 12:33 PM EDT Benign hypertension HEMOGLOBIN A1C Routine 11/29/2023 12:33 PM EDT Benign hypertension LIPID PANEL, STANDARD Routine 04/29/2023 11:16 AM EST Diabetes mellitus type 2 in obese ([facility]/HCC) HM MAMMOGRAPHY Routine 11/27/2019 from Last 3 Months or Most Recently Relevant to Health Maintenance Results * POCT FABIÁN-14 Urine Drug Screen (12/09/2024 11:30 AM EDT) THC Positive Negative Cocaine Screen, Urine Negative Negative Opiate Screen, Urine Negative Negative Methamphetamine Screen Urine Negative Negative Amphetamine Screen, Urine Negative Negative Benzodiazepines Screen, Urine Negative Negative Barbiturate Screen, Urine Negative Negative Methadone Screen, Urine Negative Negative Buprenophine Screen, Urine Negative Negative TCA, Urine Positive Negative MDMA Urine Negative Negative ng/mL Oxycodone Screen, Urine Negative Negative Phencyclidine (PCP), Urine Negative Negative Propoxyphene, Urine Negative Negative Fentanyl, Urine Negative Negative Urine Urine specimen obtained by clean catch procedure / Unknown 12/09/2024 11:30 AM EDT Narrative Yancy Quezada RN - 12/09/2024 11:30 AM EDT UTOX cup Lot#[id number] Exp. 03/02/26 Internal Pass Control Krys Myers MD POINT OF CARE TEST ENTER/EDIT ORDERABLES Final Result * XR Hips Bilateral 3 or 4 Views with or without Pelvis (10/26/2024 12:41 PM EDT) Anatomical Region Laterality Modality Lower Extremities, Hip Bilateral Radiograp hic Imaging 10/26/2024 12:4 1 PM EDT Narrative 10/26/2024 1:30 PM EDT [facility] [address] [place] [address] XRay Report Signed Patient: Latisha Lr MR#: [id number] : 1965 Acct:[id number] Age/Sex: 59 / F ADM Date: 10/26/24 Loc: HO.HHCX Attending Dr: Krys Myers MD Ordering Physician: Krys Myers Date of Service: 10/26/24 Procedure(s): XR hips OLEG min 3V Accession Number(s): [id number] cc: Krys Myers EXAMINATION: XR HIP 2 OR MORE VIEWS BILATERAL HISTORY: trouble with walking COMPARISON: Comparison is made with the prior examination of the pelvis and left hip dated 08/11/2019. FINDINGS: Two AP views of the pelvis and two views of each hip are submitted. Osseous mineralization is normal. There is no fracture or dislocation. There is mild narrowing of both hip joint spaces. There is also mild degenerative change of the sacroiliac joints. The soft tissues are unremarkable. XR/XR hips OLEG min 3V IMPRESSION: Mild narrowing of both hip joints. Electronically signed by: Judson Moore MD 10/26/2024 01:27 PM EDT Dictated By: Judson Moore MD Signed By: <Electronically signed by Judson Moore MD in OV> 10/26/24 1327 DD/ 1241 TD/TT: 10/26/24 1300 [employer] Shed Worker: Procedure Note Donotuseinterpreter, Image - 10/26/2024 [facility] [address] [place] [address] XRay Report Signed Patient: Latisha Lr MMR#: [id number] : 1965Acct:[id number] Age/Sex: 59 / FADM Date: 10/26/24 Loc: HO.HHCX Attending Dr: Krys Myers MD Ordering Physician: Krys Myers Date of Service: 10/26/24 Procedure(s): XR hips OLEG min 3V Accession Number(s): [id number] cc: Krys Myers EXAMINATION: XR HIP 2 OR MORE VIEWS BILATERAL HISTORY: trouble with walking COMPARISON: Comparison is made with the prior examination of the pelvis and left hip dated 08/11/2019. FINDINGS: Two AP views of the pelvis and two views of each hip are submitted. Osseous mineralization is normal. There is no fracture or dislocation. There is mild narrowing of both hip joint spaces. There is also mild degenerative change of the sacroiliac joints. The soft tissues are unremarkable. XR/XR hips OLEG min 3V IMPRESSION: Mild narrowing of both hip joints. Electronically signed by: Judson Moore MD 10/26/2024 01:27 PM EDT Dictated By: Judson Moore MD Signed By: <Electronically signed by Judson Moore MD in OV> 10/26/24 1327 DD/ 1241 TD/TT: 10/26/24 1300 She[employer] Shed Worker: Krys Myers MD IMG XR PROCEDURES Edited Resul t - Final * Hepatitis C Antibody with Reflex to HCV, RNA, Quantitative, Real-Time PCR (04/17/2024 12:19 PM EST) Hepatitis C Antibody Nonreactive Nonreactive [facility] Comment:Antibodies to HCV no t detected; does not exclude early acuteHCV infection. Blood Venous blood specimen / Unknown 04/17/2024 12:19 PM EST 04/17/2024 1:03 PM EST Krys Myers MD LAB BLOOD ORDERABLES Final Res ult Performing Organization Address [facility] Co de Phone Number [facility] [address] [place] [address] [phone] * HIV-1/2 Antigen and Antibodies, Fourth Generation, with Reflexes (04/17/2024 12:19 PM EST) [facility] HIV AB/AG Nonreactive Nonreactive [facility] Comment:HIV-1 p24 Ag and/or HIV-1/HIV-2 Ab not detected.A test result that is nonreactive does not exclude thepossibility of exposure to or infection with HIV-1 and/orHIV-2. Nonreactive results in this assay for individualswith prior exposure to HIV-1 and/or HIV-2 may be due toantigen and antibody levels that are below the limit ofdetection of this assay.The IRIS-RFID HIV Ag/Ab Combo assay result andsupplemental assay results should be interpreted inconjunction with the patient's clinical presentation,history and other laboratory results. If the results areinconsistent with clinical evidence, additional testing issuggested to confirm the result. Blood Venous blood specimen / Unknown 04/17/2024 12:19 PM EST 04/17/2024 1:03 PM EST Krys Myers MD LAB BLOOD ORDERABLES Final Res ult Performing Organization Address [facility] Co de Phone Number [facility] [address] [place] [address] [phone] * Pap Smear (04/17/2024 11:37 AM EST) 04/17/2024 11:3 7 AM EST 04/20/2024 10:00 AM EST Narrative [facility] - 04/24/2024 12:57 PM EST ----- ------- Name: Latisha Lr Age/Sex: 58/F : 1965 Unit#: [id number] Attend Dr: Krys Myers Re04/17/24 Status: DEP REF Location: [facility] Disch: ----- ------- SPEC : [id number] RECD: 04/20/24-999 STATUS: MARK MONACO NUM: [id number] CANDE: 04/17/24-[address] [facility] [address]: Krys Myers ENTERED: 04/20/24-1014 SP TYPE: Pap Smr OT DR: ORDERED: Pap Smear Interpretation Satisfactory for evaluation. Negative for intraepithelial lesion or malignancy. HPV High Risk: Negative HPV Genotyping 16: Negative HPV Genotyping 18: Negative Clinical Information LMP: Postmenopausal Previous PAP test: Unknown date, normal per pt Material Received ThinPrep-Cervical ----- ------- Signed (signature on file) ZULEIMA Rogers (ASCP) 04/24/24 1257 ----- ------- END OF REPORT Krys Myers MD LAB CYTOLOGY ORDERABLES Final Result Performing Organization Address [facility] de Phone Number [facility] [address] [place] [phone] * HPV mRNA E6/E7 w/Reflex to HPV Genotypes 16, 18/45 (04/17/2024 12:00 AM EST) Gokul Schulz MD LAB CYTOLOGY ORDERABLES F inal Result Performing Organization Address [facility] de Phone Number [facility] [address] [place] [phone] * Albumin, Random Urine W/Creatinine (11/29/2023 12:33 PM EDT) Creatinine, Urine 92.25 mg/dL [facility] Microalbumin Urine <5.0 mg/L [facility] Microalbum Creatinine Ratio Ur TNP <30 ug/mg cr [facility] Comment:Unable to calculate albumin/creatinine ratio due to lowmicroalbumin or creatinine result. Urine (Urine, Random) 11/29/2023 12:33 PM EDT 11/29/2023 1:06 PM EDT Krys Myers MD LAB URINE ORDERABLES Final Res ult Performing Organization Address [facility] de Phone Number [facility] [address] [place] [phone] * Hemoglobin A1c (11/29/2023 12:33 PM EDT) Hemoglobin A1c 5.5 <6.0 % [facility] Comment:Hemoglobin A1C Refer ence Range Adults: 4.8 - 6.0 % Non diabetic: < 6.0 % Goal: < 7.0 %Additional Action Suggested: > 8.0 %Note: Hemoglobin A1c results are invalid for patients with abnormal amounts of HbF. Blood transfusions may impact the HbA1c concentration in the patient sample. Estimated Average Glucose 111 mg/dL [facility] Comment:eAG = Estimated ave rage glucose which is %A1C expressed asaverage glucose, using the formula of the Y6Q-QziclpiIstmfzs Glucose study (ADAG), Diabetes Care, Vol.31,#8,Dec. 2007 Blood Venous blood specimen / Unknown 11/29/2023 12:33 PM EDT 11/29/2023 1:07 PM EDT us Krys Myers MD LAB BLOOD ORDERABLES Final Res ult [facility] [address] [place] [phone] * (ABNORMAL) Lipid Panel, Standard (04/29/2023 11:16 AM EST) Triglycerides 188(H) <150 mg/dL [facility] Comment:Desirable Triglyceri de: less than 150 mg/dLBorderline High Triglyceride 150-199 mg/dLHigh Triglyceride: 200-499 mg/dLVery High Triglyceride: greater than or equal to 5OO mg/dL Cholesterol 183 <200 mg/dL [facility] Comment:Desirable Cholestero l: less than 200 mg/dLBorderline High Cholesterol: 200-239 mg/dLHigh Cholesterol: greater than 239 mg/dL LDL Cholesterol Calculated 109(H) <100 mg/dL [facility] Comment:Desirable LDL: less than 100 mg/dLNear Optimal/Above Optimal LDL: 110- 129 mg/dLBorderline High LDL: 130-159 mg/dLHigh LDL: 160-189 mg/dLVery High LDL: greater than or equal to 190 mg/dL HDL Cholesterol 37(L) >40 mg/dL [facility] Comment:Desirable HDL: great er than 40 mg/dL Note: This HDL assay may give artificially low results in patients with liver disease. Blood Venous blood specimen / Unknown 04/29/2023 11:16 AM EST 04/29/2023 1:26 PM EST Krys Myers MD LAB BLOOD ORDERABLES Final Res ult [facility] [address] [place] [phone] * Mammography (11/27/2019) Mammogram Performed Anatomical Region Laterality Modality Other us Historical Provider HEALTH MAINTENANCE Final Result from Last 3 Months or Most Recently Relevant to Health Maintenance Insurance [employer]3 Care Teams Airborne Operations Superintendent Relationship Specialty Start Date End Date Krys Myers MD [address] [place] [phone] PCP - General Family Medicine 04/06/20
--- OUTSIDE RECORDS SUMMARY | 2025-01-26 15:27 | XMS_ITS | Encounter Summary ---
Author Organization [employer] Address [address] [facility] 7t [place] [address] Care Team Providers Care Rack Worker Name Role Phone Krys Myers MD Primary Care Provider [phone] Reason for Visit * Reason Onset Date Comments Med Refill 07/29/2023 Encounter Details Date Type Department Care Team ([facility] Contact Info) Description 07/29/2023 Telephone [facility] [address] [place], [place] [phone] Krys Myers MD [address] [place], [place] [phone] Med Refill Social History Tobacco Use Types [...] Telephone Encounter - Waleska Pritchett LPN - 07/29/2023 3:42 PM EST Medication pended to PCP. * Telephone Encounter - Kyle Naranjo - 07/29/2023 3:38 PM EST TC from pt requesting medication refill. Medications needing refill : gabapentin (Neurontin) 800 MG tablet To be sent to: [facility]/pharmacy #[id number] [place], [place] - [address] [facility] documented in this encounter Plan of Treatment Upcoming Encounters Date Type Department Care Team (Late st Contact Info) Description 03/16/2025 11:30 AM EDT Clinical Support [facility] [address] [place] [address] Yancy Quezada, [facility] documented as of this encounter Visit Diagnoses Not on filedocumented in this encounter Care Teams Rack Worker Relationship Specialty Start Date End Date Krys Myers MD [address] [place] [address] PCP - General Family Medicine 04/06/20 documented as of this encounter
--- OUTSIDE RECORDS SUMMARY | 2025-01-26 15:27 | XMS_ITS | Encounter Summary ---
Author Organization [employer] Address [address] [facility] 7t [place] [address] Care Team Providers Care Head Custodian Name Role Phone Krys Myers MD Primary Care Provider Reason for Visit * Reason Comments Med Refill Encounter Details Date Type Department Care Team ([facility] Contact Info) Description 07/08/2023 Refill [facility] [address] [place], [place] [phone] Waleska Shrestha DO 230 [place], [place] [phone] Recurrent major depressive disorder, remission status unspecified (CMS/HCC) Social History Tobacco Use Types Packs/Day Years Used Date Smoking Tobacco: Former Cigarettes Smokeless Tobacco: Never Housing Stability Answer Date Recorded What is your housing situation today? I have eidth [place] 04/29/[address] you [...] Description 03/16/2025 11:30 AM EDT Clinical Support [facility] [address] [place] [address] Yancy Quezada, [facility] documented as of this encounter Visit Diagnoses Diagnosis Recurrent major depressive disorder, remission status unspecified (CMS/[facility]) documented in this encounter Care Teams Head Custodian Relationship Specialty Start Date End Date Krys Myers MD [address] [place] [phone] PCP - General Family Medicine 04/06/20 documented as of this encounter
--- OUTSIDE RECORDS SUMMARY | 2025-01-26 15:27 | XMS_ITS | Encounter Summary ---
Author Organization [employer] Address [address] [facility] 7t [place] [address] Care Team Providers Care Breaker Machine Tender Name Role Phone Krys Myers MD Primary Care Provider [phone] Encounter Details Date Type Department Care Team ([facility] st Contact Info) Description 10/29/2023 Orders Only [facility] 230 [place], [place] [phone] Krys Myers MD [address] [place], [place] [phone] Social History Tobacco Use Types Packs/Day Years [...] 11:30 AM EDT Clinical Support [facility] [address] [place] [phone] Yancy Quezada RN documented as of this encounter Visit Diagnoses Not on filedocumented in this encounter Additional Health Concerns Assessment Noted Time PHQ-9 Depression Total Score: 3 09/18/19 24 3:35 PM EDT documented as of this encounter Care Teams Breaker Machine Tender Relationship Specialty Start Date End Date Krys Myers MD [address] [place] [address] PCP - General Family Medicine 04/06/20 documented as of this encounter
--- OUTSIDE RECORDS SUMMARY | 2025-01-26 15:27 | XMS_ITS | Encounter Summary ---
Author Organization [employer] Address [address] [facility] 7t [place] [address] Care Team Providers Care Director Medicare Sales Name Role Phone Krys Myers MD Primary Care Provider [phone] Reason for Visit * Reason Onset Date Comments Med Refill 01/26/2025 Encounter Details Date Type Department Care Team (Late st Contact Info) Description 01/26/2025 Refill [facility] 230 [place], [place] [phone] Krys Myers MD 230 [place], [place] [phone] Bilateral hip pain; Spinal stenosis of lumbar region without neurogenic claudication Social History Tobacco Use Types Packs/Day Years [...] encounter Miscellaneous Notes * Telephone Encounter - Irasema Avina - 01/26/2025 9:57 AM EDT TC from pt requesting medication refill. Medications needing refill : traMADol (Ultram) 50 MG tablet To be sent to: [facility] - [place], [place] - [address] [place] [address] documented in this encounter Plan of Treatment Upcoming Encounters Date Type Department Care Team (Late st Contact Info) Description 03/16/2025 11:30 AM EDT Clinical Support [facility] [address] [place] [phone] Yancy Quezada RN documented as of this encounter Visit Diagnoses Diagnosis Bilateral hip pain Pain in joint, pelvic region and thigh Spinal stenosis of lumbar region without neurogenic claudication documented in this encounter Additional Health Concerns Assessment Noted Time PHQ-9 Depression Total Score: 3 09/18/19 24 3:35 PM EDT documented as of this encounter Care Teams Director Medicare Sales Relationship Specialty Start Date End Date Krys Myers MD [address] [place] [phone] PCP - General Family Medicine 04/06/20 documented as of this encounter
--- OUTSIDE RECORDS SUMMARY | 2025-01-26 15:27 | XMS_ITS | Encounter Summary ---
Author Organization [employer] Address 75 [facility] 7t [place] [address] Care Team Providers Care Cotton Converter Name Role Phone Krys Myers MD Primary Care Provider [phone] Reason for Visit * Reason Comments Med Refill Encounter Details Date Type Department Care Team ([facility] Contact Info) Description 07/29/2023 Refill [facility] 230 [place], [place] [phone] Name, MD James 230 [place], [place] [phone] Recurrent major depressive disorder, remission status unspecified (CMS/[facility]) Social History Tobacco Use Types Packs/Day Years [...] Description 03/16/2025 11:30 AM EDT Clinical Support [facility] 230 [place] [address] Yancy Quezada, [facility] documented as of this encounter Visit Diagnoses Diagnosis Recurrent major depressive disorder, remission status unspecified (CMS/[facility]) documented in this encounter Care Teams Cotton Converter Relationship Specialty Start Date End Date Krys Myers MD [address] [place] [phone] PCP - General Family Medicine 04/06/20 documented as of this encounter
--- OUTSIDE RECORDS SUMMARY | 2025-01-26 15:27 | XMS_ITS | Encounter Summary ---
Author Organization [employer] Address [address] [facility] 7t [place] [address] Care Team Providers Care Service Member Name Role Phone Krys Myers MD Primary Care Provider [phone] Reason for Visit * Reason Onset Date Comments Med Refill 11/17/2024 Encounter Details Date Type Department Care Team ([facility] st Contact Info) Description 11/17/2024 Telephone [facility] 230 [place], [place] [phone] Krys Myers MD 230 [place], [place] [phone] Med Refill Social History Tobacco Use Types [...] Telephone Encounter - Yancy Quezada RN - 11/18/2024 8:02 AM EDT Per Mery, Tramadol was last picked up 10/27/24 for a 30 day supply. Refill due 11/26/24. Will forward request to PCP on 11/24/24. * Telephone Encounter - Una Fitzgerald - 11/17/2024 3:02 PM EDT TC from pt requesting medication refill. Medications needing refill : - traMADol (Ultram) 50 MG tablet To be sent to: - [facility] - [place], [place] - [address] [place] [address] documented in this encounter Plan of Treatment Upcoming Encounters Date Type Department Care Team (Late st Contact Info) Description 03/16/2025 11:30 AM EDT Clinical Support [facility] [address] [place] [address] Yancy Quezada, RN documented as of this encounter Visit Diagnoses Not on filedocumented in this encounter Additional Health Concerns Assessment Noted Time PHQ-9 Depression Total Score: 3 09/18/19 24 3:35 PM EDT documented as of this encounter Care Teams Service Member Relationship Specialty Start Date End Date Krys Myers MD [address] [place] [phone] PCP - General Family Medicine 04/06/20 documented as of this encounter
--- OUTSIDE RECORDS SUMMARY | 2025-01-26 15:27 | XMS_ITS | Encounter Summary ---
Author Organization [employer] Address [address] [facility] 7t [place] [address] Care Team Providers Care Counter Dish Carrier Name Role Phone Krys Myers MD Primary Care Provider [phone] Reason for Visit * Reason Onset Date Comments Med Refill 11/17/2024 Encounter Details Date Type Department Care Team ([facility] st Contact Info) Description 11/17/2024 Refill [facility] 230 [place], [place] [phone] Krys Myers MD [address] [place], [place] [phone] Depression, psychotic (CMS/HCC) Social History Tobacco Use [...] Telephone Encounter - Waleska Pritchett LPN - 11/17/2024 3:04 PM EDT Losartan has refills patient can call [facility] and transfer medication. Last seen 11/02/24. PCP VAC. * Telephone Encounter - Una Fitzgerald - 11/17/2024 2:59 PM EDT TC from pt requesting medication refill. Medications needing refill : - losartan (Cozaar) 25 MG tablet - QUEtiapine (SEROquel) 400 MG tablet To be sent to: - [facility] - [place], [place] - [address] [facility] documented in this encounter Plan of Treatment Upcoming Encounters Date Type Department Care Team (Late st Contact Info) Description 03/16/2025 11:30 AM EDT Clinical Support [facility] 230 [place] [address] Yancy Quezada RN documented as of this encounter Visit Diagnoses Diagnosis Depression, psychotic (CMS/HCC) Major depressive disorder, single episode, unspecified documented in this encounter Additional Health Concerns Assessment Noted Time PHQ-9 Depression Total Score: 3 09/18/19 24 3:35 PM EDT documented as of this encounter Care Teams Counter Dish Carrier Relationship Specialty Start Date End Date Krys Myers MD [address] [place] [address] PCP - General Family Medicine 04/06/20 documented as of this encounter
--- OUTSIDE RECORDS SUMMARY | 2025-01-26 15:27 | XMS_ITS | Encounter Summary ---
Author Organization [employer] Address [address] [facility] 7t [place] [address] Care Team Providers Care Ladle Liner Helper Name Role Phone Krys Myers MD Primary Care Provider [phone] Reason for Visit * Reason Comments Med Refill Encounter Details Date Type Department Care Team ([facility] Contact Info) Description 07/14/2024 Refill [facility] 230 [place], [place] [phone] Name, MD James [address] [place] [address] Benign hypertension Social History Tobacco Use Types [...] Description 03/16/2025 11:30 AM EDT Clinical Support [facility] [address] [place] [phone] Yancy Quezada RN documented as of this encounter Visit Diagnoses Diagnosis Benign hypertension Essential hypertension, benign documented in this encounter Additional Health Concerns Assessment Noted Time PHQ-9 Depression Total Score: 3 09/18/19 24 3:35 PM EDT documented as of this encounter Care Teams Ladle Liner Helper Relationship Specialty Start Date End Date Krys Myers MD [address] [place] [address] PCP - General Family Medicine 04/06/20 documented as of this encounter
--- OUTSIDE RECORDS SUMMARY | 2025-01-26 15:27 | XMS_ITS | Encounter Summary ---
Author Organization [employer] Address [address] [facility] [address] 7t [place] [address] Care Team Providers Care Child Care Teacher Name Role Phone Krys Myers MD Primary Care Provider [phone] Reason for Visit * Reason Comments Med Refill Encounter Details Date Type Department Care Team ([facility] Contact Info) Description 09/09/2023 Refill [facility] [address] [place], [place] [phone] Krys Myers MD 230 [place] [address] Social History Tobacco Use Types Packs/Day Years [...] 11:30 AM EDT Clinical Support [facility] 230 [place] [address] Yancy Quezada, [facility] documented as of this encounter Visit Diagnoses Not on filedocumented in this encounter Care Teams Child Care Teacher Relationship Specialty Start Date End Date Krys Myers MD 230 [place] [address] PCP - General Family Medicine 04/06/20 documented as of this encounter
--- OUTSIDE RECORDS SUMMARY | 2025-01-26 15:27 | XMS_ITS | Encounter Summary ---
Author Organization [employer] Address [address] [facility] [address] 7t [place] [address] Care Team Providers Care Stem Mounter Name Role Phone Krys Myers MD Primary Care Provider [phone] Encounter Details Date Type Department Care Team (Late st Contact Info) Description 09/22/2024 Orders Only [facility] [address] [place] [address] Briseida Hunt Social History Tobacco Use Types Packs/Day Years [...] Description 03/16/2025 11:30 AM EDT Clinical Support [facility] 230 [place] [address] Yancy Quezada RN documented as of this encounter Procedures Procedure Name Priority Date/Time Associated Diagnosis Comments HPV MRNA E6/E7 REFLEX TO HPV 16, 18/45 Routine 04/17/2024 12:00 AM EST documented in this encounter Results * HPV mRNA E6/E7 w/Reflex to HPV Genotypes 16, 18/45 (04/17/2024 12:00 AM EST) us Historical Provider LAB CYTOLOGY ORDERABLES F inal Result [facility] [address] [place] [address] [phone] documented in this encounter Visit Diagnoses Not on filedocumented in this encounter Additional Health Concerns Assessment Noted Time PHQ-9 Depression Total Score: 3 09/18/19 24 3:35 PM EDT documented as of this encounter Care Teams Stem Mounter Relationship Specialty Start Date End Date Krys Myers MD 230 [place] [address] PCP - General Family Medicine 04/06/20 documented as of this encounter
--- OUTSIDE RECORDS SUMMARY | 2025-01-26 15:27 | XMS_ITS | Encounter Summary ---
Author Organization [employer] Address [address] [facility] 7t [place] [address] Care Team Providers Care Tech Ed/Woodshop Teacher Name Role Phone rKys Myers MD Primary Care Provider [phone] Reason for Visit * Reason Comments Med Refill Encounter Details Date Type Department Care Team ([facility] Contact Info) Description 01/23/2025 Refill [facility] 230 [place], [place] [phone] Krys Myers MD 230 [place], [place] [phone] Allergy to shellfish Social History Tobacco Use Types Packs/Day Years [...] Description 03/16/2025 11:30 AM EDT Clinical Support [facility] [address] [place] [phone] Yancy Quezada RN documented as of this encounter Visit Diagnoses Diagnosis Allergy to shellfish Allergy to seafood documented in this encounter Additional Health Concerns Assessment Noted Time PHQ-9 Depression Total Score: 3 09/18/19 24 3:35 PM EDT documented as of this encounter Care Teams Tech Ed/Woodshop Teacher Relationship Specialty Start Date End Date Krys Myers MD [address] [place] [address] PCP - General Family Medicine 04/06/20 documented as of this encounter
--- OUTSIDE RECORDS SUMMARY | 2025-01-26 15:27 | XMS_ITS | Encounter Summary ---
Author Organization [email or web address] Address [address] [facility] 7t [place] [address] Care Team Providers Care Hull Sorter Name Role Phone Krys Myers MD Primary Care Provider [phone] Reason for Visit * Reason Onset Date Comments Med Refill 01/19/2025 Encounter Details Date Type Department Care Team ([facility] st Contact Info) Description 01/19/2025 Telephone [facility] 230 [place], [place] [phone] Krys Myers MD 230 [place], [place] [phone] Med Refill Social History Tobacco Use Types [...] Telephone Encounter - Waleska Pritchett LPN - 01/19/2025 3:02 PM EDT Medication was sent to [facility] on 11/17/24 #30 with 3 refills. * Telephone Encounter - Tobi Mullins - 01/19/2025 2:56 PM EDT TC from pt requesting medication refill. Medications needing refill: QUEtiapine (SEROquel) 400 MG tablet To be sent to: [facility] - [place], [place] - [address] [place] [address] documented in this encounter Plan of Treatment Upcoming Encounters Date Type Department Care Team (Late st Contact Info) Description 03/16/2025 11:30 AM EDT Clinical Support [facility] 230 [place] [address] Yancy Quezada, [facility] documented as of this encounter Visit Diagnoses Not on filedocumented in this encounter Additional Health Concerns Assessment Noted Time PHQ-9 Depression Total Score: 3 09/18/19 24 3:35 PM EDT documented as of this encounter Care Teams Hull Sorter Relationship Specialty Start Date End Date Krys Myers MD 230 [place] [address] PCP - General Family Medicine 11/11/20 documented as of this encounter
== END 2025-01-26 14:12 | disposition home or self-care (01) ==
LOC: HO.HHCX 14:11
PROVIDERS: Visit Provider Internal Medicine Geriatric Medicine
DX: M25.571 Pain in right ankle and joints of right foot (principal)
CPT/HCPCS: 73630

== ENCOUNTER → 2025-01-26 14:12 | Outpatient (BNV) | payer MEDICAID, SELFPAY | PROVIDERS: Visit Provider Radiology Diagnostic Radiology | DX: S92.511A Displaced fracture of proximal phalanx of right lesser toe(s), initial encounter for closed fracture (principal) | CPT/HCPCS: 73630 ==